=== PATIENT | male | born 1945 | race Caucasian/White ===

== ENCOUNTER → 2016-06-19 | Day surgery (SDC) | payer OTHER ==
--- NOTE | 2016-06-05 21:44 | HP ---
CC: Dr. Rose; Dr. Baig ADMISSION HISTORY AND PHYSICAL: DATE OF ADMISSION: 06/19/16 ATTENDING SURGEON: Edgard Lopez MD CHIEF COMPLAINT: Right inguinal hernia. HISTORY OF PRESENT ILLNESS: This is a 71-year-old male with Parkinson disease who was found on exam by Dr. Baig to have a right inguinal hernia. The patient states that he has had some sensitivi ty in the area of the right groin intermittently over the past 3 months, but nothing to suggest inca rceration or strangulation. Exam by Dr. Lopez on 05/20/16 confirmed the presence of a moderate- si zed reducible and nontender right inguinal hernia. No hernia was noted on the left. Dr. Lopez dis cussed with him the options for repair including surgical approaches. The patient understands the i ndications, risks, benefits, and alternatives including the option of no surgery for now and would l asaf to proceed as scheduled with open repair of right inguinal hernia with mesh. PAST MEDICAL HISTORY: Parkinson disease (followed by Dr. Deleon), BPH (followed by Dr. Baig), hypothyroidism (on replacement), and memory impairment. PAST SURGICAL HISTORY: Include decompressive surgery L4-5 in 2014 done in [facility] with proble ms with postoperative hypotension. He had a prior lumbar surgery here in [place]. He has also had p rior right ankle surgery and appendectomy remotely. No additional surgical or anesthesia problems r eported. CURRENT MEDICATIONS: 1. Donepezil 5 mg 2 tablets at bedtime. 2. Carbidopa/levodopa 25/100 mg one-half tablet 7 times daily. 3. Amantadine 100 mg b.i.d. 4. Selegiline 5 mg 1 tablet b.i.d. in the morning and at noon. 5. Flomax 0.4 mg once daily. 6. Levothyroxine 125 mg once daily. 7. Namenda 28 mg every day. 8. Tylenol p.r.n. 9. Sertraline (just started 25 mg once daily and to titrate to 50 mg once daily). 10. Clonazepam 0.5 mg once daily p.r.n. for anxiety (has not needed). 11. The patient also uses an unspecified topical medication p.r.n. for rosacea. ALLERGIES: None known. FAMILY HISTORY: Negative for anesthesia problems, bleeding, or clotting disorders. SOCIAL HISTORY: The patient is . 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 He denies use of tobacco. He drinks an average of one-half glass of wine per day. He denies any other recreational drug use. REVIEW OF SYSTEMS: General: No recent constitutional symptoms or acute illnesses. His weight has r emained relatively stable. Cardiovascular: No history of hypertension, chest pain, palpitations, o r heart murmur. Respiratory: No history of asthma, chronic cough, or shortness of breath. GI: No problems reported. : BPH. No recent changes. Endocrine: He is on thyroid replacement. No his tory of diabetes. Neuropsych: No as above. PHYSICAL EXAMINATION GENERAL: A well-nourished, well-developed male, in no acute distress. VITAL SIGNS: Height 69 inches, weight 176 pounds, temperature 97.6, blood pressure 124/78, pulse 56 , and respirations 18. HEENT: Pupils equal, round, and reactive. EOMs intact. No conjunctival pallor. Oropharynx, teeth in good repair. No intraoral lesions. NECK: No lymphadenopathy, thyromegaly, or masses. LUNGS: Clear to auscultation. No wheezes. HEART: Regular rate and rhythm. No murmur appreciated. ABDOMEN: Soft, nontender to palpation. No palpable masses or organomegaly. Right groin hernia per Dr. Lopez's exam. No hernia on the left and testes are otherwise normal without palpable masses. RECTAL: Not done. BACK: No spinous process or CVA tenderness. EXTREMITIES: No edema. NEUROLOGIC: Grossly intact though he does have some tremor of the right upper extremity. Some stif fness with ambulation and some Parkinson's-like facial features. SKIN: Warm and dry. No suspicious rashes or lesions noted. IMPRESSION: Right inguinal hernia. PLAN: Open repair, right inguinal hernia with mesh. DWAYNE PERSAUD [id number]/[facility] #: [id number]
[~2016-06-19] MED LIST: Acetaminophen TAB* 325 MG PO PRN; Buffered Lidocaine 1% SYR 3ML* 3 ML/SYR SYRINGE INTRADERM ONE; Buffered Lidocaine 1% SYR 3ML* 3 ML/SYR SYRINGE ONE; Bupivacaine 0.5% W/EPI SDV* 30 ML VIAL ONE; Lidocaine 1% INJ* 10 MG/ML 30 ML SDV ONE; Lidocaine 2% MPF* 2 ML VIAL ONE; Propofol* 10 MG/ML 20 ML BTL IV PUSH ONE; ceFAZolin 2 GM PREMIX (*) 2 GM/50 ML BAG IVPB ONE; fentaNYL* 50 MCG/ML 2 ML VIAL (100 MCG VIAL) ONE; traMADol TAB* 50 MG PO PRN
[2016-06-19 09:04] VITALS: BP 126/75
--- NOTE | 2016-06-19 11:09 | OP ---
CC: Dr. Edgard Lopez; Dr. Rose; Dr. Baig OPERATIVE REPORT: DATE OF OPERATION: 06/19/16 DATE OF : 47 SURGEON: Edgard Lopez MD DREDGE OPERATOR SUPERVISOR: DWAYNE Guardado ANESTHESIOLOGIST: Gaurav Hawk MD ANESTHESIA: LMAC. PRE-OP DIAGNOSIS: Right inguinal hernia. POST-OP DIAGNOSIS: Right inguinal hernia. OPERATIVE PROCEDURE: Open right inguinal hernia repair with mesh. DESCRIPTION OF PROCEDURE: The patient was supine on the operative table. After adequate intravenou s sedation, compression stockings, Laurence Hugger warmer, and intravenous antibiotics, the right groin was clipped and prepped with antiseptic and draped in a sterile fashion. Local infiltrative anesthe moni was administered. Approximately 2-1/2 to 3-inch incision was created. Dissection carried down t o the tissue layers to the external oblique, which was opened in the direction of its fibers. The c ord structures were dissected free and an indirect sac was identified, dissected free and reduced. There was no direct space hernia. A cone mesh plug was placed into the internal ring, sutured with 2-0 Polysorb. A second piece of mesh was placed over the inguinal floor, sutured at the tubercle. Tails were split, brought around the cord structures, and tacked down laterally. External oblique wa s closed over top with 2-0 Polysorb, Nicolás's with 3-0 Polysorb, skin with 4-0 Surgipro followed by sterile dressings. He tolerated the procedure well. He was brought to Recovery in good condition. No complications. No drains. No pathologic specimens. Sponge and instrument counts correct. Rubi mated blood loss was less than 10 mL. [id number]/[facility] #: [id number]
== END | disposition home or self-care (01) ==
LOC: OR 06:02
PROVIDERS: ATTEND Surgery
DX: K40.90 Unilateral inguinal hernia, without obstruction or gangrene, not specified as recurrent (principal); G20 Parkinson's disease; E03.9 Hypothyroidism, unspecified
CPT/HCPCS: C1781; J0690; J2704; J3010

== ENCOUNTER 2018-05-21 08:52 | Inpatient (IN) | payer MEDICARE, OTHER ==
--- NOTE | 2018-05-21 09:29 | ED ---
Abdominal Pain/Male - HPI Summary HPI Summary: This pt is a 73 y/o male [facility] c/o abdominal pain x2 days. reports that pt's pain has worsened over the last 24 hours. states pt also has decreased appetite, weakness, and confusion (more than usual per ). Per , pt fell yesterday and hit his head on the right side. Denies LOC. also notes pt had a normal meal 2 days ago. Denies fever, chills, chest pain, SOB, nausea, vomiting, headache. states pt was treated for a UTI and finished the antibiotic course 3 days ago. Pt followed up with his urologist and was told he no longer had a UTI. reports pt had a CT scan a couple of months ago that showed a hernia. PMHx includes parkinson's disease, chronic back pain. - History of Current Complaint Chief Complaint: EDAbdPain Stated Complaint: ABD PAIN Time Seen by Provider: 05/21/18 09:18 Hx Obtained From: Patient, Family/[employer] - Onset/Duration: Lasting Days - 2, Still Present, Worse Since - the past 24 hours Timing: Lasting Days - 2 Severity Currently: Severe Pain Intensity: 10 Pain Scale Used: 0-10 Numeric Location: Diffuse Radiates: No Aggravating Factor(s): Nothing Alleviating Factor(s): Nothing Associated Signs And Symptoms: Positive: Decreased Appetite, Other - POS: weakness, confusion. Negative: Fever, Chest Pain, Nausea, Vomiting - Allergies/Home Medications Allergies/Adverse Reactions: Allergies Allergy/AdvReac Type Severity Reaction Status Date / Time No Known Allergies Allergy Verified 02/09/18 13:53 PMH/Surg Hx/FS Hx/Imm Hx Endocrine/Hematology History: Reports: Hx Thyroid Disease Denies: Hx Diabetes Cardiovascular History: Denies: Hx Hypertension, Hx Pacemaker/ICD Respiratory History: Denies: Hx Asthma History: Reports: Other Problems/Disorders - prostrate problems Denies: Hx Renal Disease Musculoskeletal History: Reports: Hx Back Problems, Other Musculoskeletal History - STENOSIS L3/4- HAD SURGERY X 2 - 6 1/2 AND 2 1/2 YEARS AGO Sensory History: Reports: Hx Contacts or Glasses - glasses for reading Denies: Hx Hearing Aid Opthamlomology History: Reports: Hx Contacts or Glasses - glasses for reading Neurological History: Reports: Other Neuro Impairments/Disorders - Parkinson's, PAIN CLINIC PATIENT Psychiatric History: Reports: Hx Anxiety, Hx Panic Disorder - WHEN PT GETS ANXIOUS HE HAS DIFFICULTY UNDERSTANDING - Surgical History Surgery Procedure, Year, and Place: RT ANKLE [id number],APPY 1964,SPINE LAMINECTOMY-2007 (Dr. Hernandez), BACK SURGERY-[facility]. HERNIA REPAIR 06/2016 Hx Anesthesia Reactions: No Infectious Disease History: No Infectious Disease History: Denies: Traveled Outside the [place] in Last 30 Days - Family History Known Family History: Positive: Cardiac Disease - mother Family History: father with lung CA (smoker) - Social History Alcohol Use: Weekly Alcohol Amount: 3 glasses of wine/week Substance Use Type: Reports: None Smoking Status (MU): Never Smoked Tobacco Review of Systems Constitutional: Other - POS: decreased appetite Negative: Fever, Chills Negative: Chest Pain Negative: Shortness Of Breath Positive: Abdominal Pain. Negative: Vomiting, Nausea Musculoskeletal: Other - POSITIVE: chronic back pain Neurological: Other - POSITIVE: confusion Positive: Weakness. Negative: Headache All Other Systems Reviewed And Are Negative: Yes Physical Exam - Summary Physical Exam Summary: VITAL SIGNS: Reviewed. GENERAL: Patient is a well-developed and nourished male who is lying comfortable in the stretcher. Patient is not in any acute respiratory distress. HEAD AND FACE: Normocephalic and atraumatic. EYES: PERRLA, EOMI x 2, No injected conjunctiva. EARS: Hearing grossly intact. Ear canals and tympanic membranes are WNL. MOUTH: Oropharynx within normal limits. NECK: Supple, trachea is midline, no adenopathy, no JVD. CHEST: Symmetric, no tenderness at palpation LUNGS: Clear to auscultation bilaterally. No wheezing or crackles. CVS: RRR, S1 and S2 present, no murmurs or gallops appreciated. ABDOMEN: Soft, diffuse abd tenderness with some guarding. No signs of distention. Positive bowel sounds. No rebound and no masses palpated. No abdominal bruit or pulsations. EXTREMITIES: FROM in all major joints, no edema, no cyanosis or clubbing. NEURO: Alert and oriented x 3. No acute neurological deficits. Speech is normal. SKIN: Dry and warm Triage Information Reviewed: Yes Vital Signs On Initial Exam: Initial Vitals Temp Pulse Resp BP Pulse Ox 97.7 F 61 16 97/66 100 12/21/18 08:58 05/21/18 08:58 05/21/18 08:58 05/21/18 08:58 05/21/18 08:58 Vital Signs Reviewed: Yes Diagnostics - Vital Signs Vital Signs Temp Pulse Resp BP Pulse Ox 05/21/18 08:58 97.7 F 61 16 97/66 100 - Laboratory Result Diagrams: 05/21/18 09:45 05/21/18 09:45 Lab Statement: Any lab studies that have been ordered have been reviewed, and results considered in the medical decision making process. - Radiology Abdomen XR Radiology Interpretation Completed By: Radiologist Summary of Radiographic Findings: IMPRESSION: Nonspecific bowel gas pattern. Large amount of stool throughout the colon. Dr. Gerard has reviewed this report. - CT Abdomen/Pelvis CT CT Interpretation Completed By: Radiologist Summary of CT Findings: IMPRESSION: Moderate to large amount of free air in the abdomen most concentrated in the upper abdomen although scattered throughout. There is focal increased area of free air along the fourth portion of the duodenum. The possibility that this may represent the origin of the perforation should BE considered. Left-sided inguinal hernia containing omentum. Findings discussed with Dr. Geradr at 10:24 AM. - EKG 09:41 Cardiac Rate: NL - at 73 bpm EKG Rhythm: Sinus Rhythm EKG Comparison: No Significant Change - from prior EKG on 04/05/08 Summary of EKG Findings: No ST elevations. Q wave in lead III. Re-Evaluation - Re-Evaluation First Eval Re-Evaluation Time: 10:42 Comment: I discussed the CT results with the pt and . Abdominal Pain Fem Course/Dx - Course Assessment/Plan: This pt is a 73 y/o male presenting to [facility] c/o abdominal pain x2 days. reports that pt's pain has worsened over the last 24 hours. states pt also has decreased appetite, weakness, and confusion (more than usual per ). Per , pt fell yesterday and hit his head on the right side. Denies LOC. also notes pt had a normal meal 2 days ago. Denies fever , chills, chest pain, SOB, nausea, vomiting, headache. states pt was treated for a UTI and finished the antibiotic course 3 days ago. Pt followed up with his urologist and was told he no longer had a UTI. reports pt had a CT scan a couple of months ago that showed a hernia. PMHx includes parkinson's disease, chronic back pain. Blood work without any significant abnormality except for increased WBC of 14.4, INR is 1.21, sodium 134, BUN is 35 creatinine is 1.62 consistent with an acute renal insufficiency. Glucose is 118, total bilirubin is 1.3, and CRP is 244. X-ray of the abdomen shows no acute pathology. Abdominal pelvic CT impression: moderate to large amount of free air in the abdomen most concentrating in the upper abdomen although the scattered throughout. There is a focal increased areas of free air and on the fourth portion of the duodenum. The possibility that this may represent the origin of the perforation should be considered. Left-sided inguinal hernia containing omentum. I discussed the case with Dr. Padilla, surgeon, who recommends an NG tube and Orellana catheter and he will consult for this patient. After Dr. Padilla assessed the patient in the emergency room, he accepted the patient for admission and pt will go to the OR from the emergency department. Patient continues to be hemodynamically stable, alert and oriented 3. - Diagnoses Provider Diagnoses: Peritonitis, Small bowel perforation - Provider Notifications Discussed Care Of Patient With: Rory Padilla Time Discussed With Above Provider: 10:30 Instructed by Provider To: Other - I discussed pt care with Dr. Padilla, surgeon , who recommends NG tube and orellana catheter and he will consult on the pt. Discharge - Sign-Out/Discharge Documenting (check all that apply): Patient Departure - Admit to [facility] - Discharge Plan Condition: Stable Disposition: ADMITTED TO [facility] - Billing Disposition and Condition Condition: STABLE Disposition: Admitted to [facility] - Attestation Statements Document Initiated by Feroz: Yes Documenting Scribe: Amaris Washington Provider For Whom Feroz is Documenting (Include Credential): Aaron Gerard MD Scribe Attestation: Amaris Hanna, scribed for Aaron Gerard MD on 05/21/18 at 1902. Scribe Documentation Reviewed: Yes Provider Attestation: The documentation as recorded by the Amaris peck accurately reflects the service I personally performed and the decisions made by me, Aaron Gerard MD Status of Scribe Document: Viewed
[2018-05-21] MEDS ORDERED: NS 0.9% 1000 ML* 1,000 ML IV ONE ×2 (09:34→10:34)
[2018-05-21 10:13] LABS: Activated Partial Thrombo Time 29.4 seconds (26.0-36.3); INR 1.21 (0.77-1.02)
[2018-05-21 10:15] LABS: Hematocrit 42 % (42-52); Hemoglobin 14.2 g/dl (14.0-18.0); Mean Corpuscular HGB Conc 34 g/dl (31-36); Mean Corpuscular Hemoglobin 30 pg (27-31); Mean Corpuscular Volume 90 fL (80-94); Red Cell Distribution Width 14 % (10.5-15); White Blood Count 14.4 10^3/ul (3.5-10.8)
[2018-05-21 10:22] LABS: Troponin I 0.02 ng/mL (<0.04)
[2018-05-21 10:24] LABS: ALT 12 U/L (7-52); Albumin 4.3 g/dL (3.2-5.2); Albumin/Globulin Ratio 1.4 (1-3); Alkaline Phosphatase 100 U/L (34-104); BUN/Creatinine Ratio 21.6 (8-20); Blood Urea Nitrogen 35 mg/dL (6-24); C Reactive Protein 244.86 mg/L (<8.01); CO2 Carbon Dioxide 24 mmol/L (22-32); Chloride 102 mmol/L (101-111); EGFR African American 50.9 (>60); EGFR Non-African American 42.1 (>60); Glucose 118 mg/dL (70-100); Sodium 134 mmol/L (135-145); Total Protein 7.3 g/dL (6.4-8.9)
[2018-05-21 10:25] LABS: BNP 34 pg/mL (<=100)
[2018-05-21 10:51] LABS: ABS Basophils 0 10^3/ul (0-0.2); ABS Eosinophils 0 10^3/ul (0-0.6); ABS Lymphocytes 0.6 10^3/ul (1.0-4.8); ABS Monocytes 0.5 10^3/ul (0-0.8); ABS Neutrophils 13.2 10^3/ul (1.5-7.7); ABS Nucleated RBC 0 10^3/ul; Eosinophil % 0 %; Lymphocyte % 4.3 %; Mean Platelet Volume 8.7 fL (7.4-10.4); Nucleated Red Blood Cells % 0.2; Platelet Count 195 10^3/ul (150-450)
[2018-05-21 10:58] LABS: Anion Gap 8 mmol/L (2-11)
[2018-05-21 11:35] LABS: Urine Appearance Cloudy; Urine Bacteria Absent (Absent); Urine Bilirubin Negative (Negative); Urine Blood Negative (Negative); Urine Color Amber; Urine Glucose Negative (Negative); Urine Granular Casts Present (Absent); Urine Ketones Trace (Negative); Urine Nitrite Negative (Negative); Urine Protein 1+(30 mg/dL) (Negative); Urine Red Blood Cell 2+(6-10/hpf) (Absent); Urine Specific Gravity 1.024 (1.010-1.030); Urine Squamous Epithelial Cell Present (Absent); Urine Urobilinogen Negative (Negative); Urine White Blood Cell Trace(0-5/hpf) (Absent)
[2018-05-21] MEDS ORDERED: Midazolam* 1 MG/ML 5 ML VIAL (5 MG) ONE (12:14)
[2018-05-21] MEDS ORDERED: fentaNYL* 50 MCG/ML 2 ML VIAL (100 MCG VIAL) ONE ×4 (12:14→16:33)
[2018-05-21] MEDS ORDERED: Dexamethasone IV* 4 MG/ML 1 ML (4 MG) ONE (12:14)
[2018-05-21] MEDS ORDERED: Propofol* 10 MG/ML 20 ML BTL ONE (12:14)
[2018-05-21] MEDS ORDERED: Ondansetron INJ* 2 MG/ML VIAL ONE ×2 (12:14→16:33)
[2018-05-21] MEDS ORDERED: Cisatracurium* 2 MG/ML MDV 5 ML ONE ×2 (12:14→13:51)
[2018-05-21] MEDS ORDERED: KETAMINE HCL* 50 MG/ML 10 ML VIAL ONE (12:14)
[2018-05-21] MEDS ORDERED: Lidocaine 2% PF * 5 ML VIAL ONE (12:14)
[2018-05-21] MEDS ORDERED: Bupivacaine 0.25% EPI 200,000* 30 ML SDV ONE (12:15)
[2018-05-21] MEDS ORDERED: Phenylephrine INJ* 10 MG/ML 1 ML VIAL (10 MG) ONE (12:15)
--- NOTE | 2018-05-21 12:32 | CONSULT ---
Consult Consult: SEE DICTATED H&P This 73 yo M on NSAIDs for back pain with Parkinson's presented to ED with 2 day h/o abd pain, worse over 1 day. On exam he has peritonitis and on imaging he has free air. Likely diagnosis is perforated PUD. I discussed findings with the patient and his . I have recommended laparoscopy, surgical exploration, removal or repair of perforated viscus. He was explained the operation, indication, risks, benefits, alternatives and option of no treatment. He understands that findings at surgery will determine the procedure. Risks explained including, not limited to: bleeding, infection, pain , scarring, blood clots, pneumonia, stroke, cardiac event, worsening of mental status, need for open procedure or additional procedures, and risk of GETA. All questions answered. He stated understanding and agrees to proceed.
[2018-05-21] MEDS ORDERED: ceFAZolin 2 GM PREMIX in ORs 2 GM/50 ML BAG IVPB ONE (12:43)
--- NOTE | 2018-05-21 12:55 | HP ---
CC: Dr. Rose * DATE OF ADMISSION: 05/21/2018. ATTENDING SURGEON: Dr. Rory Padilla * (DWAYNE Guardado dictating). CHIEF COMPLAINT: Perforated viscus. HISTORY OF PRESENT ILLNESS: This is a 73-year-old male with advanced Parkinson' s disease who began to feel ill Thursday evening. He describes pain in the lower abdomen at that time associated with some anorexia, although he did eat his supper on Thursday. He describes a feeling of an "explosion," though he did not have severe pain initially. Pain has progressed over the last 24 hours to the point where it is involving the entire abdomen, though it does tend to move. It is also associated with anorexia, slight nausea, but no vomiting. The patient does have some chronic issues with constipation. He did take MiraLax yesterday with some bowel movement last evening and last night. He does have known pancolonic diverticulosis, but has never had an episode of diverticulitis. His last colonoscopy was July 2017. His previous abdominal surgeries include an appendectomy and a right inguinal herniorrhaphy. PAST MEDICAL HISTORY: Parkinson's disease, BPH, hypothyroidism, memory impairment, chronic low back pain. PAST SURGICAL HISTORY: Open right inguinal hernia June 2016, decompressive lumbar surgery in 2013, right ankle surgery and appendectomy remotely. He did have significant hypotension following his lumbar surgery. CURRENT MEDICATIONS: 1. Selegiline 5 mg b.i.d. 2. Amantadine 100 mg b.i.d. 3. Tamsulosin 0.4 mg once daily. 4. Memantine 28 mg once daily. 5. Levothyroxine 125 mcg once daily. 6. Carbidopa/Levodopa 25-100 one-half tablet 6 times daily. 7. Diclofenac 75 mg b.i.d. 8. Mirabegron (Myrbetriq) 25 mg once daily. 9. Donepezil 5 mg b.i.d. DRUG ALLERGIES: None known. FAMILY HISTORY: Negative for anesthesia problems, bleeding or clotting disorders. SOCIAL HISTORY: The patient is . 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 He denies the use of tobacco. He drinks on average one-half glass of wine per day. REVIEW OF SYSTEMS: General: He finished oral antibiotics for a UTI on May 18. He was also seen by Dr. Baig at that time. He has been seen regularly by the Pain [facility] for lumbar back pain. HEENT: No additions. Cardiovascular: No history of chest pain, palpitations, hypertension, or heart murmur. Respiratory: No history of asthma, chronic cough, or shortness of breath. GI: As above. He also has a known left inguinal hernia by recent studies and confirmed on today's CT. It has been minimally symptomatic. : BPH. Endocrine: He is on thyroid replacement. No history of diabetes. Neuro/ Psych: Parkinson's disease, followed by Dr. Yeager. PHYSICAL EXAMINATION GENERAL: Well-nourished, well-developed male with typical Parkinson's features who appears in mild distress. SKIN: Warm and dry, no suspicious rashes or lesions. VITAL SIGNS: Height 5'9", weight 180 pounds. Temperature 97.7, blood pressure ranging from 97 to 120/66 to 76, pulse ranging from 61 to 74, respirations 16, room air saturation 97 to 100 percent. HEENT: Pupils equal and round, reactive. EOM's intact. Conjunctivae pink. Oropharynx: Mucus membranes moist. NECK: No lymphadenopathy, thyromegaly, or masses. LUNGS: Clear to auscultation. No rales or wheezes. HEART: Regular rate and rhythm. No murmur appreciated. ABDOMEN: Mildly distended, tympanitic, bowel sounds are present. Abdomen is firm with diffuse tenderness consistent with peritonitis. There is guarding present. There is a small palpable, reducible left inguinal hernia. EXTREMITIES: No edema. GENITALIA: Otherwise not examined. RECTAL: Not done. NEUROLOGIC: Consistent with known Parkinson's disease. IMAGING STUDIES: Noncontrast CT abdomen and pelvis: Reveals free air concentrated in the upper abdomen around the liver and concentration around a portion of the duodenum. There is also scattered free air in the lower abdomen and pelvis. There is diverticulosis, but no definite diverticulitis noted. There is omentum-containing left inguinal hernia. IMPRESSION: Perforated viscus most likely duodenum secondary to NSAID use. PLAN: The patient to be seen by Dr. Padilla for confirmation of findings and plan. Will likely need operative intervention, i.e. laparoscopy with oversewing of perforated duodenal ulcer. MARIA E PENA, [place] [id number]/[facility] #: [id number] NEY
[2018-05-21] MEDS ORDERED: Zosyn 3.375 GM IV - ED ONCE IVPB ONE ×2 (14:00)
[2018-05-21] MEDS ORDERED: Ondansetron INJ* 2 MG/ML VIAL IV PRN (14:40)
[2018-05-21] MEDS ORDERED: Naloxone* 0.4 MG/ML 1 ML VIAL IV PRN (14:40)
[2018-05-21] MEDS ORDERED: Neostigmine Methylsulfate* 1 MG/ML 10 ML VIAL (1 mg/ml) ONE (14:50)
[2018-05-21] MEDS ORDERED: Glycopyrrolate IV* 0.2 MG/ML 1 ML VIAL ONE (14:50)
--- NOTE | 2018-05-21 16:22 | BRIEFOPN ---
Brief Operative Note - Surgery Procedures: PREOP DX: PERFORATED VISCUS POSTOP DX: PERFORATED DIVERTICULITIS PROC: DIAGNOSTIC LAPAROSCOPY; LAPAROTOMY; SIGMOID COLECTOMY; END COLOSTOMY; HARPAL POUCH SURG: MECENAS ASSIST: FOSTER ANES: GET; TOAL EBL: <30ML IVF: 1.7 L CRYST SPEC: SIGMOID COLON DRAIN: NONE COMPL: NONE COND: STABLE TO RR FINDINGS: PERFORATION IN SIGMOID COLON WITH PURULENT FLUID IN PELVIS; EXUDATE IN UPPER ABDOMEN.
[2018-05-21] MEDS ORDERED: Naloxone* 0.4 MG/ML 1 ML VIAL IV PUSH PRN (16:26)
[2018-05-21] MEDS: fentaNYL* 50 MCG/ML 2 ML VIAL (100 MCG VIAL) IV PRN ×2 (16:36→16:50)
[2018-05-21] MEDS ORDERED: Morphine PCA ADULT* 5 MG/ML 30 ML ONE (16:49)
[2018-05-21] MEDS ORDERED: Morphine PCA ADULT* 5 MG/ML 30 ML PCA SCH (17:00)
[2018-05-21] MEDS: NS 0.9% 1000 ML* 1,000 ML IV SCH (17:50)
[2018-05-21] MEDS: Piperacillin/Tazobactam VIAL*) 3.375 GM in NS 0.9% 100 ML* 100 ML IVPB SCH (23:05)
[2018-05-22] MEDS: NS 0.9% 1000 ML* 1,000 ML IV SCH ×3 (03:13→22:44)
--- NOTE | 2018-05-22 05:04 | CONS ---
[facility] MEDICINE CONSULTATION REPORT: DATE OF ADMISSION: 05/21/18 DATE OF CONSULT: 05/21/18 PROVIDER: Romy Hill NP ATTENDING PHYSICIAN: Dr. Padilla. CONSULTING PHYSICIAN: Dr. Ange Conner (dictated by Romy Hill NP) REASON FOR CONSULT: Co-management of chronic medical conditions. HISTORY OF PRESENT ILLNESS: Mr. Zepeda is a 73-year-old with a past medical history significant for Parkinson's, hypothyroid, BPH, who presented to the emergency room for evaluation of abdominal pain. The patient reports that he started having abdominal discomfort approximately 2 days ago that progressively worsened in the last 24 hours. He does report decreased appetite , weakness, and increased confusion. He states that yesterday afternoon, his abdominal pain became significantly worse and was significantly worse overnight , so he presented to the emergency room for further evaluation. He does report increased anxiety, increased confusion, and increased weakness as well as nausea since the abdominal pain has become progressively worse. He denies any vomiting, fever, or chills. He denies any chest pain, cough, congestion, or hemoptysis. He does report nausea. Denies any diarrhea. Does report significant [id number] abdominal pain. Denies any gross hematuria, dysuria, focal weakness, or sensory loss. Denies any visual complaints, dysphagia, arthralgias, myalgias, rashes, lesions, psychosis, or anxiety. The patient was evaluated at the bedside in preop. PAST MEDICAL HISTORY: Significant for: 1. Parkinson's. 2. Chronic back pain. 3. Hypothyroidism. 4. BPH. PAST SURGICAL HISTORY: 1. Hernia repair. 2. Back surgery. 3. Left ankle ORIF. 4. Appendectomy in 1963. 5. Laminectomy in 2007. HOME MEDICATIONS: Include: 1. Symmetrel 100 mg p.o. b.i.d. 2. Synthroid 125 mcg p.o. daily. 3. Namenda 28 mg p.o. daily. 4. Selegiline 5 mg p.o. daily. 5. Tamsulosin 0.4 mg p.o. daily. 6. Carbidopa/levodopa 25/100 half tablet 6 times daily. 7. Donepezil (Aricept) 5 mg p.o. b.i.d. 8. Voltaren 75 mg p.o. b.i.d. 9. Mirabegron 25 mg p.o. daily. ALLERGIES: No known drug allergies. FAMILY HISTORY: No reported history of coronary artery disease or diabetes. Father with a history of lung cancer. Grandfather with a history of cancer. SOCIAL HISTORY: Denies any tobacco or illicit drug use. Does report occasional alcohol use. He is . Surrogate decision maker in the event he is unable to make his own decisions is his . He is a full code. REVIEW OF SYSTEMS: There has been no fever, chills, or unintentional weight loss. Denies any chest pain or edema. Denies any cough, congestion, or hemoptysis. Denies any shortness of breath. GI: Does report nausea and mid-to- lower diffuse abdominal pain. Denies any vomiting or diarrhea. : Denies any gross hematuria or dysuria. Denies any urinary frequency. Neuro: Denies any focal weakness or sensory loss. Eyes: No visual complaints. ENT: No dysphagia. Musculoskeletal: No arthralgias or myalgias. Skin: No rashes or lesions. Psych: No depression or anxiety. PHYSICAL EXAM: Vital Signs: Temperature was 98.1, heart rate 73, respirations 18, O2 saturation 96% on room air, blood pressure 143/92. General: Mr. Zepeda is a 73-year-old male. He is sitting on the stretcher in preop. He appears to be in mild distress. Neurologic: He is awake, alert, oriented x3. He is able to move all 4 extremities with 5/5 strength. There is no focal weakness or sensory loss. HEENT: Head is atraumatic, normocephalic. Eyes: EOMs are intact. Sclerae anicteric and not pale. Oral mucosa appears to be moist. Cardiac: S1, S2. Regular rate and rhythm. No murmurs, rubs, or gallops. Lungs are clear to auscultation bilaterally. No wheezes, rales, or rhonchi. Abdomen with diffuse tenderness to palpation. Bowel sounds are hypoactive x4. Extremities: No cyanosis or edema. Skin is intact. LABORATORY DATA AND DIAGNOSTIC STUDIES: WBCs are 14.4, RBCs 4.70, hemoglobin was 14.2, hematocrit 42, platelet count was 195. INR was 1.21. Sodium 134, chloride 102, carbon dioxide was 24, anion gap was 8, BUN was 35, creatinine 1.62. Lactic acid was 1.3. Total bilirubin 1.30, AST was not reported, ALT was 12, alkaline phosphatase was 100. Ammonia 46. Troponin 0.02. C-reactive protein 244.86, BNP was 34, lipase was 14. Urine: Isabel; cloudy; pH was 5; specific gravity 1.024; urine protein was 1+; urine ketones were trace; blood, nitrites, bilirubin, urobilinogen, urine leukocyte esterase were all negative; urine wbc's were trace; urine rbc's 2+; urine squamous epithelial cells were present; bacteria were absent; hyaline casts were present; granular casts were present; urine glucose was negative. CT of the abdomen, radiologist's impression: [id number] amount of free air in the abdomen, mostly concentrated in the upper abdomen, although scattered throughout the focal increased area of free air along the fourth portion of the duodenum, possibility is that may represent the origin of perforation should be considered, left-sided inguinal hernia containing omentum. IMPRESSION AND PLAN: Mr. Zepeda is a 73-year-old male who presented to the emergency room with progressively worsening abdominal pain and was found to have free air in his abdomen. He was seen by Surgery and will be going to the OR in emergent case. Our recommendations are as follows: 1. Abdominal pain: free air noted on the CT. Management per surgery. 2. Parkinson's. I would recommend continuing his carbidopa/levodopa. I did discuss this with Neurology. At this time, there is no replacement for his carbidopa/levodopa. At this time, the patient is n.p.o. per Surgery and does have an NG tube placement. When the patient can tolerate oral medications again , we will resume his carbidopa/levodopa. We will continue to hold his Namenda and Aricept at this time until orals can be resumed. 3. Benign prostatic hypertrophy. We will continue to hold his tamsulosin until he is able to tolerate p.o. again. 4. Hypothyroid. I will convert his Synthroid to 60 mcg IV daily until he is able to tolerate p.o. and then it can be converted back to 125 mcg p.o. daily. 5. DVT prophylaxis. Heparin will be given subcu. 6. Code status. He is a full code. 7. FEN: He is currently n.p.o. as per Surgery. 8. Diet will be per Surgery. TIME SPENT: Time spent on this consultation was 45 minutes, more than half that time was spent at the bedside reviewing events leading thus far to his hospitalization, performing physical exam, and reviewing my plan of care. I have discussed this with my attending, Dr. Ange Conner, she is in agreement with my plan. ROMY HILL, RELATIONS SPECIALIST [id number]/CPS #: [id number] NEY
--- NOTE | 2018-05-22 05:37 | OP ---
CC: Leroy Rose MD * DATE OF OPERATION: 05/21/18 - ROOM #337 DATE OF : 47 SURGEON: Rory Padilla MD NUTRITIONAL ASSISTANT: Dr. Jimenez. ANESTHESIOLOGIST: Dr. Iniguez. ANESTHESIA: General endotracheal. PRE-OP DIAGNOSIS: Perforated viscus. POST-OP DIAGNOSIS: Perforated diverticulitis. OPERATIVE PROCEDURE: Diagnostic laparoscopy, laparotomy, sigmoid colectomy, end colostomy, and Rito pouch. ESTIMATED BLOOD LOSS: Less than 30 mL. IV FLUIDS: 1.7 L of crystalloid. SPECIMEN: Sigmoid colon. DRAINS: None. COMPLICATIONS: None. COUNTS: The instrument, needle, and sponge, counts were correct. DESCRIPTION OF PROCEDURE: The patient was brought to the operating room and placed on the table supine. Sequential compression devices were placed in both lower extremities. General anesthesia was administered. He was positioned and padded appropriately. He was prepped and draped in the usual sterile fashion. He received appropriate intravenous antibiotics. Time-out was performed. Local anesthetic was infiltrated in the umbilical site and a transumbilical vertical incision was created. Using an open technique, peritoneal cavity was accessed. A 12-mm trocar was placed and carbon dioxide was insufflated to a pressure of 15 mmHg. Laparoscope was introduced and there was noted to be some fibrinous exudate into upper abdomen. Inspection began with visualization of the upper abdomen. There was notable bubbling of fluid beneath the left lobe of the liver. The next trocar was 5 mm and that was placed in the left upper quadrant and using blunt dissector, the liver lobe was elevated and there appeared to be no fluid in this area. The anterior surface of the antrum of the stomach appeared normal. The entire anterior stomach was inspected and there appeared to be no evidence of inflammation or perforation. The gallbladder appeared distended. There was no obvious purulence, bile, or fluid in this area. The area above the right lobe of the liver was inspected and appeared to be normal. At this point, attention was turned to the lower abdomen and upon positioning the patient in Trendelenburg and inspection of the pelvis revealed purulent fluid in the pelvis and there was evidence of perforated sigmoid diverticulitis with extensive exudate over the entire sigmoid colon. At this point, it was decided to covert to laparotomy. Lower midline laparotomy was created extending the umbilical incision inferiorly to above the symphysis pubis. There was a generous omentum that was adherent to the sigmoid colon and this was freed. There was evidence of perforated diverticulum at that point in the proximal to mid sigmoid. The sigmoid was quite mobile on the mesentery and it was decided to proceed with sigmoid resection with end colostomy and Rito pouch. The peritoneal attachment to the sigmoid colon was excised with cautery with sharp and blunt dissection. A window was then created in the normal appearing segment of the descending colon. It was then divided with the JOANNA stapler and the distal margin of resection was selected at the top of the rectum. This was also quite mobile. A window created through the mesentery there and the bowel again divided with the stapler. The intervening mesentery was then divided with the LigaSure, staying close to the bowel, completely freeing the sigmoid colon. This specimen was marked with suture distally and submitted to Pathology. Copious lavage of the abdomen was performed until clear. Exploration then proceeded with examination of the remaining portions of the colon, which were normal to palpation save for couple of areas where stool balls were palpated. The appendix appeared to be surgically absent. The small bowel was run from the ligament of Treitz distally and there was hyperemia of the bowel that appeared secondary to the inflammatory process within the abdomen but there was no evidence of inflammation of the bowel otherwise and no evidence of abnormalities other than exudative material. Palpation of the liver both right and left lobes revealed no abnormalities and the gallbladder was distended but normal to palpation with no stones. The anterior stomach was palpated and felt to be normal and the gastric tube position was confirmed within the body of the stomach. The omentum was inspected. There were some areas that were bleeding that were controlled with LigaSure. At this point, it was decided to perform a colostomy. In order to mobilize the descending colon, peritoneal attachments along the line of Toldt were incised using combination of cautery and LigaSure, sharp and blunt dissection. While mobilizing the descending colon, the left ureter was identified and preserved. After adequate length of colon had been mobilized to create the ostomy, the ostomy site was selected in the left lower quadrant. A disc of skin was removed and the aperture of the ostomy was created through the left rectus muscle. The proximal colon was delivered through this. The abdomen was then closed after placing the omentum down into the pelvis, the fascia was closed with #1 PDS running. The subcutaneous tissues were irrigated and the closure at the umbilicus was performed with interrupted 4-0 Monocryl in subcuticular fashion and the remaining incision was closed with intermittent placement of surgical lili and then packing was placed into the wound. The wound was then covered with a towel and the colostomy was matured with a 4-0 Vicryl suture. Stool was forthcoming. The ostomy appeared pink and digital examination revealed no obstruction. The appliance was applied to the ostomy site and dressings were applied to the wounds. The patient was extubated uneventfully and transferred to the recovery room in stable condition. [id number]/CPS #: [id number] MTDD
[2018-05-22] MEDS: Levothyroxine INJ* 100 MCG/5 ML VIAL IV SCH (06:17)
[2018-05-22] MEDS: Piperacillin/Tazobactam VIAL*) 3.375 GM in NS 0.9% 100 ML* 100 ML IVPB SCH ×3 (06:21→21:54)
[2018-05-22 06:38] LABS: ABS Basophils 0 10^3/ul (0-0.2); ABS Eosinophils 0 10^3/ul (0-0.6); ABS Lymphocytes 0.6 10^3/ul (1.0-4.8); ABS Monocytes 0.4 10^3/ul (0-0.8); ABS Neutrophils 9.6 10^3/ul (1.5-7.7); ABS Nucleated RBC 0 10^3/ul; Eosinophil % 0 %; Hematocrit 35 % (42-52); Lymphocyte % 5.5 %; Mean Corpuscular HGB Conc 34 g/dl (31-36); Mean Corpuscular Hemoglobin 31 pg (27-31); Mean Corpuscular Volume 89 fL (80-94); Mean Platelet Volume 9.2 fL (7.4-10.4); Nucleated Red Blood Cells % 0; Platelet Count 176 10^3/ul (150-450); Red Blood Count 3.91 10^6/ul (4.00-5.40); Red Cell Distribution Width 14 % (10.5-15); White Blood Count 10.6 10^3/ul (3.5-10.8)
[2018-05-22 06:53] LABS: Calcium 8.3 mg/dL (8.6-10.3); EGFR African American 100.4 (>60); EGFR Non-African American 82.9 (>60); Potassium 4.3 mmol/L (3.5-5.0)
[2018-05-22] MEDS: Heparin VIAL(*) 5000 UNITS/ML VIAL (FIVE THOUSAND) SUBCUT SCH ×3 (08:51→21:57)
--- NOTE | 2018-05-22 08:58 | PN ---
Progress Note - Progress Note Date of Service: 05/22/18 SOAP: Subjective: Pain is controlled. He has been confused and at bedside to calm him. Objective: Vital Signs Temp 97.8 F 05/22/18 07:31 Pulse 59 05/22/18 07:31 Resp 18 05/22/18 08:00 BP 114/59 05/22/18 07:31 Pulse Ox 97 05/22/18 08:00 Gen: NAD Abd: dressings intact; ostomy pink and edematous; nondistended, soft, mild diffuse tenderness. -BS. Active Medications Generic Name Dose Route Start Last Admin Trade Name Freq PRN Reason Stop Dose Admin Heparin Sodium (Porcine) 5,000 units 05/22/18 08:00 05/22/18 08:51 Heparin Vial(*) SUBCUT 5,000 units Q8HR ROMEO Administration Sodium Chloride 1,000 mls @ 100 mls/hr 05/21/18 16:15 05/22/18 03:13 Ns 0.9% 1000 Ml* IV 100 mls/hr PER RATE ROMEO Administration Piperacillin Sod/Tazobactam 100 mls @ 25 mls/hr 05/21/18 22:00 05/22/18 06:21 Sod 3.375 gm/ Sodium Chloride IVPB 25 mls/hr Q8H ROMEO Administration Morphine Sulfate 30 mls @ 0 mls/hr 05/21/18 17:00 05/21/18 17:50 Morphine Information Broker Adult* 5 Mg/Ml HEEL SEAT SANDER 0.1 mls/hr .change Q24H ROMEO Administration Protocol Per Protocol Levothyroxine Sodium 60 mcg 05/22/18 06:00 05/22/18 06:17 Synthroid Inj* IV 60 mcg 0600 ROMEO Administration Naloxone HCl 0.08 mg 05/21/18 16:26 Narcan* IV PUSH .Q2MIN PRN OVERSEDATION Intake & Output 05/21/18 05/22/18 05/22/18 18:59 06:59 18:59 Intake Total 3000 1152 Output Total 400 2055 Balance 2600 -903 Weight 180 lb Intake: IV Fluids 3000 1152 ABX - ZOSYN 110 LR 1850 NS (0.9%) 1042 NS 100ML, Zosyn 3.375G 100 NS 50ML, Cefazolin 2G 50 Oral 0 Output: NG Tube Drainage Amount 155 Orellana 400 1900 Colostomy 0 Laboratory Results - last 24 hr 05/21/18 05/21/18 05/21/18 09:45 09:45 09:45 WBC 14.4 H RBC 4.70 Hgb 14.2 Hct 42 MCV 90 MCH 30 MCHC 34 RDW 14 Plt Count 195 MPV 8.7 Neut % (Auto) 91.9 Lymph % (Auto) 4.3 Martin % (Auto) 3.7 Eos % (Auto) 0 Baso % (Auto) 0.1 Absolute Neuts (auto) 13.2 H Absolute Lymphs (auto) 0.6 L Absolute Monos (auto) 0.5 Absolute Eos (auto) 0 Absolute Basos (auto) 0 Absolute Nucleated RBC 0 Nucleated RBC % 0.2 INR (Anticoag Therapy) 1.21 H APTT 29.4 Sodium 134 L Potassium TNP Chloride 102 Carbon Dioxide 24 Anion Gap 8 BUN 35 H Creatinine 1.62 H Est GFR ( Amer) 50.9 Est GFR (Non-Af Amer) 42.1 BUN/Creatinine Ratio 21.6 H Glucose 118 H Lactic Acid Calcium 9.0 Magnesium 2.0 Total Bilirubin 1.30 H AST TNP ALT 12 Alkaline Phosphatase 100 Ammonia Troponin I 0.02 C-Reactive Protein 244.86 H B-Natriuretic Peptide Total Protein 7.3 Albumin 4.3 Globulin 3.0 Albumin/Globulin Ratio 1.4 Lipase 14 Urine Color Urine Appearance Urine pH Ur Specific [place] Urine Protein Urine Ketones Urine Blood Urine Nitrate Urine Bilirubin Urine Urobilinogen Ur Leukocyte Esterase Urine WBC (Auto) Urine RBC (Auto) Ur Squamous Epith Cells Urine Bacteria Hyaline Casts Granular Casts Urine Glucose 05/21/18 05/21/18 05/21/18 09:45 09:45 11:10 WBC RBC Hgb Hct MCV MCH MCHC RDW Plt Count MPV Neut % (Auto) Lymph % (Auto) Martin % (Auto) Eos % (Auto) Baso % (Auto) Absolute Neuts (auto) Absolute Lymphs (auto) Absolute Monos (auto) Absolute Eos (auto) Absolute Basos (auto) Absolute Nucleated RBC Nucleated RBC % INR (Anticoag Therapy) APTT Sodium Potassium Chloride Carbon Dioxide Anion Gap BUN Creatinine Est GFR ( Amer) Est GFR (Non-Af Amer) BUN/Creatinine Ratio Glucose Lactic Acid 1.3 Calcium Magnesium Total Bilirubin AST ALT Alkaline Phosphatase Ammonia 46 Troponin I C-Reactive Protein B-Natriuretic Peptide 34 Total Protein Albumin Globulin Albumin/Globulin Ratio Lipase Urine Color Isabel Urine Appearance Cloudy Urine pH 5.0 Ur Specific [place] 1.024 Urine Protein 1+(30 mg/dl) A Urine Ketones Trace A Urine Blood Negative Urine Nitrate Negative Urine Bilirubin Negative Urine Urobilinogen Negative Ur Leukocyte Esterase Negative Urine WBC (Auto) Trace(0-5/hpf) Urine RBC (Auto) 2+(6-10/hpf) A Ur Squamous Epith Cells Present A Urine Bacteria Absent Hyaline Casts Present A Granular Casts Present A Urine Glucose Negative 05/22/18 05/22/18 05:44 05:44 WBC 10.6 RBC 3.91 L Hgb 12.0 L Hct 35 L MCV 89 MCH 31 MCHC 34 RDW 14 Plt Count 176 MPV 9.2 Neut % (Auto) 90.8 Lymph % (Auto) 5.5 Martin % (Auto) 3.7 Eos % (Auto) 0 Baso % (Auto) 0 Absolute Neuts (auto) 9.6 H Absolute Lymphs (auto) 0.6 L Absolute Monos (auto) 0.4 Absolute Eos (auto) 0 Absolute Basos (auto) 0 Absolute Nucleated RBC 0 Nucleated RBC % 0 INR (Anticoag Therapy) APTT Sodium 134 L Potassium 4.3 Chloride 105 Carbon Dioxide 22 Anion Gap 7 BUN 18 Creatinine 0.90 Est GFR ( Amer) 100.4 Est GFR (Non-Af Amer) 82.9 BUN/Creatinine Ratio 20.0 Glucose 136 H Lactic Acid Calcium 8.3 L Magnesium Total Bilirubin AST ALT Alkaline Phosphatase Ammonia Troponin I C-Reactive Protein B-Natriuretic Peptide Total Protein Albumin Globulin Albumin/Globulin Ratio Lipase Urine Color Urine Appearance Urine pH Ur Specific [place] Urine Protein Urine Ketones Urine Blood Urine Nitrate Urine Bilirubin Urine Urobilinogen Ur Leukocyte Esterase Urine WBC (Auto) Urine RBC (Auto) Ur Squamous Epith Cells Urine Bacteria Hyaline Casts Granular Casts Urine Glucose Assessment: POD#1 s/p Rito procedure. Postop ileus. Parkinson's dz. Plan: Cont NGT until GI fct improves. Cont orellana for monitoring u/o. OOB, amb with assist. Cont abx. Hospitalist f/u.
[2018-05-22] MEDS ORDERED: Rivastigmine PATCH 4.6 MG(NF) PATCH TRANSDERM SCH (09:00)
--- NOTE | 2018-05-22 11:05 | PN ---
Subjective Date of Service: 05/22/18 Interval History: Mr. Zepeda is feeling poor this morning. He is not able to provide much subjective data d/t confusion, but his notes that he is frustrated due to the number of tubes and lines. He is anxious to have his orellana removed. He denies pain. Not using the AUTOMATIC LEHR OPERATOR. feels as though his tremors are increased from baseline d/t missing doses of sinemet and she is concerned about him missing further doses. She does note that he is slightly more confused than normal. He denies CP, SOB, nausea. Family History: Unchanged from Admission Social History: Unchanged from Admission Past Medical History: Unchanged from Admission Objective Active Medications: Carbidopa/Levodopa (Carbidopa/Levodopa Odt (Nf)) 0.5 tab PO 1500,1700 ROMEO Carbidopa/Levodopa (Carbidopa/Levodopa Odt (Nf)) 1 tab PO 0800 ROMEO Carbidopa/Levodopa (Carbidopa/Levodopa Odt (Nf)) 0.5 tab PO 1000,1200,1330 ROMEO Heparin Sodium (Porcine) (Heparin Vial(*)) 5,000 units SUBCUT Q8HR ROMEO Sodium Chloride (Ns 0.9% 1000 Ml*) 1,000 mls @ 100 mls/hr IV PER RATE ROMEO Piperacillin Sod/Tazobactam (Sod 3.375 gm/ Sodium Chloride) 100 mls @ 25 mls/ hr IVPB Q8H ROMEO Morphine Sulfate (Morphine Coding Clerks Supervisor Adult* 5 Mg/Ml) 30 mls @ 0 mls/hr AUTOMATIC LEHR OPERATOR .change Q24H ROMEO; Protocol Levothyroxine Sodium (Synthroid Inj*) 60 mcg IV 0600 ROMEO Naloxone HCl (Narcan*) 0.08 mg IV PUSH .Q2MIN PRN OVERSEDATION Vital Signs - 8 hr 05/22/18 05/22/18 05/22/18 03:20 03:49 04:07 Temperature 97.5 F Pulse Rate 70 Respiratory 20 18 Rate Blood Pressure 119/64 (mmHg) O2 Sat by Pulse 95 94 95 Oximetry 05/22/18 05/22/18 05/22/18 05:43 06:34 07:31 Temperature 97.8 F Pulse Rate 61 59 Respiratory 20 16 Rate Blood Pressure 114/59 (mmHg) O2 Sat by Pulse 95 96 97 Oximetry Oxygen Devices in Use Now: None Appearance: Elderly male laying in bed in NAD Eyes: No Scleral Icterus Ears/Nose/Mouth/Throat: Mucous Membranes Moist Neck: NL Appearance and Movements; NL JVP, Trachea Midline Respiratory: Symmetrical Chest Expansion and Respiratory Effort, Clear to Auscultation Cardiovascular: NL Sounds; No Murmurs; No JVD, RRR Abdominal: - - Soft, tender throughout Extremities: No Edema Skin: No Rash or Ulcers Neurological: - - Oriented to self and place Lines/Tubes/Other Access: Clean, Dry and Intact Peripheral IV Result Diagrams: 05/22/18 05:44 05/22/18 05:44 Assess/Plan/Problems-Billing Assessment: Mr. Zepeda is a 73 yo M with PMH of Parkinsons, BPH, and hypothyroidism; who presented to the ED with c/o abd pain and was found to have free air on CT; subsequently taken to the OR and was found to have perforated diverticulitis, now s/p sigmoid colectomy and end colostomy. Hospital medicine consulting for co -medical management. - Patient Problems (1) Perforated diverticulum Code(s): K57.80 - DVTRCLI OF INTEST, PART UNSP, W PERF AND ABSCESS W/O BLEED Comment: - Free air noted on abd CT - POD #1 sigmoid colectomy, end colostomy, and Rito pouch - Management per surgery (2) Parkinson disease Code(s): G20 - PARKINSON'S DISEASE Comment: - Tremors increased off sinemet - Hold selegiline and amantadine while NPO - Spoke with pharmacy and they were able to secure sinemet ODT; plan to give per home schedule (3) Dementia associated with Parkinson's disease Code(s): G20 - PARKINSON'S DISEASE; F02.80 - DEMENTIA IN OTH DISEASES CLASSD ELSWHR W/O BEHAVRL DISTURB Comment: - Hold Namenda and Aricept while NPO (4) BPH (benign prostatic hyperplasia) Code(s): N40.0 - BENIGN PROSTATIC HYPERPLASIA WITHOUT LOWER URINRY TRACT SYMP Comment: - Orellana currently in place - Hold tamsulosin while NPO (5) Hypothyroidism Code(s): E03.9 - HYPOTHYROIDISM, UNSPECIFIED Comment: - Continue levothyroxine IV; will resume PO once cleared by surgery (6) Full code status Code(s): Z78.9 - OTHER SPECIFIED HEALTH STATUS (7) DVT prophylaxis Code(s): OJQ9791 - Comment: - Heparin SQ Status and Disposition: Inpatient. Dispo per surgery. Thank you for this consultation. We will continue to follow distantly. Please call with any questions or concerns. Attending: Ange Conner
[2018-05-22] MEDS: LEVODOPA PO SCH ×4 (11:57→17:00)
[2018-05-22] MEDS: CARBIDOPA PO SCH ×4 (11:57→17:00)
[2018-05-23] MEDS: Piperacillin/Tazobactam VIAL*) 3.375 GM in NS 0.9% 100 ML* 100 ML IVPB SCH ×3 (05:57→21:55)
[2018-05-23] MEDS: Levothyroxine INJ* 100 MCG/5 ML VIAL IV SCH (05:59)
[2018-05-23] MEDS: Heparin VIAL(*) 5000 UNITS/ML VIAL (FIVE THOUSAND) SUBCUT SCH ×3 (06:02→21:55)
[2018-05-23] MEDS: CARBIDOPA PO SCH ×7 (08:25→17:09)
[2018-05-23] MEDS: LEVODOPA PO SCH ×7 (08:25→17:09)
[2018-05-23] MEDS: NS 0.9% 1000 ML* 1,000 ML IV SCH ×2 (08:51→18:58)
--- NOTE | 2018-05-23 09:58 | PN ---
Progress Note - Progress Note Date of Service: 05/23/18 SOAP: Subjective: says he is more alert this morning Was OOB yesterday Pain controlled with MANAGER OF EXHIBITIONS AND COLLECTIONS Want NGT out Objective: Temp Pulse Resp BP Pulse Ox 98.5 F 69 16 135/72 94 05/23/18 08:36 05/23/18 07:37 05/23/18 07:37 05/23/18 07:37 05/23/18 07:37 Intake & Output 05/21/18 05/22/18 05/23/18 05/24/18 06:59 06:59 06:59 06:59 Intake Total 4152 2363 Output Total 2455 2800 Balance 1697 -437 Weight 180 lb Intake: IV Fluids 4152 2013 ABX - ZOSYN 110 105 LR 1850 NS (0.9%) 1042 1908 NS 100ML, Zosyn 3.375G 100 NS 50ML, Cefazolin 2G 50 IVPB 100 ABX - ZOSYN 100 Oral 0 0 NG Tube Irrigate Amount 250 Output: NG Tube Drainage Amount 155 950 Orellana 2300 1850 Colostomy 0 0 Other: # Bowel Movements 0 PEX: Comfortable Lungs are clear, decreased breath sounds at bases Abd is soft and non=distended. Incision is clean and packed. Minimal bowel sounds. Ostomy is pink and edematous, no output. Ext without edema No labs Assessment: POD#2 s/p emergent ex lap sigmoid resection with colostomy for perforated diverticula Parkinsons's disease Decreased NGT output, Plan: D/C orellana and NGT Increase activity MANAGER OF EXHIBITIONS AND COLLECTIONS Ice chips and sips of water IV abx
[2018-05-24] MEDS: NS 0.9% 1000 ML* 1,000 ML IV SCH (04:12)
[2018-05-24] MEDS: Piperacillin/Tazobactam VIAL*) 3.375 GM in NS 0.9% 100 ML* 100 ML IVPB SCH ×3 (05:56→21:39)
[2018-05-24] MEDS: Levothyroxine INJ* 100 MCG/5 ML VIAL IV SCH (06:03)
[2018-05-24] MEDS: Heparin VIAL(*) 5000 UNITS/ML VIAL (FIVE THOUSAND) SUBCUT SCH ×3 (06:52→21:39)
[2018-05-24] MEDS: LEVODOPA PO SCH ×6 (08:05→17:44)
[2018-05-24] MEDS: CARBIDOPA PO SCH ×6 (08:05→17:44)
--- NOTE | 2018-05-24 08:34 | PN ---
Progress Note - Progress Note Date of Service: 05/24/18 SOAP: Subjective: Some confusion. No N/V. Ostomy fcting per RN. Objective: Vital Signs Temp 98.5 F 05/24/18 04:59 Pulse 85 05/24/18 04:59 Resp 20 05/24/18 06:42 BP 147/71 05/24/18 04:59 Pulse Ox 97 05/24/18 06:42 Gen: NAD Abd: incision c/d/i; no erythema; packing changed; distended, soft; ostomy pink with +gas. Intake & Output 05/23/18 05/24/18 05/24/18 18:59 06:59 18:59 Intake Total 1001 1830 Output Total 645 775 Balance 356 1055 Intake: IV Fluids 906 1605 ABX - ZOSYN 215 NS (0.9%) 906 1390 Oral 95 225 Output: NG Tube Drainage Amount 20 Urine 120 775 [place] 500 Liquid Stool 5 Other: # Bowel Movements 0 Active Medications Generic Name Dose Route Start Last Admin Trade Name Freq PRN Reason Stop Dose Admin Carbidopa/Levodopa 0.5 tab 05/22/18 15:00 05/23/18 17:09 Carbidopa/Levodopa Odt (Nf) PO 0.5 tab 1500,1700 ROMEO Administration Carbidopa/Levodopa 1 tab 05/23/18 08:00 05/24/18 08:05 Carbidopa/Levodopa Odt (Nf) PO 1 tab 0800 ROMEO Administration Carbidopa/Levodopa 0.5 tab 05/22/18 12:00 05/23/18 14:01 Carbidopa/Levodopa Odt (Nf) PO Not Given 1000,1200,1330 ROMEO Heparin Sodium (Porcine) 5,000 units 05/22/18 08:00 05/24/18 06:52 Heparin Vial(*) SUBCUT Not Given Q8HR ROMEO Sodium Chloride 1,000 mls @ 100 mls/hr 05/21/18 16:15 05/24/18 04:12 Ns 0.9% 1000 Ml* IV 100 mls/hr PER RATE ROMEO Administration Piperacillin Sod/Tazobactam 100 mls @ 25 mls/hr 05/21/18 22:00 05/24/18 05:56 Sod 3.375 gm/ Sodium Chloride IVPB 25 mls/hr Q8H ROMEO Administration Morphine Sulfate 30 mls @ 0 mls/hr 05/21/18 17:00 05/21/18 17:50 Morphine Geriatric Care Manager Adult* 5 Mg/Ml PLACEMENT SPECIALIST 0.1 mls/hr .change Q24H ROMEO Administration Protocol Per Protocol Levothyroxine Sodium 60 mcg 05/22/18 06:00 05/24/18 06:03 Synthroid Inj* IV 60 mcg 0600 ROMEO Administration Naloxone HCl 0.08 mg 05/21/18 16:26 Narcan* IV PUSH .Q2MIN PRN OVERSEDATION Assessment: POD#3 s/p Rito Plan: Advance diet. Transition to po meds. Ostomy teaching. Incr activity.
[2018-05-24] MEDS ORDERED: Ibuprofen TAB* 600 MG PO PRN (09:07)
[2018-05-24] MEDS: Ibuprofen ADULT LIQ* 600 MG/30 ML UDC PO PRN (10:15)
[2018-05-24] MEDS ORDERED: Ondansetron INJ* 2 MG/ML VIAL IV PRN (11:00)
[2018-05-24] MEDS: oxyCODONE/Acetamin 5/325 MG* TAB PO PRN (11:17)
--- NOTE | 2018-05-24 11:29 | PN ---
Subjective Date of Service: 05/24/18 Interval History: Mr. Zepeda is feeling "so-so" this morning. He is not able to provide much more information. His is at the bedside and notes that he is more confused than usual and has periods of agitation which she believe is r/t fear. She feels as though he is in pain this morning and is tired as he has been up since 0500. She reports that he has been tolerating Pepsi and popsicles. Feels as though the Sinemet ODT is working well. Family History: Unchanged from Admission Social History: Unchanged from Admission Past Medical History: Unchanged from Admission Objective Active Medications: Acetaminophen (Tylenol Tab*) 650 mg PO Q4H PRN FEVER/PAIN Carbidopa/Levodopa (Carbidopa/Levodopa Odt (Nf)) 0.5 tab PO 1500,1700 [place] Carbidopa/Levodopa (Carbidopa/Levodopa Odt (Nf)) 1 tab PO 0800 ROMEO Carbidopa/Levodopa (Carbidopa/Levodopa Odt (Nf)) 0.5 tab PO 1000,1200,1330 ROMEO Heparin Sodium (Porcine) (Heparin Vial(*)) 5,000 units SUBCUT Q8HR ROMEO Piperacillin Sod/Tazobactam (Sod 3.375 gm/ Sodium Chloride) 100 mls @ 25 mls/ hr IVPB Q8H ROMEO Ibuprofen (Motrin Liq Adult*) 600 mg PO Q6H PRN PAIN Levothyroxine Sodium (Synthroid Inj*) 60 mcg IV 0600 ROMEO Ondansetron HCl (Zofran Inj*) 4 mg IV Q6H PRN NAUSEA Oxycodone/Acetaminophen (Percocet 5/325 Tab*) 1 tab PO Q4H PRN PAIN Vital Signs - 8 hr 05/24/18 05/24/18 05/24/18 04:00 04:59 06:00 Temperature 98.5 F Pulse Rate 85 Respiratory 20 18 20 Rate Blood Pressure 147/71 (mmHg) O2 Sat by Pulse 95 95 97 Oximetry 05/24/18 05/24/18 05/24/18 06:42 07:49 08:00 Temperature 98.5 F Pulse Rate 62 Respiratory 20 16 16 Rate Blood Pressure 135/68 (mmHg) O2 Sat by Pulse 97 97 96 Oximetry Oxygen Devices in Use Now: None Appearance: Elderly male sitting in chair in NAD Eyes: No Scleral Icterus Ears/Nose/Mouth/Throat: Mucous Membranes Moist Neck: NL Appearance and Movements; NL JVP, Trachea Midline Respiratory: Symmetrical Chest Expansion and Respiratory Effort, Clear to Auscultation Cardiovascular: NL Sounds; No Murmurs; No JVD, RRR Abdominal: - - Slightly distended, tender throughout Extremities: No Edema Skin: No Rash or Ulcers Neurological: - - Oriented to self and place Lines/Tubes/Other Access: Clean, Dry and Intact Peripheral IV Nutrition: Taking PO's Result Diagrams: 05/22/18 05:44 05/22/18 05:44 Assess/Plan/Problems-Billing Assessment: Mr. Zepeda is a 73 yo M with PMH of Parkinsons, BPH, and hypothyroidism; who presented to the ED with c/o abd pain and was found to have free air on CT; subsequently taken to the OR and was found to have perforated diverticulitis, now s/p sigmoid colectomy and end colostomy. Hospital medicine consulting for co -medical management. - Patient Problems (1) Perforated diverticulum Code(s): K57.80 - DVTRCLI OF INTEST, PART UNSP, W PERF AND ABSCESS W/O BLEED Comment: - Free air noted on abd CT - POD #3 sigmoid colectomy, end colostomy, and Rito pouch - Peritoneal fluid culture growing E. coli, Pseudomonas aeruginosa, Bacteroides vulgatus - Management per Surgery (2) Parkinson disease Code(s): G20 - PARKINSON'S DISEASE Comment: - Tremors resolved with Sinemet ODT - Continue Sinemet ODT - Will restart selegiline and amatadine as he is now tolerating clears (3) Dementia associated with Parkinson's disease Code(s): G20 - PARKINSON'S DISEASE; F02.80 - DEMENTIA IN OTH DISEASES CLASSD ELSWHR W/O BEHAVRL DISTURB Comment: - Hold Namenda and Aricept (4) BPH (benign prostatic hyperplasia) Code(s): N40.0 - BENIGN PROSTATIC HYPERPLASIA WITHOUT LOWER URINRY TRACT SYMP Comment: - Hold tamsulosin (5) Hypothyroidism Code(s): E03.9 - HYPOTHYROIDISM, UNSPECIFIED Comment: - Continue levothyroxine; change to PO (6) DVT prophylaxis Code(s): OBF4994 - Comment: - Heparin SQ per Surgery (7) Full code status Code(s): Z78.9 - OTHER SPECIFIED HEALTH STATUS Status and Disposition: Inpatient. Dispo per surgery. Thank you for this consultation. We will continue to follow distantly. Please call with any questions or concerns. Attending: Ange Conner
[2018-05-24] MEDS: Amantadine CAP* 100 MG PO SCH (12:48)
[2018-05-24] MEDS: Selegiline TAB* 5 MG PO SCH (12:50)
[2018-05-24 20:45] LABS: BUN/Creatinine Ratio 15.3 (8-20); Calcium 8.6 mg/dL (8.6-10.3); EGFR African American 129.8 (>60); EGFR Non-African American 107.3 (>60); Potassium 3.4 mmol/L (3.5-5.0)
[2018-05-24] MEDS: Tamsulosin CAP* 0.4 MG PO SCH (21:38)
[2018-05-25] MEDS: oxyCODONE/Acetamin 5/325 MG* TAB PO PRN (02:30)
[2018-05-25] MEDS: Levothyroxine TAB* 125 MCG TAB PO SCH (05:48)
[2018-05-25] MEDS: Heparin VIAL(*) 5000 UNITS/ML VIAL (FIVE THOUSAND) SUBCUT SCH ×4 (05:49→23:22)
[2018-05-25] MEDS: Piperacillin/Tazobactam VIAL*) 3.375 GM in NS 0.9% 100 ML* 100 ML IVPB SCH ×3 (05:51→23:15)
[2018-05-25] MEDS: LEVODOPA PO SCH ×6 (09:14→16:46)
[2018-05-25] MEDS: CARBIDOPA PO SCH ×6 (09:14→16:46)
[2018-05-25] MEDS: Amantadine CAP* 100 MG PO SCH ×2 (09:14→12:12)
[2018-05-25] MEDS: Selegiline TAB* 5 MG PO SCH ×2 (09:14→12:12)
--- NOTE | 2018-05-25 09:27 | PN ---
Progress Note - Progress Note Date of Service: 05/25/18 Note: POD#4 S/P Rito's Afeb, VS noted No apparent pain UO OK Minimal ostomy output Per , more confused than usual Abd Sore, still distended, mild tympany, stoma w/ mild edema, few BS Incis re-dressed--clean Impr: S/P Hatmann's Cont Abx Await GI fxn Med issues per hospitalist
--- NOTE | 2018-05-25 11:49 | PN ---
Subjective Date of Service: 05/25/18 Interval History: Discussed case with Dr. Lopez this morning, per patient's , he seems to be more confused. Upon evaluation, he does appear to be confused but can answer questions appropriately. Denies chest pain, no SOB, has some RLQ pain, denies n/ v. Family History: Unchanged from Admission Social History: Unchanged from Admission Past Medical History: Unchanged from Admission Objective Active Medications: Acetaminophen (Tylenol Tab*) 650 mg PO Q4H PRN PRN Reason: FEVER/PAIN Amantadine HCl (Symmetrel Cap*) 100 mg PO 0800,1200 [facility] Last Admin: 05/25/18 09:14 Dose: Not Given Carbidopa/Levodopa (Carbidopa/Levodopa Odt (Nf)) 0.5 tab PO 1500,1700 ROMEO Last Admin: 05/24/18 17:44 Dose: 0.5 tab Carbidopa/Levodopa (Carbidopa/Levodopa Odt (Nf)) 1 tab PO 0800 ROMEO Last Admin: 05/25/18 09:14 Dose: Not Given Carbidopa/Levodopa (Carbidopa/Levodopa Odt (Nf)) 0.5 tab PO 1000,1200,1330 ROMEO Last Admin: 05/25/18 10:44 Dose: 0.5 tab Heparin Sodium (Porcine) (Heparin Vial(*)) 5,000 units SUBCUT Q8HR [facility] Last Admin: 05/25/18 05:49 Dose: Not Given Piperacillin Sod/Tazobactam (Sod 3.375 gm/ Sodium Chloride) 100 mls @ 25 mls/ hr IVPB Q8H [facility] Last Admin: 05/25/18 05:51 Dose: 25 mls/hr Ibuprofen (Motrin Liq Adult*) 600 mg PO Q6H PRN PRN Reason: PAIN Last Admin: 05/24/18 10:15 Dose: 600 mg Levothyroxine Sodium (Synthroid Tab*) 125 mcg PO 0600 ROMEO Last Admin: 05/25/18 05:48 Dose: 125 mcg Ondansetron HCl (Zofran Inj*) 4 mg IV Q6H PRN PRN Reason: NAUSEA Oxycodone/Acetaminophen (Percocet 5/325 Tab*) 1 tab PO Q4H PRN PRN Reason: PAIN Last Admin: 05/25/18 02:30 Dose: 1 tab Selegiline HCl (Eldepryl Tab*) 5 mg PO 0800,1200 [facility] Last Admin: 05/25/18 09:14 Dose: Not Given Tamsulosin HCl (Flomax Cap*) 0.4 mg PO BEDTIME [facility] Last Admin: 05/24/18 21:38 Dose: 0.4 mg Vital Signs - 8 hr 05/25/18 05/25/18 05/25/18 04:02 04:24 07:28 Temperature 98.4 F 98.9 F Pulse Rate 77 61 Respiratory 18 18 16 Rate Blood Pressure 150/78 138/71 (mmHg) O2 Sat by Pulse 98 98 Oximetry 05/25/18 08:00 Temperature Pulse Rate Respiratory 18 Rate Blood Pressure (mmHg) O2 Sat by Pulse Oximetry Oxygen Devices in Use Now: None Appearance: alert, NAD Eyes: No Scleral Icterus, PERRLA Ears/Nose/Mouth/Throat: NL Teeth, Lips, Gums, Mucous Membranes Moist Neck: NL Appearance and Movements; NL JVP, Trachea Midline Respiratory: Symmetrical Chest Expansion and Respiratory Effort, Clear to Auscultation Cardiovascular: NL Sounds; No Murmurs; No JVD, RRR, No Edema Abdominal: NL Sounds; No Tenderness; No Distention, No Hepatosplenomegaly, - - dressings CDI, stoma draining stool, site clean Extremities: No Edema, No Clubbing, Cyanosis Skin: No Rash or Ulcers Neurological: - - alert, confused Nutrition: Taking PO's Result Diagrams: 05/22/18 05:44 05/24/18 20:20 Microbiology and Other Data: Microbiology 05/21/18 14:00 Skin and Soft Tissue MRSA/MSSA (PCR - Final Misc Source (See Comment) Mrsa Negative S.aureus Negative Gram Stain - Final Wound Culture - Preliminary Escherichia Coli Pseudomonas Aeruginosa 05/21/18 14:00 Anaerobic Culture - Preliminary Body Fluid - Peritoneal Bacteroides Vulgatus 05/21/18 11:10 Urine Culture - Final Urine No Growth (<1,000 CFU/mL) Assess/Plan/Problems-Billing Assessment: This is a 73 yo M with PMH of Parkinsons, BPH, and hypothyroidism; who presented to the ED with c/o abd pain and was found to have free air on CT; subsequently taken to the OR and was found to have perforated diverticulitis, now s/p sigmoid colectomy and end colostomy. Hospital medicine consulting for co -medical management. - Patient Problems (1) Perforated diverticulum Code(s): K57.80 - DVTRCLI OF INTEST, PART UNSP, W PERF AND ABSCESS W/O BLEED SNOMED Code(s): 68955286 Comment: - Free air noted on abd CT - POD4 sigmoid colectomy, end colostomy, and Rito pouch - Peritoneal fluid culture growing E. coli, Pseudomonas aeruginosa, Bacteroides vulgatus, continue empiric Zosyn - POC as per Surgery (2) BPH (benign prostatic hyperplasia) Code(s): N40.0 - BENIGN PROSTATIC HYPERPLASIA WITHOUT LOWER URINRY TRACT SYMP SNOMED Code(s): 963264305 Comment: - Restart flomax (3) Dementia associated with Parkinson's disease Code(s): G20 - PARKINSON'S DISEASE; F02.80 - DEMENTIA IN OTH DISEASES CLASSD ELSWHR W/O BEHAVRL DISTURB SNOMED Code(s): 049782688 Comment: - Remains confused, this is likely a toxic metabolic encephalopthy 2/2 existing Parkinson's dementia, post-operative delerium and medications - Tremors resolved with Sinemet ODT - Continue selegiline and amatadine - Restart donepezil tonight (4) Hypothyroidism Code(s): E03.9 - HYPOTHYROIDISM, UNSPECIFIED SNOMED Code(s): 43338476 Comment: - Continue levothyroxine daily (5) DVT prophylaxis Current Visit: Yes Status: Acute Code(s): OTT3413 - SNOMED Code(s): 876405022 Comment: - Heparin SQ per Surgery (6) Full code status Current Visit: Yes Status: Acute Code(s): Z78.9 - OTHER SPECIFIED HEALTH STATUS SNOMED Code(s): 429985030 Status and Disposition: Inpatient. Dispo per surgery. Thank you for this consultation. We will continue to follow distantly. Please call with any questions or concerns.
[2018-05-25] MEDS: Tamsulosin CAP* 0.4 MG PO SCH ×3 (20:28→23:27)
[2018-05-25] MEDS: Donepezil TAB* 5 MG PO SCH ×2 (20:28→22:55)
[2018-05-25] MEDS: Acetaminophen TAB* 325 MG PO PRN (22:51)
[2018-05-26] MEDS: Piperacillin/Tazobactam VIAL*) 3.375 GM in NS 0.9% 100 ML* 100 ML IVPB SCH ×3 (05:34→21:28)
[2018-05-26] MEDS: Heparin VIAL(*) 5000 UNITS/ML VIAL (FIVE THOUSAND) SUBCUT SCH ×3 (05:39→21:28)
[2018-05-26] MEDS: Levothyroxine TAB* 125 MCG TAB PO SCH (05:42)
[2018-05-26] MEDS: Acetaminophen TAB* 325 MG PO PRN (05:47)
[2018-05-26] MEDS: Selegiline TAB* 5 MG PO SCH ×5 (08:21→10:30)
[2018-05-26] MEDS: LEVODOPA PO SCH ×5 (08:21→15:22)
[2018-05-26] MEDS: Amantadine CAP* 100 MG PO SCH ×5 (08:21→10:30)
[2018-05-26] MEDS: CARBIDOPA PO SCH ×5 (08:21→15:22)
[2018-05-26] MEDS: Ibuprofen ADULT LIQ* 600 MG/30 ML UDC PO PRN (10:18)
--- NOTE | 2018-05-26 10:19 | PN ---
Progress Note - Progress Note Date of Service: 05/26/18 SOAP: Subjective:pod#5 s/p Rito's for perf'd divertic [] reports increased confusion,refusing pills,refusing to eat;patient opens eyes,speech is not clear;shakes head no when asked if in pain Objective:afeb;VSS;lungs:clear bilat anteriorly;heart:RRR,no murmur or rub;abd: hypoactive bs,mild distention,midline incision c/d/i with lili,no infection,1 /4" lisa replaced in between lili;ostomy with liquid brown stool and gas in bag;soft,appropriate mild tenderness;ext:nontender calves [] Assessment:pt with Parkinson's with worsening confusion and tremors;refusing meds and food [] Plan:check P3 I spoke with pt neurologist Dr Yeager and he advised a neuro consult today with Dr Matson,I spoke with Dr Matson and she will see the patient today Dr Amaro updated(he is station air traffic control specialist 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
[2018-05-26 10:45] LABS: BUN/Creatinine Ratio 18.6 (8-20); Calcium 8.5 mg/dL (8.6-10.3); EGFR African American 134.1 (>60); EGFR Non-African American 110.9 (>60); Potassium 3.5 mmol/L (3.5-5.0)
--- NOTE | 2018-05-26 13:57 | CONSULT ---
Consult Consult: NEUROLOGY CONSULTATION Patient seen and examined 05/26/2018 at 1pm CC: Altered Mental Status HPI: This is a 73 yr old man with history of Parkinsons Disease diagnosed 12 yrs ago being managed by Dr. Yeager who presented to the hospital on 05/21/2018 with complaints of abdominal pain. He is S/P Diagnostic laparoscopy, laparotomy , sigmoid colectomy, end colostomy, and Rito pouch perfomed on 05/21/2018. He has missed doses of his Parkinsons medications since the . His notes that he appears confused, perseverating with stifness and tremor. At baseline he is very functional and still goes to work. At home he does not use any assistive devices for mobility but uses a came when outside of the home. He has not had any recent parkinsons medication changes. Review of Systems: unreliable due to patient condition PAST MEDICAL HISTORY: 1. Parkinson's. 2. Chronic back pain. 3. Hypothyroidism. 4. BPH. PAST SURGICAL HISTORY: 1. Hernia repair. 2. Back surgery. 3. Left ankle ORIF. 4. Appendectomy in 1963. 5. Laminectomy in 2007. Allergies No Known Allergies Allergy (Verified 02/09/18 13:53) Meds Acetaminophen (Tylenol Tab*) 650 mg PO Q4H PRN PRN Reason: FEVER/PAIN Last Admin: 05/26/18 05:47 Dose: 325 mg Amantadine HCl (Symmetrel Cap*) 100 mg PO BID@0800,1200 [facility] Last Admin: 05/26/18 10:30 Dose: Not Given Carbidopa/Levodopa (Carbidopa/Levodopa Odt (Nf)) 0.5 tab PO 1500,1700 [facility] Last Admin: 05/25/18 16:46 Dose: Not Given Carbidopa/Levodopa (Carbidopa/Levodopa Odt (Nf)) 1 tab PO 0800 [facility] Last Admin: 05/26/18 08:21 Dose: Not Given Carbidopa/Levodopa (Carbidopa/Levodopa Odt (Nf)) 0.5 tab PO 1000,1200,1330 [facility] Last Admin: 05/26/18 12:02 Dose: 0.5 tab Donepezil HCl (Aricept Tab*) 10 mg PO BEDTIME [facility] Last Admin: 05/25/18 22:55 Dose: 10 mg Heparin Sodium (Porcine) (Heparin Vial(*)) 5,000 units SUBCUT Q8HR [facility] Last Admin: 05/26/18 05:39 Dose: 5,000 units Piperacillin Sod/Tazobactam (Sod 3.375 gm/ Sodium Chloride) 100 mls @ 25 mls/ hr IVPB Q8H [facility] Last Admin: 05/26/18 05:34 Dose: 25 mls/hr Ibuprofen (Motrin Liq Adult*) 600 mg PO Q6H PRN PRN Reason: PAIN Last Admin: 05/24/18 10:15 Dose: 600 mg Levothyroxine Sodium (Synthroid Tab*) 125 mcg PO 0600 [facility] Last Admin: 05/26/18 05:42 Dose: 125 mcg Ondansetron HCl (Zofran Inj*) 4 mg IV Q6H PRN PRN Reason: NAUSEA Last Admin: 05/25/18 23:02 Dose: 4 mg Oxycodone/Acetaminophen (Percocet 5/325 Tab*) 1 tab PO Q4H PRN PRN Reason: PAIN Last Admin: 05/25/18 02:30 Dose: 1 tab Selegiline HCl (Eldepryl Tab*) 5 mg PO BID@0800,1200 [facility] Last Admin: 05/26/18 10:30 Dose: Not Given Tamsulosin HCl (Flomax Cap*) 0.4 mg PO BEDTIME [facility] Last Admin: 05/25/18 23:27 Dose: Not Given Vital Signs Temp 98.6 F 05/26/18 06:24 Pulse 66 05/26/18 06:24 Resp 18 05/26/18 08:00 BP 143/73 05/26/18 06:24 Pulse Ox 97 05/26/18 06:24 Intake & Output 05/25/18 05/26/18 05/26/18 18:59 06:59 18:59 Intake Total 140 829 100 Output Total 375 730 400 Balance -235 99 -300 Intake: IV Fluids 80 405 NS (0.9%) 80 405 IVPB 324 ABX - ZOSYN 324 Oral 60 100 100 Output: Urine 350 450 200 Colostomy 25 280 200 Other: Estimated Void Medium Exam: General: NAD, NCAT CVS/Resp: regular rate, breathing comfortably Mental Status: alert, oriented to self only, able to name and repeat CN: PERRLA, EOMI, face symmetrical, tongue midline Motor: increased tone in the arms and legs with rest tremor right arm > left Sensory: grossly intact LT in arms, legs, and trunk Coord/ Gait: intact FTN Laboratory: Laboratory Results WBC 10.6 10^3/ul (3.5-10.8) 05/22/18 05:44 RBC 3.91 10^6/ul (4.00-5.40) L 05/22/18 05:44 Hgb 12.0 g/dl (14.0-18.0) L 05/22/18 05:44 Hct 35 % (42-52) L 05/22/18 05:44 MCV 89 fL (80-94) 05/22/18 05:44 MCH 31 pg (27-31) 05/22/18 05:44 MCHC 34 g/dl (31-36) 05/22/18 05:44 RDW 14 % (10.5-15) 05/22/18 05:44 Plt Count 176 10^3/ul (150-450) 05/22/18 05:44 MPV 9.2 fL (7.4-10.4) 05/22/18 05:44 Neut % (Auto) 90.8 % 05/22/18 05:44 Lymph % (Auto) 5.5 % 05/22/18 05:44 [place] % (Auto) 3.7 % 05/22/18 05:44 Eos % (Auto) 0 % 05/22/18 05:44 Baso % (Auto) 0 % 05/22/18 05:44 Absolute Neuts (auto) 9.6 10^3/ul (1.5-7.7) H 05/22/18 05:44 Absolute Lymphs (auto) 0.6 10^3/ul (1.0-4.8) L 05/22/18 05:44 Absolute Monos (auto) 0.4 10^3/ul (0-0.8) 05/22/18 05:44 Absolute Eos (auto) 0 10^3/ul (0-0.6) 05/22/18 05:44 Absolute Basos (auto) 0 10^3/ul (0-0.2) 05/22/18 05:44 Absolute Nucleated RBC 0 10^3/ul 05/22/18 05:44 Nucleated RBC % 0 05/22/18 05:44 INR (Anticoag Therapy) 1.21 (0.77-1.02) H 05/21/18 09:45 APTT 29.4 seconds (26.0-36.3) 05/21/18 09:45 Sodium 141 mmol/L (135-145) 05/26/18 10:04 Potassium 3.5 mmol/L (3.5-5.0) 05/26/18 10:04 Chloride 106 mmol/L (101-111) 05/26/18 10:04 Carbon Dioxide 23 mmol/L (22-32) 05/26/18 10:04 Anion Gap 12 mmol/L (2-11) H 05/26/18 10:04 BUN 13 mg/dL (6-24) 05/26/18 10:04 Creatinine 0.70 mg/dL (0.67-1.17) 05/26/18 10:04 Est GFR ( Amer) 134.1 (>60) 05/26/18 10:04 Est GFR (Non-Af Amer) 110.9 (>60) 05/26/18 10:04 BUN/Creatinine Ratio 18.6 (8-20) 05/26/18 10:04 Glucose 135 mg/dL (70-100) H 05/26/18 10:04 Lactic Acid 1.3 mmol/L (0.5-2.0) 05/21/18 09:45 Calcium 8.5 mg/dL (8.6-10.3) L 05/26/18 10:04 Magnesium 2.0 mg/dL (1.9-2.7) 05/21/18 09:45 Total Bilirubin 1.30 mg/dL (0.2-1.0) H 05/21/18 09:45 AST TNP 05/21/18 09:45 ALT 12 U/L (7-52) 05/21/18 09:45 Alkaline Phosphatase 100 U/L (34-104) 05/21/18 09:45 Ammonia 46 mcmol/L (16-53) 05/21/18 09:45 Troponin I 0.02 ng/mL (<0.04) 05/21/18 09:45 C-Reactive Protein 244.86 mg/L (<8.01) H 05/21/18 09:45 B-Natriuretic Peptide 34 pg/mL (<=100) 05/21/18 09:45 Total Protein 7.3 g/dL (6.4-8.9) 05/21/18 09:45 Albumin 4.3 g/dL (3.2-5.2) 05/21/18 09:45 Globulin 3.0 g/dL (2-4) 05/21/18 09:45 Albumin/Globulin Ratio 1.4 (1-3) 05/21/18 09:45 Lipase 14 U/L (11.0-82.0) 05/21/18 09:45 Urine Color Isabel 05/21/18 11:10 Urine Appearance Cloudy 05/21/18 11:10 Urine pH 5.0 (5-9) 05/21/18 11:10 Ur Specific [place] 1.024 (1.010-1.030) 05/21/18 11:10 Urine Protein 1+(30 mg/dl) (Negative) A 05/21/18 11:10 Urine Ketones Trace (Negative) A 05/21/18 11:10 Urine Blood Negative (Negative) 05/21/18 11:10 Urine Nitrate Negative (Negative) 05/21/18 11:10 Urine Bilirubin Negative (Negative) 05/21/18 11:10 Urine Urobilinogen Negative (Negative) 05/21/18 11:10 Ur Leukocyte Esterase Negative (Negative) 05/21/18 11:10 Urine WBC (Auto) Trace(0-5/hpf) (Absent) 05/21/18 11:10 Urine RBC (Auto) 2+(6-10/hpf) (Absent) A 05/21/18 11:10 Ur Squamous Epith Cells Present (Absent) A 05/21/18 11:10 Urine Bacteria Absent (Absent) 05/21/18 11:10 Hyaline Casts Present (Absent) A 05/21/18 11:10 Granular Casts Present (Absent) A 05/21/18 11:10 Urine Glucose Negative (Negative) 05/21/18 11:10 Assessment: 73 yr old man with Parkinsons Disease with missed doses of medications and recent surgery. Patient with off- phenomenon due to missed medications as well as poor absorption . Likely with some hospital acquired delirium as well due to UTI and recent surgery. Recommendations: Discussed with the need to resume Parkinsons Medication. She is agreable to an NG tube. Perhaps a smaller caliber tube may be more comfortable. Simplify sinemet regimen while in the hospital to Sinemet 25/100, 1 tab TID. Resume home dosing on discharge. Continue Amantadine 100 BID Continue Selegiline 5mg BID Continue Donepezil 10 at bedtime F/U with Dr. Yeager upon discharge Thank you for including me in the care of this patient. Case discussed with treatment team. As per protocol, I discussed available results of testing and plan of care with the patient or advocate, who agrees to the plan. Face time for evaluation, education, counseling was >50% of time spent on unit: for 35 minutes.
[2018-05-26] MEDS ORDERED: LORazepam INJ* 2 MG/ML 1 ML VIAL IV PUSH ONE (16:07)
[2018-05-26] MEDS ORDERED: LORazepam INJ* 2 MG/ML 1 ML VIAL ONE (16:08)
--- NOTE | 2018-05-26 16:12 | PN ---
Subjective Date of Service: 05/26/18 Interval History: Patient seen and examined. Combative overnight, refusing meds and refusing food. Neurology consult placed. Unable to obtain ROS 2/2 agitation and confusion. Family History: Unchanged from Admission Social History: Unchanged from Admission Past Medical History: Unchanged from Admission Objective Active Medications: Acetaminophen (Tylenol Tab*) 650 mg PO Q4H PRN PRN Reason: FEVER/PAIN Last Admin: 05/26/18 05:47 Dose: 325 mg Amantadine HCl (Symmetrel Cap*) 100 mg PO BID@0800,1200 [facility] Last Admin: 05/26/18 10:30 Dose: Not Given Carbidopa/Levodopa (Carbidopa/Levodopa Odt (Nf)) 0.5 tab PO 1500,1700 [facility] Last Admin: 05/26/18 15:22 Dose: 0.5 tab Carbidopa/Levodopa (Carbidopa/Levodopa Odt (Nf)) 1 tab PO 0800 [facility] Last Admin: 05/26/18 08:21 Dose: Not Given Carbidopa/Levodopa (Carbidopa/Levodopa Odt (Nf)) 0.5 tab PO 1000,1200,1330 [facility] Last Admin: 05/26/18 14:29 Dose: 0.5 tab Donepezil HCl (Aricept Tab*) 10 mg PO BEDTIME [facility] Last Admin: 05/25/18 22:55 Dose: 10 mg Heparin Sodium (Porcine) (Heparin Vial(*)) 5,000 units SUBCUT Q8HR [facility] Last Admin: 05/26/18 14:29 Dose: 5,000 units Piperacillin Sod/Tazobactam (Sod 3.375 gm/ Sodium Chloride) 100 mls @ 25 mls/ hr IVPB Q8H [facility] Last Admin: 05/26/18 14:29 Dose: 25 mls/hr Ibuprofen (Motrin Liq Adult*) 600 mg PO Q6H PRN PRN Reason: PAIN Last Admin: 05/24/18 10:15 Dose: 600 mg Levothyroxine Sodium (Synthroid Tab*) 125 mcg PO 0600 [facility] Last Admin: 05/26/18 05:42 Dose: 125 mcg Lorazepam (Ativan Inj*) 1 mg IV PUSH ONCE ONE Stop: 05/26/18 16:08 Ondansetron HCl (Zofran Inj*) 4 mg IV Q6H PRN PRN Reason: NAUSEA Last Admin: 05/25/18 23:02 Dose: 4 mg Oxycodone/Acetaminophen (Percocet 5/325 Tab*) 1 tab PO Q4H PRN PRN Reason: PAIN Last Admin: 05/25/18 02:30 Dose: 1 tab Selegiline HCl (Eldepryl Tab*) 5 mg PO BID@0800,1200 [facility] Last Admin: 05/26/18 10:30 Dose: Not Given Tamsulosin HCl (Flomax Cap*) 0.4 mg PO BEDTIME [facility] Last Admin: 05/25/18 23:27 Dose: Not Given Vital Signs - 8 hr 05/26/18 11:24 Temperature 97.4 F Pulse Rate 63 Respiratory 17 Rate Blood Pressure 130/67 (mmHg) O2 Sat by Pulse 96 Oximetry Oxygen Devices in Use Now: None Appearance: alert, periods of distress and impulsiveness Eyes: No Scleral Icterus, PERRLA Ears/Nose/Mouth/Throat: NL Teeth, Lips, Gums, Mucous Membranes Moist Neck: NL Appearance and Movements; NL JVP, Trachea Midline Respiratory: Symmetrical Chest Expansion and Respiratory Effort, Clear to Auscultation Cardiovascular: NL Sounds; No Murmurs; No JVD, RRR Abdominal: NL Sounds; No Tenderness; No Distention, - - colostomy drianing, dressing CDI Extremities: No Edema, No Clubbing, Cyanosis Skin: No Rash or Ulcers Neurological: - - confused with agitation Nutrition: - - refusing PO Result Diagrams: 05/22/18 05:44 05/26/18 10:04 Microbiology and Other Data: Microbiology 05/21/18 14:00 Skin and Soft Tissue MRSA/MSSA (PCR - Final Misc Source (See Comment) Mrsa Negative S.aureus Negative Gram Stain - Final Wound Culture - Preliminary Escherichia Coli Pseudomonas Aeruginosa 05/21/18 14:00 Anaerobic Culture - Preliminary Body Fluid - Peritoneal Bacteroides Vulgatus 05/21/18 11:10 Urine Culture - Final Urine No Growth (<1,000 CFU/mL) Assess/Plan/Problems-Billing Assessment: This is a 73 yo M with PMH of Parkinsons, BPH, and hypothyroidism; who presented to the ED with c/o abd pain and was found to have free air on CT; subsequently taken to the OR and was found to have perforated diverticulitis, now s/p sigmoid colectomy and end colostomy. Hospital medicine consulting for co -medical management. - Patient Problems (1) Perforated diverticulum Code(s): K57.80 - DVTRCLI OF INTEST, PART UNSP, W PERF AND ABSCESS W/O BLEED SNOMED Code(s): 68427961 Comment: - Free air noted on abd CT - POD5 sigmoid colectomy, end colostomy, and Rito pouch - Peritoneal fluid culture growing E. coli, Pseudomonas aeruginosa, Bacteroides vulgatus, continue empiric Zosyn - POC as per Surgery (2) BPH (benign prostatic hyperplasia) Code(s): N40.0 - BENIGN PROSTATIC HYPERPLASIA WITHOUT LOWER URINRY TRACT SYMP SNOMED Code(s): 103189830 Comment: - Continue flomax, will need trial to void when stable (3) Dementia associated with Parkinson's disease Code(s): G20 - PARKINSON'S DISEASE; F02.80 - DEMENTIA IN OTH DISEASES CLASSD ELSWHR W/O BEHAVRL DISTURB SNOMED Code(s): 189542805 Comment: - Remains confused, this is likely a toxic metabolic encephalopthy 2/2 existing Parkinson's dementia, post-operative delerium and medications - Neurology consult appreciated, recommending NG tube to restart oral meds and get behavior stabilized - IF NG tube successful, continue sinemet, selegeline, donepezil and namenda (4) Hypothyroidism Code(s): E03.9 - HYPOTHYROIDISM, UNSPECIFIED SNOMED Code(s): 09539187 Comment: - Continue levothyroxine daily (5) DVT prophylaxis Current Visit: Yes Status: Acute Code(s): KXZ9248 - SNOMED Code(s): 581432595 Comment: - Heparin SQ per Surgery (6) Full code status Current Visit: Yes Status: Acute Code(s): Z78.9 - OTHER SPECIFIED HEALTH STATUS SNOMED Code(s): 339434175 Status and Disposition: Inpatient. Dispo per surgery. Thank you for this consultation. We will continue to follow distantly. Please call with any questions or concerns.
[2018-05-26] MEDS ORDERED: LORazepam TAB(*) 1 MG PO PRN (17:16)
[2018-05-26] MEDS: Carbidopa/Levodop 25/100 MG TAB(*) PO SCH (21:28)
[2018-05-26] MEDS: Donepezil TAB* 5 MG PO SCH (21:28)
[2018-05-26] MEDS: Memantine TAB* 10 MG PO SCH (21:28)
[2018-05-26] MEDS: Tamsulosin CAP* 0.4 MG PO SCH (21:29)
[2018-05-27] MEDS: Ibuprofen ADULT LIQ* 600 MG/30 ML UDC PO PRN ×2 (05:47→20:31)
[2018-05-27] MEDS: Heparin VIAL(*) 5000 UNITS/ML VIAL (FIVE THOUSAND) SUBCUT SCH ×3 (05:47→22:03)
[2018-05-27] MEDS: Levothyroxine TAB* 125 MCG TAB PO SCH (05:47)
[2018-05-27] MEDS: Piperacillin/Tazobactam VIAL*) 3.375 GM in NS 0.9% 100 ML* 100 ML IVPB SCH ×3 (05:47→21:51)
[2018-05-27] MEDS: Amantadine CAP* 100 MG PO SCH ×2 (07:31→12:17)
[2018-05-27] MEDS: Selegiline TAB* 5 MG PO SCH ×2 (07:31→12:18)
[2018-05-27] MEDS: Carbidopa/Levodop 25/100 MG TAB(*) PO SCH ×3 (07:31→20:31)
[2018-05-27] MEDS: Memantine TAB* 10 MG PO SCH ×2 (07:31→20:31)
[2018-05-27] MEDS: D5LR 1000 ML BAG* 1,000 ML IV SCH ×2 (08:30→16:27)
--- NOTE | 2018-05-27 09:09 | PN ---
Progress Note - Progress Note Date of Service: 05/27/18 SOAP: Subjective:pod#6s/p Rito's for perf'd divertic;Parkinson's awake,responds to commands but nonverbal,less agitated [] Objective: Vital Signs Temp 97.5 F 05/27/18 07:51 Pulse 68 05/27/18 07:45 Resp 20 05/27/18 07:52 BP 122/67 05/27/18 07:45 Pulse Ox 96 05/27/18 07:45 Intake & Output 05/26/18 05/27/18 05/27/18 18:59 06:59 18:59 Intake Total 280 215 160 Output Total 1400 875 50 Balance -1120 -660 110 Intake: IV Fluids 20 NS (0.9%) 20 IVPB 110 215 ABX - ZOSYN 110 215 Oral 100 0 Tube Feeding Flush Amount 160 NG Tube Irrigate Amount 50 Output: NG Tube Drainage Amount 900 500 Urine 300 225 50 Colostomy 200 150 Other: Estimated Void Medium # Voids 1 lungs:clear bilat anterior;heart:RRR,no murmur;Abd:hypoactive bs,soft,less distended;midline incision c/d/i intact with lili,1/4"lisa replaced in between lili,no erythema;ostomy with liq brown stool;ext:no edema,SCDs on [] Assessment:less agitated,more awake;less distended after NG placement [] Plan:PICC line placement and TPN panel today resume IV fluids continue NG start TPN today or tomorrow cbc,lytes 05/28/[address] Amaro;pt agrees with plan []
[2018-05-27 09:32] LABS: Albumin 3.3 g/dL (3.2-5.2); Albumin/Globulin Ratio 1.2 (1-3); BUN/Creatinine Ratio 19.7 (8-20); Calcium 8.4 mg/dL (8.6-10.3); EGFR Non-African American 100.8 (>60); Globulin 2.7 g/dL (2-4); Magnesium 1.8 mg/dL (1.9-2.7); Phosphorus 2.4 mg/dL (2.5-5.0); Potassium 3.2 mmol/L (3.5-5.0); Total Bilirubin 0.8 mg/dL (0.2-1.0)
--- NOTE | 2018-05-27 11:22 | PN ---
Subjective Date of Service: 05/27/18 Length of Stay: 6 Days Neurology is following for the evaluation and management of parkinsons disease Interval History: at the bedside who notes an improvement in cognition and agitation. He is still not at his baseline but more comfortable according to her. Review of Systems: unreliable due to patient condition Family History: Unchanged from Admission Social History: Unchanged from Admission Past Medical History: Unchanged from Admission Objective Active Medications: Acetaminophen (Tylenol Tab*) 650 mg PO Q4H PRN PRN Reason: FEVER/PAIN Last Admin: 05/26/18 05:47 Dose: 325 mg Amantadine HCl (Symmetrel Cap*) 100 mg PO BID@0800,1200 [facility] Last Admin: 05/27/18 07:31 Dose: 100 mg Carbidopa/Levodopa (Sinemet 25/100 Tab(*)) 1 tab PO TID [facility] Stop: 05/28/18 12:00 Last Admin: 05/27/18 07:31 Dose: 1 tab Donepezil HCl (Aricept Tab*) 10 mg PO BEDTIME [facility] Last Admin: 05/26/18 21:28 Dose: 10 mg Heparin Sodium (Porcine) (Heparin Vial(*)) 5,000 units SUBCUT Q8HR [facility] Last Admin: 05/27/18 05:47 Dose: 5,000 units Piperacillin Sod/Tazobactam (Sod 3.375 gm/ Sodium Chloride) 100 mls @ 25 mls/ hr IVPB Q8H [facility] Last Admin: 05/27/18 05:47 Dose: 25 mls/hr Dextrose/Lactated Ringer's (D5lr 1000 Ml Bag*) 1,000 mls @ 125 mls/hr IV PER RATE [facility] Last Admin: 05/27/18 08:30 Dose: 125 mls/hr Dextrose 500 ml/ Amino Acids 850 ml/ Sterile Water 150 ml/Fat Emulsion Intravenous 250 ml/ Sodium Chloride 100 meq/Potassium Chloride 50 meq/Potassium Phosphate 20 mmole/Calcium Gluconate 10 meq/Magnesium Sulfate 10 meq/ Multivitamins 10 ml/ Trace Metals 1 ml/ Nutrition ( Parenteral) 1,841.6347 mls @ 76.735 mls/hr [facility] 1700 [facility]; Protocol Ibuprofen (Motrin Liq Adult*) 600 mg PO Q6H PRN PRN Reason: PAIN Last Admin: 05/27/18 05:47 Dose: 600 mg Levothyroxine Sodium (Synthroid Tab*) 125 mcg PO 0600 [facility] Last Admin: 05/27/18 05:47 Dose: 125 mcg Lorazepam (Ativan Tab(*)) 1 mg PO Q6H PRN PRN Reason: AGITATION Stop: 05/28/18 17:00 Memantine (Namenda Tab*) 10 mg PO BID [facility] Last Admin: 05/27/18 07:31 Dose: 10 mg Ondansetron HCl (Zofran Inj*) 4 mg IV Q6H PRN PRN Reason: NAUSEA Last Admin: 05/25/18 23:02 Dose: 4 mg Selegiline HCl (Eldepryl Tab*) 5 mg PO BID@0800,1200 [facility] Last Admin: 05/27/18 07:31 Dose: 5 mg Tamsulosin HCl (Flomax Cap*) 0.4 mg PO BEDTIME [facility] Last Admin: 05/26/18 21:29 Dose: Not Given Vital Signs 05/26/18 05/26/18 05/26/18 11:24 16:12 16:50 Temperature 97.4 F Pulse Rate 63 80 Respiratory 17 18 16 Rate Blood Pressure 130/67 107/64 (mmHg) O2 Sat by Pulse 96 95 Oximetry 05/26/18 05/26/18 05/26/18 17:06 20:00 20:50 Temperature 99.0 F Pulse Rate Respiratory 16 16 Rate Blood Pressure (mmHg) O2 Sat by Pulse Oximetry 05/26/18 05/27/18 05/27/18 20:52 00:23 04:34 Temperature 98.6 F 99.0 F Pulse Rate 69 63 78 Respiratory 16 18 18 Rate Blood Pressure 126/65 117/61 142/66 (mmHg) O2 Sat by Pulse 98 96 95 Oximetry 05/27/18 05/27/18 05/27/18 07:45 07:51 07:52 Temperature 97.5 F Pulse Rate 68 Respiratory 20 20 Rate Blood Pressure 122/67 (mmHg) O2 Sat by Pulse 96 Oximetry Intake and Output Last 24 Hours 05/25/18 05/26/18 05/27/18 05/28/18 06:59 06:59 06:59 06:59 Intake Total 1803 969 495 160 Output Total 275 9791 4108 50 Balance 1524 -905 -6926 110 Intake: IV Fluids 103 485 20 NS (0.9%) 103 485 20 IVPB 1050 324 325 ABX - ZOSYN 305 324 325 NS (0.9%) 745 Oral 650 160 100 Tube Feeding Flush Amount 160 NG Tube Irrigate Amount 50 Output: NG Tube Drainage Amount 1400 Urine 275 800 525 50 Colostomy 0 305 350 Other: Estimated Void Small Medium Medium # Voids 1 1 Oxygen Devices in Use Now: None Neurology Exam: Exam: General: NAD, NCAT CVS/Resp: regular rate, breathing comfortably Mental Status: alert, oriented to self only, able to name and repeat CN: PERRLA, EOMI, face symmetrical, tongue midline Motor: increased tone in the arms and legs with rest tremor right arm > left Sensory: grossly intact LT in arms, legs, and trunk Coord/ Gait: intact FTN Result Diagrams: 05/22/18 05:44 05/27/18 09:00 Microbiology and Other Data: Microbiology 05/21/18 14:00 Skin and Soft Tissue MRSA/MSSA (PCR - Final Misc Source (See Comment) Mrsa Negative S.aureus Negative Gram Stain - Final Wound Culture - Preliminary Escherichia Coli Pseudomonas Aeruginosa 05/21/18 14:00 Anaerobic Culture - Preliminary Body Fluid - Peritoneal Bacteroides Vulgatus 05/21/18 11:10 Urine Culture - Final Urine No Growth (<1,000 CFU/mL) Assessment/Plan Assessment: 73 yr old man with Parkinsons Disease with missed doses of medications and recent surgery. Patient with off- phenomenon due to missed medications as well as poor absorption . Likely with some hospital acquired delirium as well due to UTI and recent surgery. Recommendations Continue Sinemet 25/100, 1 tab TID. Resume home dosing on discharge. Continue Amantadine 100 BID Continue Selegiline 5mg BID Continue Donepezil 10 at bedtime F/U with Dr. Yeager upon discharge
--- NOTE | 2018-05-27 15:36 | PN ---
Subjective Date of Service: 05/27/18 Interval History: Patient seen and examined. Less combative, remains confused. Per RN, patient at times still pulling at NG tube but behavior has been improving. Patient able to state he wants to go home. Family History: Unchanged from Admission Social History: Unchanged from Admission Past Medical History: Unchanged from Admission Objective Active Medications: Acetaminophen (Tylenol Tab*) 650 mg PO Q4H PRN PRN Reason: FEVER/PAIN Last Admin: 05/26/18 05:47 Dose: 325 mg Amantadine HCl (Symmetrel Cap*) 100 mg PO BID@0800,1200 [facility] Last Admin: 05/27/18 12:17 Dose: 100 mg Carbidopa/Levodopa (Sinemet 25/100 Tab(*)) 1 tab PO TID [facility] Stop: 05/28/18 12:00 Last Admin: 05/27/18 13:43 Dose: 1 tab Donepezil HCl (Aricept Tab*) 10 mg PO BEDTIME [facility] Last Admin: 05/26/18 21:28 Dose: 10 mg Heparin Sodium (Porcine) (Heparin Vial(*)) 5,000 units SUBCUT Q8HR [facility] Last Admin: 05/27/18 13:43 Dose: 5,000 units Piperacillin Sod/Tazobactam (Sod 3.375 gm/ Sodium Chloride) 100 mls @ 25 mls/ hr IVPB Q8H [facility] Last Admin: 05/27/18 13:43 Dose: 25 mls/hr Dextrose/Lactated Ringer's (D5lr 1000 Ml Bag*) 1,000 mls @ 125 mls/hr IV PER RATE [facility] Last Admin: 05/27/18 08:30 Dose: 125 mls/hr Dextrose 500 ml/ Amino Acids 850 ml/ Sterile Water 150 ml/Fat Emulsion Intravenous 250 ml/ Sodium Chloride 100 meq/Potassium Chloride 50 meq/Potassium Phosphate 20 mmole/Calcium Gluconate 10 meq/Magnesium Sulfate 10 meq/ Multivitamins 10 ml/ Trace Metals 1 ml/ Nutrition ( Parenteral) 1,841.6347 mls @ 76.735 mls/hr [facility] 1700 [facility]; Protocol Ibuprofen (Motrin Liq Adult*) 600 mg PO Q6H PRN PRN Reason: PAIN Last Admin: 05/27/18 05:47 Dose: 600 mg Levothyroxine Sodium (Synthroid Tab*) 125 mcg PO 0600 [facility] Last Admin: 12/27/18 05:47 Dose: 125 mcg Lorazepam (Ativan Tab(*)) 1 mg PO Q6H PRN PRN Reason: AGITATION Stop: 05/28/18 17:00 Memantine (Namenda Tab*) 10 mg PO BID [facility] Last Admin: 05/27/18 07:31 Dose: 10 mg Ondansetron HCl (Zofran Inj*) 4 mg IV Q6H PRN PRN Reason: NAUSEA Last Admin: 05/25/18 23:02 Dose: 4 mg Selegiline HCl (Eldepryl Tab*) 5 mg PO BID@0800,1200 [facility] Last Admin: 05/27/18 12:18 Dose: 5 mg Tamsulosin HCl (Flomax Cap*) 0.4 mg PO BEDTIME [facility] Last Admin: 05/26/18 21:29 Dose: Not Given Vital Signs - 8 hr 05/27/18 05/27/18 05/27/18 07:45 07:51 07:52 Temperature 97.5 F Pulse Rate 68 Respiratory 20 20 Rate Blood Pressure 122/67 (mmHg) O2 Sat by Pulse 96 Oximetry 05/27/18 11:22 Temperature 98.4 F Pulse Rate 67 Respiratory 20 Rate Blood Pressure 131/70 (mmHg) O2 Sat by Pulse 96 Oximetry Oxygen Devices in Use Now: None Appearance: Alert, confused, comfortable Eyes: No Scleral Icterus, PERRLA Ears/Nose/Mouth/Throat: Mucous Membranes Moist Neck: NL Appearance and Movements; NL JVP, Trachea Midline Respiratory: Symmetrical Chest Expansion and Respiratory Effort, Clear to Auscultation Cardiovascular: NL Sounds; No Murmurs; No JVD, RRR, No Edema Abdominal: - - extremely hypoactive BS, soft, distended, ostomy in place Extremities: No Edema, No Clubbing, Cyanosis Skin: No Rash or Ulcers Neurological: - - confused Lines/Tubes/Other Access: Clean, Dry and Intact Other Access - ostomy, and NG tube to right nare Nutrition: - - NPO Result Diagrams: 05/22/18 05:44 05/27/18 09:00 Microbiology and Other Data: Microbiology 05/21/18 14:00 Skin and Soft Tissue MRSA/MSSA (PCR - Final Misc Source (See Comment) Mrsa Negative S.aureus Negative Gram Stain - Final Wound Culture - Preliminary Escherichia Coli Pseudomonas Aeruginosa 05/21/18 14:00 Anaerobic Culture - Preliminary Body Fluid - Peritoneal Bacteroides Vulgatus 05/21/18 11:10 Urine Culture - Final Urine No Growth (<1,000 CFU/mL) Assess/Plan/Problems-Billing Assessment: This is a 73 year old male with bowel perforation, s/p colostomy; post- operative course complicated by delerium and post-op ileus. - Patient Problems (1) Perforated diverticulum Code(s): K57.80 - DVTRCLI OF INTEST, PART UNSP, W PERF AND ABSCESS W/O BLEED SNOMED Code(s): 39086486 Comment: - Free air noted on abd CT - POD6 sigmoid colectomy, end colostomy, and Rito pouch - Peritoneal fluid culture growing E. coli, Pseudomonas aeruginosa, Bacteroides vulgatus, continue empiric Zosyn - POC as per Surgery (2) Postoperative ileus Code(s): K91.89 - OTH POSTPROCEDURAL COMPLICATIONS AND DISORDERS OF DGSTV SYS; K56.7 - ILEUS, UNSPECIFIED SNOMED Code(s): 667231449 Comment: - NPO - NG tube to low intermittent suction - TPN to start tomorrow - Ativan low dose PRN agitation, as patient has tried to pull out NG tube (3) BPH (benign prostatic hyperplasia) Code(s): N40.0 - BENIGN PROSTATIC HYPERPLASIA WITHOUT LOWER URINRY TRACT SYMP SNOMED Code(s): 506944078 Comment: - Continue flomax, will need trial to void when stable (4) Dementia associated with Parkinson's disease Code(s): G20 - PARKINSON'S DISEASE; F02.80 - DEMENTIA IN OTH DISEASES CLASSD ELSWHR W/O BEHAVRL DISTURB SNOMED Code(s): 594240130 Comment: - Remains confused, this is likely a toxic metabolic encephalopthy 2/2 existing Parkinson's dementia, post-operative delerium and medications - Neurology following, recommending NG tube to restart oral meds and get behavior stabilized, however patient has ileus so I am unsure how muchg medication he is absorbing - Will trial Neupro patch tomorrow and minimize meds through NG tube, as output is still significant - Continue selegeline, donepezil and namenda (5) Hypothyroidism Code(s): E03.9 - HYPOTHYROIDISM, UNSPECIFIED SNOMED Code(s): 02464046 Comment: - Continue levothyroxine daily (6) DVT prophylaxis Current Visit: Yes Status: Acute Code(s): FLG4171 - SNOMED Code(s): 797297724 Comment: - Heparin SQ per Surgery (7) Full code status Current Visit: Yes Status: Acute Code(s): Z78.9 - OTHER SPECIFIED HEALTH STATUS SNOMED Code(s): 935889848 Status and Disposition: Inpatient. Dispo per surgery. Continue close monitoring.
[2018-05-27] MEDS ORDERED: TPN CENTRAL STANDARD BASE A CENTR SCH ×12 (17:00)
[2018-05-27] MEDS: Tamsulosin CAP* 0.4 MG PO SCH (20:31)
[2018-05-27] MEDS: Donepezil TAB* 5 MG PO SCH (20:31)
[2018-05-28] MEDS: Acetaminophen TAB* 325 MG PO PRN ×3 (00:11→11:11)
[2018-05-28] MEDS: Levothyroxine TAB* 125 MCG TAB PO SCH (05:28)
[2018-05-28] MEDS: Heparin VIAL(*) 5000 UNITS/ML VIAL (FIVE THOUSAND) SUBCUT SCH ×3 (05:28→21:53)
[2018-05-28] MEDS: Piperacillin/Tazobactam VIAL*) 3.375 GM in NS 0.9% 100 ML* 100 ML IVPB SCH ×3 (05:54→22:23)
[2018-05-28 06:09] LABS: ABS Basophils 0.1 10^3/ul (0-0.2); ABS Eosinophils 0.1 10^3/ul (0-0.6); ABS Lymphocytes 1.3 10^3/ul (1.0-4.8); ABS Monocytes 0.7 10^3/ul (0-0.8); ABS Neutrophils 6.4 10^3/ul (1.5-7.7); ABS Nucleated RBC 0 10^3/ul; Hematocrit 33 % (42-52); Hemoglobin 11.4 g/dl (14.0-18.0); Lymphocyte % 14.8 %; Mean Corpuscular HGB Conc 34 g/dl (31-36); Mean Corpuscular Hemoglobin 30 pg (27-31); Mean Corpuscular Volume 89 fL (80-94); Mean Platelet Volume 7.6 fL (7.4-10.4); Nucleated Red Blood Cells % 0; Platelet Count 245 10^3/ul (150-450); Red Blood Count 3.76 10^6/ul (4.00-5.40); Red Cell Distribution Width 14 % (10.5-15); White Blood Count 8.5 10^3/ul (3.5-10.8)
[2018-05-28 06:38] LABS: Albumin 3.3 g/dL (3.2-5.2); Albumin/Globulin Ratio 1.3 (1-3); BUN/Creatinine Ratio 16.4 (8-20); Calcium 8.3 mg/dL (8.6-10.3); EGFR African American 141.1 (>60); EGFR Non-African American 116.6 (>60); Globulin 2.5 g/dL (2-4); Magnesium 1.9 mg/dL (1.9-2.7); Phosphorus 2.1 mg/dL (2.5-5.0); Potassium 3.1 mmol/L (3.5-5.0); Total Bilirubin 0.5 mg/dL (0.2-1.0); Total Protein 5.8 g/dL (6.4-8.9)
[2018-05-28] MEDS: Selegiline TAB* 5 MG PO SCH ×2 (07:46→11:12)
[2018-05-28] MEDS: Carbidopa/Levodop 25/100 MG TAB(*) PO SCH (07:48)
[2018-05-28] MEDS: Memantine TAB* 10 MG PO SCH ×2 (07:48→21:38)
[2018-05-28] MEDS: Amantadine CAP* 100 MG PO SCH ×2 (07:50→11:12)
[2018-05-28 09:00] LABS: Urine Appearance Clear; Urine Bilirubin Negative (Negative); Urine Blood Negative (Negative); Urine Color Yellow; Urine Glucose Negative (Negative); Urine Ketones Negative (Negative); Urine Nitrite Negative (Negative); Urine Protein Negative (Negative); Urine Specific Gravity 1.026 (1.010-1.030); Urine Urobilinogen Negative (Negative)
[2018-05-28] MEDS ORDERED: ROTIGOTINE 2 MG TOPICAL SCH (09:00)
--- NOTE | 2018-05-28 11:49 | PN ---
Subjective Date of Service: 05/28/18 Length of Stay: 7 Days Neurology is following for the evaluation and management of parkinsons disease Interval History: The patient is sitting up in a chair. at the bedside who notes that his mentation has improved compared to yesterday. He is able to correctly recognize and name the the newscasters on TV. Review of Systems: unreliable due to patient condition Family History: Unchanged from Admission Social History: Unchanged from Admission Past Medical History: Unchanged from Admission Objective Active Medications: Acetaminophen (Tylenol Tab*) 650 mg PO Q4H PRN PRN Reason: FEVER/PAIN Last Admin: 05/28/18 11:11 Dose: 650 mg Amantadine HCl (Symmetrel Cap*) 100 mg PO BID@0800,1200 [facility] Last Admin: 05/28/18 11:12 Dose: 100 mg Carbidopa/Levodopa (Sinemet 25/100 Tab(*)) 1 tab PO TID [facility] Stop: 05/28/18 12:00 Last Admin: 05/28/18 07:48 Dose: 1 tab Donepezil HCl (Aricept Tab*) 10 mg PO BEDTIME [facility] Last Admin: 05/27/18 20:31 Dose: 10 mg Heparin Sodium (Porcine) (Heparin Vial(*)) 5,000 units SUBCUT Q8HR [facility] Last Admin: 05/28/18 05:28 Dose: 5,000 units Heparin Sodium (Porcine) (Heparin Flush Picc/Ml/Cvc(*)) 1 - 3 ml FLUSH 0600, 1800 [facility]; Protocol Last Admin: 05/28/18 05:54 Dose: Not Given Piperacillin Sod/Tazobactam (Sod 3.375 gm/ Sodium Chloride) 100 mls @ 25 mls/ hr IVPB Q8H [facility] Last Admin: 05/28/18 05:54 Dose: 25 mls/hr Dextrose 500 ml/ Amino Acids 850 ml/ Sterile Water 150 ml/Fat Emulsion Intravenous 250 ml/ Sodium Chloride 100 meq/Potassium Chloride 50 meq/Potassium Phosphate 20 mmole/Calcium Gluconate 10 meq/Magnesium Sulfate 10 meq/ Multivitamins 10 ml/ Trace Metals 1 ml/ Nutrition ( Parenteral) 1,841.6347 mls @ 76.735 mls/hr [facility] 1700 [facility]; Protocol Last Admin: 05/27/18 17:05 Dose: 76.735 mls/hr Ibuprofen (Motrin Liq Adult*) 600 mg PO Q6H PRN PRN Reason: PAIN Last Admin: 05/27/18 20:31 Dose: 600 mg Levothyroxine Sodium (Synthroid Tab*) 125 mcg PO 0600 [facility] Last Admin: 05/28/18 05:28 Dose: 125 mcg Lorazepam (Ativan Tab(*)) 1 mg PO Q6H PRN PRN Reason: AGITATION Stop: 05/28/18 17:00 Memantine (Namenda Tab*) 10 mg PO BID [facility] Last Admin: 05/28/18 07:48 Dose: 10 mg Ondansetron HCl (Zofran Inj*) 4 mg IV Q6H PRN PRN Reason: NAUSEA Last Admin: 05/25/18 23:02 Dose: 4 mg Selegiline HCl (Eldepryl Tab*) 5 mg PO BID@0800,1200 [facility] Last Admin: 05/28/18 11:12 Dose: 5 mg Tamsulosin HCl (Flomax Cap*) 0.4 mg PO BEDTIME [facility] Last Admin: 05/27/18 20:31 Dose: 0.4 mg Vital Signs 05/27/18 05/27/18 05/27/18 16:34 16:35 19:51 Temperature 98.7 F Pulse Rate 61 Respiratory 18 18 Rate Blood Pressure 128/75 (mmHg) O2 Sat by Pulse 97 Oximetry 05/27/18 05/27/18 05/27/18 20:04 20:22 23:35 Temperature 99.1 F 97.8 F Pulse Rate 64 66 Respiratory 18 18 Rate Blood Pressure 136/66 146/72 (mmHg) O2 Sat by Pulse 97 96 Oximetry 05/28/18 05/28/18 05/28/18 03:28 07:19 08:15 Temperature 98.3 F Pulse Rate 61 60 Respiratory 16 18 18 Rate Blood Pressure 138/70 141/78 (mmHg) O2 Sat by Pulse 98 97 Oximetry Intake and Output Last 24 Hours 05/26/18 05/27/18 05/28/18 05/29/18 06:59 06:59 06:59 06:59 Intake Total 727 243 2115 120 Output Total 1105 2275 1320 200 Balance -136 -1780 617 -80 Weight 218 lb 4.8 oz Intake: IV Fluids 530 76 7980 D5LR 1360 NS (0.9%) 485 20 20 IVPB 324 325 237 ABX - ZOSYN 324 325 237 Oral 160 100 0 0 Tube Feeding Flush Amount 160 NG Tube Irrigate Amount 50 160 120 Output: NG Tube Drainage Amount 1400 520 Urine 800 525 775 200 Colostomy 305 350 25 Other: Estimated Void Medium Medium Medium # Voids 1 1 Oxygen Devices in Use Now: None Neurology Exam: Exam: General: NAD, NCAT CVS/Resp: regular rate, breathing comfortably Mental Status: alert, oriented to self only, able to name and repeat CN: PERRLA, EOMI, face symmetrical, tongue midline Motor: increased tone in the arms and legs with rest tremor right arm > left Sensory: grossly intact LT in arms, legs, and trunk Coord/ Gait: intact FTN Result Diagrams: 05/28/18 05:50 05/28/18 05:50 Microbiology and Other Data: Microbiology 05/21/18 14:00 Skin and Soft Tissue MRSA/MSSA (PCR - Final Misc Source (See Comment) Mrsa Negative S.aureus Negative Gram Stain - Final Wound Culture - Preliminary Escherichia Coli Pseudomonas Aeruginosa 05/21/18 14:00 Anaerobic Culture - Preliminary Body Fluid - Peritoneal Bacteroides Vulgatus 05/21/18 11:10 Urine Culture - Final Urine No Growth (<1,000 CFU/mL) Assessment/Plan Assessment: 73 yr old man with Parkinsons Disease. Patient with off- phenomenon due to missed medications as well as poor absorption . Likely with some hospital acquired delirium as well due to UTI and recent surgery. Recommendations Continue Sinemet 25/100, 1 tab TID. Resume home dosing on discharge. Agree with the neupro patch to bridge with until better absorption. Continue Amantadine 100 BID Continue Selegiline 5mg BID Continue Donepezil 10 at bedtime F/U with Dr. Yeager upon discharge Will sign off at this time please re consult as needed
--- NOTE | 2018-05-28 11:55 | PN ---
Progress Note - Progress Note Date of Service: 05/28/18 SOAP: Subjective: OOB in chair this morning, walked a little bit with walker Appears more alert Objective: Temp Pulse Resp BP Pulse Ox 98.3 F 60 18 141/78 97 05/28/18 07:19 05/28/18 07:19 05/28/18 08:15 05/28/18 07:19 05/28/18 07:19 Intake & Output 05/26/18 05/27/18 05/28/18 05/29/18 06:59 06:59 06:59 06:59 Intake Total 395 123 9842 120 Output Total 1105 2275 1320 200 Balance -136 -1780 617 -80 Weight 218 lb 4.8 oz Intake: IV Fluids 450 91 0641 D5LR 1360 NS (0.9%) 485 20 20 IVPB 324 325 237 ABX - ZOSYN 324 325 237 Oral 160 100 0 0 Tube Feeding Flush Amount 160 NG Tube Irrigate Amount 50 160 120 Output: NG Tube Drainage Amount 1400 520 Urine 800 525 775 200 Colostomy 305 350 25 Other: Estimated Void Medium Medium Medium # Voids 1 1 PEX: Comfortable-awake and alert, non-verbal Abd is soft and distended. No bowel sounds present. Incision is clean and open, packing changed. Ostomy is pink and edematous, no stool in bag Laboratory Results - last 24 hr 05/27/18 05/27/18 05/28/18 18:00 21:57 01:51 WBC RBC Hgb Hct MCV MCH MCHC RDW Plt Count MPV Neut % (Auto) Lymph % (Auto) [place] % (Auto) Eos % (Auto) Baso % (Auto) Absolute Neuts (auto) Absolute Lymphs (auto) Absolute Monos (auto) Absolute Eos (auto) Absolute Basos (auto) Absolute Nucleated RBC Nucleated RBC % Sodium Potassium Chloride Carbon Dioxide Anion Gap BUN Creatinine Est GFR ( Amer) Est GFR (Non-Af Amer) BUN/Creatinine Ratio Glucose POC Glucose (mg/dL) 189 H 173 H 167 H Calcium Phosphorus Magnesium Total Bilirubin AST ALT Alkaline Phosphatase Total Protein Albumin Globulin Albumin/Globulin Ratio Prealbumin Triglycerides Cholesterol Urine Color Urine Appearance Urine pH Ur Specific [place] Urine Protein Urine Ketones Urine Blood Urine Nitrate Urine Bilirubin Urine Urobilinogen Ur Leukocyte Esterase Urine Glucose 05/28/18 05/28/18 05/28/18 05:50 05:50 06:01 WBC 8.5 RBC 3.76 L Hgb 11.4 L Hct 33 L MCV 89 MCH 30 MCHC 34 RDW 14 Plt Count 245 MPV 7.6 Neut % (Auto) 75.5 Lymph % (Auto) 14.8 Cowley % (Auto) 8.0 Eos % (Auto) 1.0 Baso % (Auto) 0.7 Absolute Neuts (auto) 6.4 Absolute Lymphs (auto) 1.3 Absolute Monos (auto) 0.7 Absolute Eos (auto) 0.1 Absolute Basos (auto) 0.1 Absolute Nucleated RBC 0 Nucleated RBC % 0 Sodium 144 Potassium 3.1 L Chloride 107 Carbon Dioxide 30 Anion Gap 7 BUN 11 Creatinine 0.67 Est GFR ( Amer) 141.1 Est GFR (Non-Af Amer) 116.6 BUN/Creatinine Ratio 16.4 Glucose 154 H POC Glucose (mg/dL) 172 H Calcium 8.3 L Phosphorus 2.1 L Magnesium 1.9 Total Bilirubin 0.50 AST 23 ALT 14 Alkaline Phosphatase 71 Total Protein 5.8 L Albumin 3.3 Globulin 2.5 Albumin/Globulin Ratio 1.3 Prealbumin 14 L Triglycerides 138 Cholesterol 145 Urine Color Urine Appearance Urine pH Ur Specific [place] Urine Protein Urine Ketones Urine Blood Urine Nitrate Urine Bilirubin Urine Urobilinogen Ur Leukocyte Esterase Urine Glucose 05/28/18 05/28/18 08:30 10:08 WBC RBC Hgb Hct MCV MCH MCHC RDW Plt Count MPV Neut % (Auto) Lymph % (Auto) [place] % (Auto) Eos % (Auto) Baso % (Auto) Absolute Neuts (auto) Absolute Lymphs (auto) Absolute Monos (auto) Absolute Eos (auto) Absolute Basos (auto) Absolute Nucleated RBC Nucleated RBC % Sodium Potassium Chloride Carbon Dioxide Anion Gap BUN Creatinine Est GFR ( Amer) Est GFR (Non-Af Amer) BUN/Creatinine Ratio Glucose POC Glucose (mg/dL) 148 H Calcium Phosphorus Magnesium Total Bilirubin AST ALT Alkaline Phosphatase Total Protein Albumin Globulin Albumin/Globulin Ratio Prealbumin Triglycerides Cholesterol Urine Color Yellow Urine Appearance Clear Urine pH 8.0 Ur Specific [place] 1.026 Urine Protein Negative Urine Ketones Negative Urine Blood Negative Urine Nitrate Negative Urine Bilirubin Negative Urine Urobilinogen Negative Ur Leukocyte Esterase Negative Urine Glucose Negative Assessment: S/P exlap with sigmoid colectomy for perforated diverticula-colostomy Ileus Parkinson's disease Plan: Continue NGT for medicine administration, decompression TPN Wound, ostomy Care IV abx
--- NOTE | 2018-05-28 12:15 | PN ---
Subjective Date of Service: 05/28/18 Interval History: Patient seen and examined, at bedside. appears more comfortable today, less output on NG tube, remains confused but follows some directions. Family History: Unchanged from Admission Social History: Unchanged from Admission Past Medical History: Unchanged from Admission Objective Active Medications: Acetaminophen (Tylenol Tab*) 650 mg PO Q4H PRN PRN Reason: FEVER/PAIN Last Admin: 05/28/18 11:11 Dose: 650 mg Amantadine HCl (Symmetrel Cap*) 100 mg PO BID@0800,1200 [facility] Last Admin: 05/28/18 11:12 Dose: 100 mg Donepezil HCl (Aricept Tab*) 10 mg PO BEDTIME [facility] Last Admin: 05/27/18 20:31 Dose: 10 mg Heparin Sodium (Porcine) (Heparin Vial(*)) 5,000 units SUBCUT Q8HR [facility] Last Admin: 05/28/18 05:28 Dose: 5,000 units Heparin Sodium (Porcine) (Heparin Flush Picc/Ml/Cvc(*)) 1 - 3 ml FLUSH 0600, 1800 [facility]; Protocol Last Admin: 05/28/18 05:54 Dose: Not Given Piperacillin Sod/Tazobactam (Sod 3.375 gm/ Sodium Chloride) 100 mls @ 25 mls/ hr IVPB Q8H [facility] Last Admin: 05/28/18 05:54 Dose: 25 mls/hr Dextrose 500 ml/ Amino Acids 850 ml/ Sterile Water 150 ml/Fat Emulsion Intravenous 250 ml/ Sodium Chloride 100 meq/Potassium Chloride 50 meq/Potassium Phosphate 20 mmole/Calcium Gluconate 10 meq/Magnesium Sulfate 10 meq/ Multivitamins 10 ml/ Trace Metals 1 ml/ Nutrition ( Parenteral) 1,841.6347 mls @ 76.735 mls/hr [facility] 1700 [facility]; Protocol Last Admin: 05/27/18 17:05 Dose: 76.735 mls/hr Ibuprofen (Motrin Liq Adult*) 600 mg PO Q6H PRN PRN Reason: PAIN Last Admin: 05/27/18 20:31 Dose: 600 mg Levothyroxine Sodium (Synthroid Tab*) 125 mcg PO 0600 [facility] Last Admin: 05/28/18 05:28 Dose: 125 mcg Lorazepam (Ativan Tab(*)) 1 mg PO Q6H PRN PRN Reason: AGITATION Stop: 05/28/18 17:00 Memantine (Namenda Tab*) 10 mg PO BID [facility] Last Admin: 05/28/18 07:48 Dose: 10 mg Ondansetron HCl (Zofran Inj*) 4 mg IV Q6H PRN PRN Reason: NAUSEA Last Admin: 05/25/18 23:02 Dose: 4 mg Selegiline HCl (Eldepryl Tab*) 5 mg PO BID@0800,1200 [facility] Last Admin: 05/28/18 11:12 Dose: 5 mg Tamsulosin HCl (Flomax Cap*) 0.4 mg PO BEDTIME [facility] Last Admin: 05/27/18 20:31 Dose: 0.4 mg Vital Signs - 8 hr 05/28/18 05/28/18 05/28/18 07:19 08:15 11:23 Temperature 98.3 F 97.8 F Pulse Rate 60 67 Respiratory 18 18 18 Rate Blood Pressure 141/78 124/75 (mmHg) O2 Sat by Pulse 97 99 Oximetry Oxygen Devices in Use Now: None Appearance: alert, confused, NAD Eyes: No Scleral Icterus, PERRLA Ears/Nose/Mouth/Throat: NL Teeth, Lips, Gums, Mucous Membranes Moist Neck: NL Appearance and Movements; NL JVP, Trachea Midline Respiratory: Symmetrical Chest Expansion and Respiratory Effort, Clear to Auscultation Cardiovascular: NL Sounds; No Murmurs; No JVD, RRR, No Edema Abdominal: - - hypoactive BS, dressing CDI, ostomy back in place Extremities: No Edema, No Clubbing, Cyanosis Skin: No Rash or Ulcers Neurological: - - alert, confused Lines/Tubes/Other Access: Clean, Dry and Intact Other Access - NG tube right nare Nutrition: - - NPO Result Diagrams: 05/28/18 05:50 05/28/18 05:50 Microbiology and Other Data: Microbiology 05/21/18 14:00 Skin and Soft Tissue MRSA/MSSA (PCR - Final Misc Source (See Comment) Mrsa Negative S.aureus Negative Gram Stain - Final Wound Culture - Preliminary Escherichia Coli Pseudomonas Aeruginosa 05/21/18 14:00 Anaerobic Culture - Preliminary Body Fluid - Peritoneal Bacteroides Vulgatus 05/21/18 11:10 Urine Culture - Final Urine No Growth (<1,000 CFU/mL) Assess/Plan/Problems-Billing Assessment: This is a 73 yr old man with bowel perforation, s/p colectomy and ostomy, history of Parkinsons Disease with dementia that has been complicated by acute infection, surgery and off medications 2/2 NPO status. - Patient Problems (1) Perforated diverticulum Code(s): K57.80 - DVTRCLI OF INTEST, PART UNSP, W PERF AND ABSCESS W/O BLEED SNOMED Code(s): 78930449 Comment: - POD7 sigmoid colectomy, end colostomy, and Rito pouch - Peritoneal fluid culture growing E. coli, Pseudomonas aeruginosa, Bacteroides vulgatus, continue empiric Zosyn - POC as per Surgery (2) Postoperative ileus Code(s): K91.89 - OTH POSTPROCEDURAL COMPLICATIONS AND DISORDERS OF DGSTV SYS; K56.7 - ILEUS, UNSPECIFIED SNOMED Code(s): 340882897 Comment: - NPO - NG tube to low intermittent suction - TPN adjusted today based on electrolytes, base 2, dose of K-phos IVPB today - Ativan low dose PRN agitation, as patient has tried to pull out NG tube (3) BPH (benign prostatic hyperplasia) Code(s): N40.0 - BENIGN PROSTATIC HYPERPLASIA WITHOUT LOWER URINRY TRACT SYMP SNOMED Code(s): 319469282 Comment: - Continue flomax, will need trial to void when stable, continue orellana for now (4) Dementia associated with Parkinson's disease Code(s): G20 - PARKINSON'S DISEASE; F02.80 - DEMENTIA IN OTH DISEASES CLASSD ELSWHR W/O BEHAVRL DISTURB SNOMED Code(s): 041553290 Comment: - Remains confused, this is likely a toxic metabolic encephalopthy 2/2 existing Parkinson's dementia, post-operative delerium and medications and lack of sinemet prior to surgery - Neurology consult appreciated, will trial Neupro patch and minimize meds through NG tube to ensure more consistent absorption - Continue selegeline, donepezil and namenda - Ativan PRN (5) Hypothyroidism Code(s): E03.9 - HYPOTHYROIDISM, UNSPECIFIED SNOMED Code(s): 71321132 Comment: - Continue levothyroxine daily (6) DVT prophylaxis Current Visit: Yes Status: Acute Code(s): IPG6147 - SNOMED Code(s): 919381236 Comment: - Heparin SQ per Surgery (7) Full code status Current Visit: Yes Status: Acute Code(s): Z78.9 - OTHER SPECIFIED HEALTH STATUS SNOMED Code(s): 424715884 Status and Disposition: Inpatient. Dispo per surgery. Continue close monitoring.
[2018-05-28] MEDS ORDERED: LORazepam INJ* 2 MG/ML 1 ML VIAL ONE (12:22)
[2018-05-28] MEDS: LORazepam INJ* 2 MG/ML 1 ML VIAL IV PUSH PRN (12:25)
[2018-05-28] MEDS: ROTIGOTINE 2 MG TOPICAL SCH (12:28)
[2018-05-28] MEDS ORDERED: Potassium Phosphate IV* 15 MMOLE in NS 0.9% 250 ML* 250 ML IVPB ONE (13:00)
[2018-05-28] MEDS: TPN* 24 HR with Sodium Chloride Conc 23.4%* 100 MEQ, Potassium Chloride TPN 50 MEQ, Pot... CENT\\PICC SCH ×13 (16:39)
[2018-05-28] MEDS ORDERED: Donepezil TAB* 5 MG G TUBE SCH (21:28)
[2018-05-28] MEDS: Tamsulosin CAP* 0.4 MG PO SCH (21:32)
[2018-05-28] MEDS: Ibuprofen ADULT LIQ* 600 MG/30 ML UDC PO PRN (21:35)
[2018-05-28] MEDS: Donepezil TAB* 5 MG PO SCH (21:38)
[2018-05-28] MEDS ORDERED: Acetaminophen ADULT LIQ* 650 MG/20.3 ML UDC PO PRN (22:00)
[2018-05-29] MEDS: Piperacillin/Tazobactam VIAL*) 3.375 GM in NS 0.9% 100 ML* 100 ML IVPB SCH ×4 (03:05→19:46)
[2018-05-29] MEDS: Levothyroxine TAB* 125 MCG TAB NG TUBE SCH (05:36)
[2018-05-29] MEDS: Heparin VIAL(*) 5000 UNITS/ML VIAL (FIVE THOUSAND) SUBCUT SCH ×3 (05:45→21:17)
--- NOTE | 2018-05-29 08:12 | PN ---
Progress Note - Progress Note Date of Service: 05/29/18 SOAP: Subjective: Comfortable feels he is more alert, calm Objective: Temp Pulse Resp BP Pulse Ox 98.3 F 63 18 127/63 97 05/29/18 07:19 05/29/18 07:19 05/29/18 07:19 05/29/18 07:19 05/29/18 07:19 Intake & Output 05/27/18 05/28/18 05/29/18 05/30/18 06:59 06:59 06:59 06:59 Intake Total 495 1937 1132 Output Total 2275 1320 1930 Balance -1780 617 -798 Weight 218 lb 4.8 oz 217 lb 11.2 oz Intake: IV Fluids 20 1380 209 D5LR 1360 NS (0.9%) 20 20 209 IVPB 325 237 593 ABX - ZOSYN 325 237 320 potassium phosphate 273 Oral 100 0 0 Tube Feeding Flush Amount 160 NG Tube Irrigate Amount 50 160 330 Output: NG Tube Drainage Amount 1400 520 950 Urine 525 775 955 Colostomy 350 25 25 Other: Estimated Void Medium Medium # Voids 1 1 PEX: Awake and alert- Abd is soft and distended. Bowel sounds are minimal, not high pitched or tinkling. Wound is clean and open. Ostomy is pink and healthy-no output in bag of stool or gas. Assessment: S/P ex lap sigmoid resection with colostomy for perforated diverticula Parkinson's disease Plan: IV abx-cultures noted--Zosyn TPN Wound care Leave NGT in for medicine administration Physical therapy
[2018-05-29] MEDS: Selegiline TAB* 5 MG G TUBE SCH ×2 (08:14→12:34)
[2018-05-29] MEDS: Memantine TAB* 10 MG G TUBE SCH ×2 (08:14→21:10)
[2018-05-29] MEDS: Amantadine CAP* 100 MG SCH ×2 (08:15→12:34)
[2018-05-29] MEDS: ROTIGOTINE 2 MG TOPICAL SCH (08:23)
--- NOTE | 2018-05-29 09:48 | PN ---
Subjective Date of Service: 05/29/18 Interval History: Pt is more alert today than previously, per , who is at bedside. Family History: Unchanged from Admission Social History: Unchanged from Admission Past Medical History: Unchanged from Admission Objective Active Medications: Acetaminophen (Tylenol Adult Liq*) 650 mg PO Q4H PRN Amantadine HCl (Symmetrel Cap*) 100 mg .SEE ORDER BID@0800,1200 [facility] Donepezil HCl (Aricept Tab*) 10 mg G TUBE BEDTIME [facility] Heparin Sodium (Porcine) (Heparin Vial(*)) 5,000 units SUBCUT Q8HR [facility] Heparin Sodium (Porcine) (Heparin Flush Picc/Ml/Cvc(*)) 1 - 3 ml FLUSH 0600, 1800 [facility]; Protocol Sodium Chloride 100 meq/Potassium Chloride 50 meq/Potassium Phosphate 20 mmole/ Calcium Gluconate 10 meq/Magnesium Sulfate 10 meq/Multivitamins 10 ml/ Trace Metals 1 ml/ Insulin Human Regular 10 units/ Dextrose 1, 000 ml/ Amino Acids 850 ml/Sterile Water 150 ml/ Fat Emulsion Intravenous 250 ml/Nutrition ( Parenteral) 2,341.7347 mls @ 97.572 mls/hr [facility]\PICC 1700 [facility]; Protocol Piperacillin Sod/Tazobactam (Sod 3.375 gm/ Sodium Chloride) 100 mls @ 200 mls/ hr IVPB Q6H [facility] Ibuprofen (Motrin Liq Adult*) 600 mg PO Q6H PRN Levothyroxine Sodium (Synthroid Tab*) 125 mcg NG TUBE 0600 [facility] Lorazepam (Ativan Inj*) 0.5 mg IV PUSH Q6H PRN Memantine (Namenda Tab*) 10 mg G TUBE BID [facility] Ondansetron HCl (Zofran Inj*) 4 mg IV Q6H PRN Selegiline HCl (Eldepryl Tab*) 5 mg G TUBE BID@0800,1200 [facility] Tamsulosin HCl (Flomax Cap*) 0.4 mg PO BEDTIME [facility] Vital Signs: Temp Pulse Resp BP Pulse Ox 98.3 F 63 16 127/63 97 05/29/18 07:19 05/29/18 07:19 05/29/18 08:15 05/29/18 07:19 05/29/18 07:19 Oxygen Devices in Use Now: None Appearance: Pt is awake and resting in bed, with at bedside. In no acute distress. Eyes: No Scleral Icterus Ears/Nose/Mouth/Throat: NL Teeth, Lips, Gums, - - Mucous membranes appear dry- pt using mouth swabs Neck: NL Appearance and Movements; NL JVP, Trachea Midline Respiratory: Symmetrical Chest Expansion and Respiratory Effort, Clear to Auscultation Cardiovascular: NL Sounds; No Murmurs; No JVD, RRR, No Edema Abdominal: - - Bowel sounds hypoactive, but present. Ostomy in place with scant output. Extremities: No Edema, No Clubbing, Cyanosis Skin: No Rash or Ulcers Neurological: - - alert Lines/Tubes/Other Access: Clean, Dry and Intact Naso-enteral Tube - NGT intact, R nostril Result Diagrams: 05/28/18 05:50 05/29/18 12:12 Microbiology and Other Data: Microbiology 05/21/18 14:00 Skin and Soft Tissue MRSA/MSSA (PCR - Final Misc Source (See Comment) Mrsa Negative S.aureus Negative Gram Stain - Final Wound Culture - Preliminary Escherichia Coli Pseudomonas Aeruginosa 05/21/18 14:00 Anaerobic Culture - Preliminary Body Fluid - Peritoneal Bacteroides Vulgatus 05/21/18 11:10 Urine Culture - Final Urine No Growth (<1,000 CFU/mL) Assess/Plan/Problems-Billing Assessment: This is a 73 yr old man with bowel perforation, s/p colectomy and ostomy, history of Parkinsons Disease with dementia that has been complicated by acute infection, surgery and off medications 2/2 NPO status. - Patient Problems (1) Perforated diverticulum Comment: - POD8 sigmoid colectomy, end colostomy, and Rito pouch - Peritoneal fluid culture growing E. coli, Pseudomonas aeruginosa, Bacteroides vulgatus, continue empiric Zosyn - POC as per Surgery (2) Postoperative ileus Comment: - NPO - NG tube to low intermittent suction - Low K replenished IV - Ativan low dose PRN agitation, as patient has tried to pull out NG tube - Repeat TPN labs as ordered on 06/01 (3) Dementia associated with Parkinson's disease Comment: - Remains confused, this is likely a toxic metabolic encephalopthy 2/2 existing Parkinson's dementia, post-operative delerium and medications and lack of sinemet prior to surgery - Neurology consult appreciated, will trial Neupro patch and minimize meds through NG tube to ensure more consistent absorption - Continue selegeline, donepezil and namenda - Ativan PRN (4) Parkinson disease Comment: - Continue Neupro; Sinemet d/c, as absorption of PO medication may be impaired - Will restart selegiline and amatadine as he is now tolerating clears (5) BPH (benign prostatic hyperplasia) Comment: - Continue flomax, will need trial to void when stable, continue orellana for now (6) Hypothyroidism Comment: - Continue levothyroxine daily (7) DVT prophylaxis Comment: - Heparin SQ per Surgery (8) Full code status Status and Disposition: Inpatient. Dispo per surgery. Continue close monitoring.
[2018-05-29 12:34] LABS: Albumin 3.4 g/dL (3.2-5.2); Albumin/Globulin Ratio 1.3 (1-3); BUN/Creatinine Ratio 18.8 (8-20); Calcium 8.1 mg/dL (8.6-10.3); EGFR African American 148.7 (>60); EGFR Non-African American 122.9 (>60); Globulin 2.7 g/dL (2-4); Magnesium 1.8 mg/dL (1.9-2.7); Phosphorus 2.8 mg/dL (2.5-5.0); Potassium 3.2 mmol/L (3.5-5.0); Total Bilirubin 0.6 mg/dL (0.2-1.0); Total Protein 6.1 g/dL (6.4-8.9)
[2018-05-29] MEDS: KCL 20 MEQ/100 ML IVPREMIX* 20 MEQ/100 ML BAG IV SCH ×2 (15:24→17:30)
[2018-05-29] MEDS: TPN* 24 HR with Sodium Chloride Conc 23.4%* 100 MEQ, Potassium Chloride TPN 50 MEQ, Pot... CENT\\PICC SCH ×13 (16:57)
[2018-05-29] MEDS: Tamsulosin CAP* 0.4 MG PO SCH (21:00)
[2018-05-30] MEDS: Piperacillin/Tazobactam VIAL*) 3.375 GM in NS 0.9% 100 ML* 100 ML IVPB SCH ×4 (02:12→20:37)
[2018-05-30] MEDS: Levothyroxine TAB* 125 MCG TAB NG TUBE SCH (05:23)
[2018-05-30] MEDS: Heparin VIAL(*) 5000 UNITS/ML VIAL (FIVE THOUSAND) SUBCUT SCH ×3 (05:30→22:19)
[2018-05-30 05:44] LABS: BUN/Creatinine Ratio 22.7 (8-20); EGFR African American 143.6 (>60); EGFR Non-African American 118.6 (>60); Potassium 3.3 mmol/L (3.5-5.0)
[2018-05-30] MEDS: Memantine TAB* 10 MG G TUBE SCH (07:51)
[2018-05-30] MEDS: Selegiline TAB* 5 MG G TUBE SCH ×2 (07:52→12:31)
[2018-05-30] MEDS: Amantadine CAP* 100 MG SCH ×2 (07:52→12:31)
--- NOTE | 2018-05-30 08:26 | PN ---
Subjective Date of Service: 05/30/18 Interval History: Pt is more alert today than yesterday and is answering some questions. His states that he is still fairly far from baseline, stating that he was previously in control of his own medication, exercised regularly, and they grocery shopped together. Despite this, he continues to improve daily. She feels that the Neupro patches are helping. With the help of his and staff , he was able to go for a walk and do some PT exercises yesterday. Family History: Unchanged from Admission Social History: Unchanged from Admission Past Medical History: Unchanged from Admission Objective Active Medications: Acetaminophen (Tylenol Adult Liq*) 650 mg PO Q4H PRN Amantadine HCl (Symmetrel Cap*) 100 mg .SEE ORDER BID@0800,1200 [facility] Donepezil HCl (Aricept Tab*) 10 mg G TUBE BEDTIME [facility] Heparin Sodium (Porcine) (Heparin Vial(*)) 5,000 units SUBCUT Q8HR [facility] Heparin Sodium (Porcine) (Heparin Flush Picc/Ml/Cvc(*)) 1 - 3 ml FLUSH 0600, 1800 [facility]; Protocol Sodium Chloride 100 meq/Potassium Chloride 50 meq/Potassium Phosphate 20 mmole/ Calcium Gluconate 10 meq/Magnesium Sulfate 10 meq/Multivitamins 10 ml/ Trace Metals 1 ml/ Insulin Human Regular 10 units/ Dextrose 1, 000 ml/ Amino Acids 850 ml/Sterile Water 150 ml/ Fat Emulsion Intravenous 250 ml/Nutrition ( Parenteral) 2,341.7347 mls @ 97.572 mls/hr [facility]\PICC 1700 [facility]; Protocol Piperacillin Sod/Tazobactam (Sod 3.375 gm/ Sodium Chloride) 100 mls @ 200 mls/ hr IVPB Q6H [facility] Ibuprofen (Motrin Liq Adult*) 600 mg PO Q6H PRN Levothyroxine Sodium (Synthroid Tab*) 125 mcg NG TUBE 0600 [facility] Lorazepam (Ativan Inj*) 0.5 mg IV PUSH Q6H PRN Memantine (Namenda Tab*) 10 mg G TUBE BID [facility] Ondansetron HCl (Zofran Inj*) 4 mg IV Q6H PRN Selegiline HCl (Eldepryl Tab*) 5 mg G TUBE BID@0800,1200 [facility] Tamsulosin HCl (Flomax Cap*) 0.4 mg PO BEDTIME [facility] Vital Signs: Temp Pulse Resp BP Pulse Ox 98.2 F 63 17 133/71 97 05/30/18 07:38 05/30/18 07:38 05/30/18 08:00 05/30/18 07:38 05/30/18 07:38 Oxygen Devices in Use Now: None Appearance: Pt is alert, oriented to self, and is answering questions. He is occasionally confused and expresses frustration at times. Eyes: No Scleral Icterus Ears/Nose/Mouth/Throat: NL Teeth, Lips, Gums, - Neck: NL Appearance and Movements; NL JVP, Trachea Midline Respiratory: Symmetrical Chest Expansion and Respiratory Effort, Clear to Auscultation Cardiovascular: NL Sounds; No Murmurs; No JVD, RRR, No Edema Abdominal: - - Bowel sounds hypoactive, but present in all 4 quadrants; nontender to light-moderate palpation; soft, distended abdomen; ostomy intact with no output Extremities: No Edema, No Clubbing, Cyanosis Neurological: - - Oriented to self Lines/Tubes/Other Access: Clean, Dry and Intact Naso-enteral Tube - NG tube intact and secured Result Diagrams: 05/28/18 05:50 05/30/18 05:15 Microbiology and Other Data: Microbiology 05/21/18 14:00 Skin and Soft Tissue MRSA/MSSA (PCR - Final Misc Source (See Comment) Mrsa Negative S.aureus Negative Gram Stain - Final Wound Culture - Preliminary Escherichia Coli Pseudomonas Aeruginosa 05/21/18 14:00 Anaerobic Culture - Preliminary Body Fluid - Peritoneal Bacteroides Vulgatus 05/21/18 11:10 Urine Culture - Final Urine No Growth (<1,000 CFU/mL) Assess/Plan/Problems-Billing Assessment: This is a 73 yr old man with bowel perforation, s/p colectomy and ostomy, history of Parkinsons Disease with dementia that has been complicated by acute infection, surgery and off medications 2/2 NPO status. - Patient Problems (1) Perforated diverticulum Comment: - POD9 sigmoid colectomy, end colostomy, and Rito pouch - Peritoneal fluid culture growing E. coli, Pseudomonas aeruginosa, Bacteroides vulgatus, continue empiric Zosyn - POC as per Surgery (2) Postoperative ileus Comment: - NPO - NG tube to low intermittent suction - Ativan low dose PRN agitation, as patient has tried to pull out NG tube - Repeat TPN labs as ordered on 06/01 (3) Dementia associated with Parkinson's disease Comment: - Remains confused, this is likely a toxic metabolic encephalopthy 2/2 existing Parkinson's dementia, post-operative delerium and medications and lack of sinemet prior to surgery - Continue Neupro patches - Continue selegeline, donepezil and namenda - Ativan PRN (4) Parkinson disease Comment: - Continue Neupro; Sinemet d/c, as absorption of PO medication may be impaired - Will restart selegiline and amatadine as he is now tolerating clears (5) BPH (benign prostatic hyperplasia) Comment: - Continue flomax, will need trial to void when stable, continue orellana for now (6) Hypothyroidism Comment: - Continue levothyroxine daily (7) DVT prophylaxis Comment: - Heparin SQ per Surgery (8) Full code status Status and Disposition: Inpatient. Dispo per surgery. Continue close monitoring.
[2018-05-30] MEDS: ROTIGOTINE 2 MG TOPICAL SCH (09:36)
--- NOTE | 2018-05-30 11:38 | PN ---
Progress Note - Progress Note Date of Service: 05/30/18 Note: Surgery Progress Note: S: Patient appears cooperative today and can answer some simple questions. Per nurse no significant changes. No colostomy output Objective: Laboratory Last Values WBC 8.5 10^3/ul (3.5-10.8) 05/28/18 05:50 RBC 3.76 10^6/ul (4.00-5.40) L 05/28/18 05:50 Hgb 11.4 g/dl (14.0-18.0) L 05/28/18 05:50 Hct 33 % (42-52) L 05/28/18 05:50 MCV 89 fL (80-94) 05/28/18 05:50 MCH 30 pg (27-31) 05/28/18 05:50 MCHC 34 g/dl (31-36) 05/28/18 05:50 RDW 14 % (10.5-15) 05/28/18 05:50 Plt Count 245 10^3/ul (150-450) 05/28/18 05:50 MPV 7.6 fL (7.4-10.4) 05/28/18 05:50 Neut % (Auto) 75.5 % 05/28/18 05:50 Lymph % (Auto) 14.8 % 05/28/18 05:50 [place] % (Auto) 8.0 % 05/28/18 05:50 Eos % (Auto) 1.0 % 05/28/18 05:50 Baso % (Auto) 0.7 % 05/28/18 05:50 Absolute Neuts (auto) 6.4 10^3/ul (1.5-7.7) 05/28/18 05:50 Absolute Lymphs (auto) 1.3 10^3/ul (1.0-4.8) 05/28/18 05:50 Absolute Monos (auto) 0.7 10^3/ul (0-0.8) 05/28/18 05:50 Absolute Eos (auto) 0.1 10^3/ul (0-0.6) 05/28/18 05:50 Absolute Basos (auto) 0.1 10^3/ul (0-0.2) 05/28/18 05:50 Absolute Nucleated RBC 0 10^3/ul 05/28/18 05:50 Nucleated RBC % 0 05/28/18 05:50 INR (Anticoag Therapy) 1.21 (0.77-1.02) H 05/21/18 09:45 APTT 29.4 seconds (26.0-36.3) 05/21/18 09:45 Sodium 139 mmol/L (135-145) 05/30/18 05:15 Potassium 3.3 mmol/L (3.5-5.0) L 05/30/18 05:15 Chloride 107 mmol/L (101-111) 05/30/18 05:15 Carbon Dioxide 26 mmol/L (22-32) 05/30/18 05:15 Anion Gap 6 mmol/L (2-11) 05/30/18 05:15 BUN 15 mg/dL (6-24) 05/30/18 05:15 Creatinine 0.66 mg/dL (0.67-1.17) L 05/30/18 05:15 Est GFR ( Amer) 143.6 (>60) 05/30/18 05:15 Est GFR (Non-Af Amer) 118.6 (>60) 05/30/18 05:15 BUN/Creatinine Ratio 22.7 (8-20) H 05/30/18 05:15 Glucose 100 mg/dL (70-100) 05/30/18 05:15 POC Glucose (mg/dL) 148 mg/dL (70-100) H 05/30/18 02:14 Lactic Acid 1.3 mmol/L (0.5-2.0) 05/21/18 09:45 Calcium 8.0 mg/dL (8.6-10.3) L 05/30/18 05:15 Phosphorus 2.8 mg/dL (2.5-5.0) 05/29/18 12:12 Magnesium 1.8 mg/dL (1.9-2.7) L 05/29/18 12:12 Total Bilirubin 0.60 mg/dL (0.2-1.0) 05/29/18 12:12 AST 77 U/L (13-39) H 05/29/18 12:12 ALT 52 U/L (7-52) 05/29/18 12:12 Alkaline Phosphatase 98 U/L (34-104) 05/29/18 12:12 Ammonia 46 mcmol/L (16-53) 05/21/18 09:45 Troponin I 0.02 ng/mL (<0.04) 05/21/18 09:45 C-Reactive Protein 244.86 mg/L (<8.01) H 05/21/18 09:45 B-Natriuretic Peptide 34 pg/mL (<=100) 05/21/18 09:45 Total Protein 6.1 g/dL (6.4-8.9) L 05/29/18 12:12 Albumin 3.4 g/dL (3.2-5.2) 05/29/18 12:12 Globulin 2.7 g/dL (2-4) 05/29/18 12:12 Albumin/Globulin Ratio 1.3 (1-3) 05/29/18 12:12 Prealbumin 18 mg/dL (18-38) 05/29/18 12:12 Triglycerides 117 mg/dL 05/29/18 12:12 Cholesterol 121 mg/dL 05/29/18 12:12 Lipase 14 U/L (11.0-82.0) 05/21/18 09:45 Urine Color Yellow 05/28/18 08:30 Urine Appearance Clear 05/28/18 08:30 Urine pH 8.0 (5-9) 05/28/18 08:30 Ur Specific [place] 1.026 (1.010-1.030) 05/28/18 08:30 Urine Protein Negative (Negative) 05/28/18 08:30 Urine Ketones Negative (Negative) 05/28/18 08:30 Urine Blood Negative (Negative) 05/28/18 08:30 Urine Nitrate Negative (Negative) 05/28/18 08:30 Urine Bilirubin Negative (Negative) 05/28/18 08:30 Urine Urobilinogen Negative (Negative) 05/28/18 08:30 Ur Leukocyte Esterase Negative (Negative) 05/28/18 08:30 Urine WBC (Auto) Trace(0-5/hpf) (Absent) 05/21/18 11:10 Urine RBC (Auto) 2+(6-10/hpf) (Absent) A 05/21/18 11:10 Ur Squamous Epith Cells Present (Absent) A 05/21/18 11:10 Urine Bacteria Absent (Absent) 05/21/18 11:10 Hyaline Casts Present (Absent) A 05/21/18 11:10 Granular Casts Present (Absent) A 05/21/18 11:10 Urine Glucose Negative (Negative) 05/28/18 08:30 Vitals signs: Temp Pulse Resp BP Pulse Ox 98.2 F 63 17 133/71 97 05/30/18 07:38 05/30/18 07:38 05/30/18 08:00 05/30/18 07:38 05/30/18 07:38 Intake & Output 05/29/18 05/30/18 05/30/18 22:59 06:59 14:59 Intake Total 2328 125 125 Output Total 550 520 200 Balance 1778 -395 -75 Weight 222 lb 9.6 oz Intake: IV Fluids 125 20 ABX - ZOSYN 105 NS (0.9%) 20 20 IVPB 105 ABX - ZOSYN 105 TPN/PPN 2328 Oral 0 Output: NG Tube Drainage Amount 350 320 Urine 200 200 200 Other: Estimated Void Large Small # Voids 2 1 NGT output X 24 hours: 1 liter Colostomy: 0 Abx: Zosyn Physical exam: abdomen soft, distended, minimally tender, incision with intermittent gaps and packing changes, no erythema, ostomy pink no stool or gas in bag A/P: 73 M post op Hartmanns procedure 05/21 for perforated diverticulitis, with ileus, improving neurologic status - Continue TPN and NPO, NGT output still fairly high and patient remains distended with no ostomy output. NGT for administration of medications and should be clamped after meds for a period of time prior to being on suction again - Physical therapy - Continue abx for intraabdominal infection, patient has had no fevers and last WBC from 05/28 normal
[2018-05-30] MEDS: TPN* 24 HR with Sodium Chloride Conc 23.4%* 100 MEQ, Potassium Chloride TPN 50 MEQ, Pot... CENT\\PICC SCH ×13 (16:55)
[2018-05-30] MEDS ORDERED: Acetaminophen ADULT LIQ* 650 MG/20.3 ML UDC NG TUBE PRN (20:25)
[2018-05-30] MEDS ORDERED: Tamsulosin CAP* 0.4 MG SCH (20:29)
[2018-05-30] MEDS: Memantine TAB* 10 MG NG TUBE SCH (20:36)
[2018-05-30] MEDS: Donepezil TAB* 5 MG NG TUBE SCH (20:37)
[2018-05-30] MEDS: Tamsulosin CAP* 0.4 MG PO SCH ×2 (20:37→21:11)
[2018-05-31] MEDS: Piperacillin/Tazobactam VIAL*) 3.375 GM in NS 0.9% 100 ML* 100 ML IVPB SCH ×3 (02:09→15:04)
[2018-05-31] MEDS: Heparin VIAL(*) 5000 UNITS/ML VIAL (FIVE THOUSAND) SUBCUT SCH ×3 (05:55→22:27)
[2018-05-31] MEDS: Levothyroxine TAB* 125 MCG TAB NG TUBE SCH (06:11)
--- NOTE | 2018-05-31 09:36 | PN ---
Progress Note - Progress Note Date of Service: 05/31/18 SOAP: Subjective:POD#10 s/p Rito's for perf'd divertic;Parkinson's more responsive,denies pain,tries to answer questions [] Objective: Vital Signs Temp 98.7 F 05/31/18 07:32 Pulse 65 05/31/18 07:32 Resp 20 05/31/18 07:32 BP 125/70 05/31/18 07:32 Pulse Ox 97 05/31/18 07:32 Intake & Output 05/30/18 05/31/18 05/31/18 18:59 06:59 18:59 Intake Total 6550 0 Output Total 775 1050 125 Balance 5775 -1050 -125 Weight 221 lb 14.4 oz Intake: IV Fluids 20 NS (0.9%) 20 IVPB 105 ABX - ZOSYN 105 TPN/PPN 6425 Oral 0 0 Output: NG Tube Drainage Amount 200 650 Urine 575 400 125 Colostomy 0 Other: Estimated Void Small lungs:clear anteriorly;heart:RRR;abd:few bs,distended but not firm,midline incision clean and intact with intermittent lili,no erythema;flushed with NS and repacked with 1/4"plain nugauze in distal openings;ostomy with scant brown stool,no obvious flatus;ext:SCDs on,no calf tenderness [] Assessment:more alert and less agitated;ileus persists;getting OOB and has walked with in halls [] Plan:continue TPN,NG decompression,PT,await increased GI function []
[2018-05-31] MEDS: Memantine TAB* 10 MG NG TUBE SCH ×2 (09:50→21:14)
[2018-05-31] MEDS: Ibuprofen ADULT LIQ* 600 MG/30 ML UDC NG TUBE PRN ×2 (09:50→21:15)
[2018-05-31] MEDS: Selegiline TAB* 5 MG NG TUBE SCH ×2 (09:50→12:55)
[2018-05-31] MEDS: Amantadine CAP* 100 MG SCH ×2 (09:51→12:55)
[2018-05-31] MEDS: ROTIGOTINE 2 MG TOPICAL SCH (10:18)
--- NOTE | 2018-05-31 11:07 | PN ---
Subjective Date of Service: 05/31/18 Interval History: Mr. Zepeda is confused but offers no complaint today. Nursing staff report that he is doing well and has not had any complaints. Family History: Unchanged from Admission Social History: Unchanged from Admission Past Medical History: Unchanged from Admission Objective Active Medications: Acetaminophen (Tylenol Adult Liq*) 650 mg NG TUBE Q4H PRN Amantadine HCl (Symmetrel Cap*) 100 mg .SEE ORDER BID@0800,1200 [facility] Donepezil HCl (Aricept Tab*) 10 mg NG TUBE BEDTIME [facility] Heparin Sodium (Porcine) (Heparin Vial(*)) 5,000 units SUBCUT Q8HR [facility] Heparin Sodium (Porcine) (Heparin Flush Picc/Ml/Cvc(*)) 1 - 3 ml FLUSH 0600, 1800 ROMEO; Protocol Sodium Chloride 100 meq/Potassium Chloride 50 meq/Potassium Phosphate 20 mmole/ Calcium Gluconate 10 meq/Magnesium Sulfate 10 meq/Multivitamins 10 ml/ Trace Metals 1 ml/ Insulin Human Regular 10 units/ Dextrose 1, 000 ml/ Amino Acids 850 ml/Sterile Water 150 ml/ Fat Emulsion Intravenous 250 ml/Nutrition ( Parenteral) 2,341.7347 mls @ 97.572 mls/hr CENT\PICC 1700 ROMEO; Protocol Piperacillin Sod/Tazobactam (Sod 3.375 gm/ Sodium Chloride) 100 mls @ 200 mls/ hr IVPB Q6H [facility] Ibuprofen (Motrin Liq Adult*) 600 mg NG TUBE Q6H PRN Levothyroxine Sodium (Synthroid Tab*) 125 mcg NG TUBE 0600 ROME[facility] Lorazepam (Ativan Inj*) 0.5 mg IV PUSH Q6H PRN Memantine (Namenda Tab*) 10 mg NG TUBE BID [facility] Ondansetron HCl (Zofran Inj*) 4 mg IV Q6H PRN Selegiline HCl (Eldepryl Tab*) 5 mg NG TUBE BID@0800,1200 [facility] Tamsulosin HCl (Flomax Cap*) 0.4 mg PO BEDTIME [facility] Vital Signs: Temp Pulse Resp BP Pulse Ox 98.7 F 65 20 125/70 97 05/31/18 07:32 05/31/18 07:32 05/31/18 08:00 05/31/18 07:32 05/31/18 07:32 Oxygen Devices in Use Now: None Appearance: Male sitting up in chair in NAD Eyes: No Scleral Icterus Ears/Nose/Mouth/Throat: Mucous Membranes Moist Neck: Trachea Midline Respiratory: Symmetrical Chest Expansion and Respiratory Effort, Clear to Auscultation Cardiovascular: NL Sounds; No Murmurs; No JVD, No Edema Abdominal: - - soft, mildly distended, BS hypoactive Extremities: No Edema Skin: No Rash or Ulcers Neurological: NL Muscle Strength and Tone, - - Alert and oriented to self, repeatedly asking when his will arrive Result Diagrams: 05/28/18 05:50 05/30/18 05:15 Microbiology and Other Data: . Assess/Plan/Problems-Billing Assessment: Mr. Zepeda is a 73 yr old man with bowel perforation, s/p colectomy and ostomy, history of Parkinson's Disease with dementia that has been complicated by acute infection and post-operative ileus. - Patient Problems (1) Perforated diverticulum Comment: - POD 10 s/p sigmoid colectomy, end colostomy, and Rito pouch - Peritoneal fluid culture growing E. coli, Pseudomonas aeruginosa, Bacteroides vulgatus. D/C zosyn, completed 10 day course. - POC as per Surgery (2) Postoperative ileus Comment: - NPO, meds via NG tube - Ativan low dose PRN agitation, as patient has tried to pull out NG tube - Repeat TPN labs as ordered on 06/01 (3) Parkinson disease Comment: - Continue Neupro; Sinemet d/c, as absorption of PO medication may be impaired - Will restart selegiline and amatadine as he is now tolerating clears (4) Dementia associated with Parkinson's disease Comment: - Remains confused, this is likely a toxic metabolic encephalopthy 2/2 existing Parkinson's dementia, post-operative delerium and medications and lack of sinemet prior to surgery - Continue Neupro patches - Continue selegeline, donepezil and namenda - Ativan PRN (5) BPH (benign prostatic hyperplasia) Comment: - Continue flomax, will need trial to void when stable, continue orellana for now (6) Hypothyroidism Comment: - Continue levothyroxine daily (7) DVT prophylaxis Comment: - Heparin SQ per Surgery (8) Full code status Comment: Status and Disposition: Inpatient. Dispo per surgery. Continue close monitoring.
[2018-05-31] MEDS: TPN* 24 HR with Sodium Chloride Conc 23.4%* 100 MEQ, Potassium Chloride TPN 50 MEQ, Pot... CENT\\PICC SCH ×13 (17:20)
[2018-05-31] MEDS: Donepezil TAB* 5 MG NG TUBE SCH (21:13)
[2018-05-31] MEDS: Tamsulosin CAP* 0.4 MG PO SCH (21:15)
[2018-06-01] MEDS: LORazepam INJ* 2 MG/ML 1 ML VIAL IV PUSH PRN ×2 (01:06→21:48)
[2018-06-01] MEDS: Levothyroxine TAB* 125 MCG TAB NG TUBE SCH (05:11)
[2018-06-01] MEDS: Heparin VIAL(*) 5000 UNITS/ML VIAL (FIVE THOUSAND) SUBCUT SCH ×3 (05:31→21:16)
[2018-06-01 06:01] LABS: Albumin 3.1 g/dL (3.2-5.2); Albumin/Globulin Ratio 1.2 (1-3); BUN/Creatinine Ratio 23.3 (8-20); Calcium 7.9 mg/dL (8.6-10.3); EGFR African American 160.2 (>60); EGFR Non-African American 132.4 (>60); Globulin 2.5 g/dL (2-4); Magnesium 1.9 mg/dL (1.9-2.7); Phosphorus 2.8 mg/dL (2.5-5.0); Potassium 3.3 mmol/L (3.5-5.0); Total Bilirubin 0.5 mg/dL (0.2-1.0); Total Protein 5.6 g/dL (6.4-8.9)
[2018-06-01] MEDS ORDERED: KCL 20 MEQ/100 ML IVPREMIX* 20 MEQ/100 ML BAG IV ONE (08:24)
--- NOTE | 2018-06-01 09:35 | PN ---
Progress Note - Progress Note Date of Service: 06/01/18 SOAP: Subjective: Pt denies pain. Per had walked yesterday. Per RN NGT self-d/c'd, but not much o/p recorded. No flatus reported. Objective: Vital Signs Temp 98.1 F 06/01/18 08:09 Pulse 67 06/01/18 08:09 Resp 16 06/01/18 08:09 BP 113/66 06/01/18 08:09 Pulse Ox 97 06/01/18 08:09 Gen: lying in bed; NAD Abd: +BS; distended, soft; incision clean and dry; no erythema; ostomy pink and on digital exam is patent with brown stool. No abdominal tenderness. Intake & Output 05/31/18 06/01/18 06/01/18 18:59 06:59 18:59 Intake Total 2488 1161 0 Output Total 580 300 Balance 1908 861 0 Weight 226 lb 8 oz Intake: IV Fluids 20 NS (0.9%) 20 IVPB 105 ABX - ZOSYN 105 TPN/PPN 2363 1161 Oral 0 0 Output: NG Tube Drainage Amount 0 100 Urine 580 200 Colostomy 0 0 Other: Estimated Void Small Large # Voids 1 Laboratory Results - last 24 hr 05/31/18 05/31/18 05/31/18 10:42 15:06 18:08 Sodium Potassium Chloride Carbon Dioxide Anion Gap BUN Creatinine Est GFR ( Amer) Est GFR (Non-Af Amer) BUN/Creatinine Ratio Glucose POC Glucose (mg/dL) 140 H 131 H 117 H Calcium Phosphorus Magnesium Total Bilirubin AST ALT Alkaline Phosphatase Total Protein Albumin Globulin Albumin/Globulin Ratio Prealbumin Triglycerides Cholesterol 05/31/18 06/01/18 06/01/18 22:24 01:59 05:30 Sodium 135 Potassium 3.3 L Chloride 105 Carbon Dioxide 24 Anion Gap 6 BUN 14 Creatinine 0.60 L Est GFR ( Amer) 160.2 Est GFR (Non-Af Amer) 132.4 BUN/Creatinine Ratio 23.3 H Glucose 115 H POC Glucose (mg/dL) 122 H 134 H Calcium 7.9 L Phosphorus 2.8 Magnesium 1.9 Total Bilirubin 0.50 AST 71 H ALT 108 H Alkaline Phosphatase 151 H Total Protein 5.6 L Albumin 3.1 L Globulin 2.5 Albumin/Globulin Ratio 1.2 Prealbumin 17 L Triglycerides 117 Cholesterol 103 Assessment: POD#10 s/p Rito's for perf'd divertic;Parkinson's. Stable. Plan: Leave NGT out and start clears. Cont TPN. Appreciate Hospitalist f/u.
[2018-06-01] MEDS: Selegiline TAB* 5 MG NG TUBE SCH ×2 (10:23→12:14)
[2018-06-01] MEDS: Memantine TAB* 10 MG NG TUBE SCH (10:23)
[2018-06-01] MEDS: Amantadine CAP* 100 MG SCH ×2 (10:24→12:15)
[2018-06-01] MEDS: ROTIGOTINE 2 MG TOPICAL SCH (10:31)
--- NOTE | 2018-06-01 14:32 | PN ---
Subjective Date of Service: 06/01/18 Interval History: Mr. Zepeda remains very confused today and is not able to offer much subjective data. He c/o leg pain, but is unable to further describe the pain. He offers no other complaints. Denies SOB or CP. Family History: Unchanged from Admission Social History: Unchanged from Admission Past Medical History: Unchanged from Admission Objective Active Medications: Acetaminophen (Tylenol Adult Liq*) 650 mg NG TUBE Q4H PRN FEVER/PAIN Amantadine HCl (Symmetrel Cap*) 100 mg .SEE ORDER BID@0800,1200 [facility] Donepezil HCl (Aricept Tab*) 10 mg NG TUBE BEDTIME [facility] Heparin Sodium (Porcine) (Heparin Vial(*)) 5,000 units SUBCUT Q8HR [facility] Heparin Sodium (Porcine) (Heparin Flush Picc/Ml/Cvc(*)) 1 - 3 ml FLUSH 0600, 1800 [facility]; Protocol Sodium Chloride 100 meq/Potassium Chloride 50 meq/Potassium Phosphate 20 mmole/ Calcium Gluconate 10 meq/Magnesium Sulfate 10 meq/Multivitamins 10 ml/ Trace Metals 1 ml/ Insulin Human Regular 10 units/ Dextrose 1, 000 ml/ Amino Acids 850 ml/Sterile Water 150 ml/ Fat Emulsion Intravenous 250 ml/Nutrition ( Parenteral) 2,341.7347 mls @ 97.572 mls/hr CENT\PICC 1700 [facility]; Protocol Ibuprofen (Motrin Liq Adult*) 600 mg NG TUBE Q6H PRN PAIN Levothyroxine Sodium (Synthroid Tab*) 125 mcg NG TUBE 0600 [facility] Lorazepam (Ativan Inj*) 0.5 mg IV PUSH Q6H PRN AGITATION Memantine (Namenda Tab*) 10 mg NG TUBE BID [facility] Ondansetron HCl (Zofran Inj*) 4 mg IV Q6H PRN NAUSEA Selegiline HCl (Eldepryl Tab*) 5 mg NG TUBE BID@0800,1200 [facility] Tamsulosin HCl (Flomax Cap*) 0.4 mg PO BEDTIME [facility] Vital Signs - 8 hr 06/01/18 06/01/18 06/01/18 08:09 09:00 11:45 Temperature 98.1 F 98.2 F Pulse Rate 67 76 Respiratory 16 16 18 Rate Blood Pressure 113/66 106/66 (mmHg) O2 Sat by Pulse 97 100 Oximetry Oxygen Devices in Use Now: None Appearance: Elderly male sitting in chair in NAD Eyes: No Scleral Icterus Ears/Nose/Mouth/Throat: Mucous Membranes Moist Neck: NL Appearance and Movements; NL JVP, Trachea Midline Respiratory: Symmetrical Chest Expansion and Respiratory Effort, Clear to Auscultation Cardiovascular: NL Sounds; No Murmurs; No JVD, RRR Abdominal: NL Sounds; No Tenderness; No Distention Extremities: No Edema Skin: No Rash or Ulcers, - - Surgical dressings Neurological: NL Sensation, - - Oriented to self Lines/Tubes/Other Access: Clean, Dry and Intact PICC Line Nutrition: TPN Result Diagrams: 05/28/18 05:50 06/01/18 05:30 Assess/Plan/Problems-Billing Assessment: Mr. Zepeda is a 73 yr old man with bowel perforation, s/p colectomy and ostomy, history of Parkinson's Disease with dementia that has been complicated by acute infection and post-operative ileus. - Patient Problems (1) Perforated diverticulum Code(s): K57.80 - DVTRCLI OF INTEST, PART UNSP, W PERF AND ABSCESS W/O BLEED Comment: - POD 11 s/p sigmoid colectomy, end colostomy, and Rito pouch - Peritoneal fluid culture growing E. coli, Pseudomonas aeruginosa, Bacteroides vulgatus; completed 10 day course of Zosyn - Management per Surgery (2) Postoperative ileus Code(s): K91.89 - OTH POSTPROCEDURAL COMPLICATIONS AND DISORDERS OF DGSTV SYS; K56.7 - ILEUS, UNSPECIFIED Comment: - Tolerating clears - Mild hypokalemia this morning; repleted today and will increase KCl in TPN - Calcium is 8.6 when corrected for albumin - Remains on TPN; will continue to trend electrolytes (3) Parkinson disease Code(s): G20 - PARKINSON'S DISEASE Comment: - Continue Neupro; Sinemet d/c, as absorption of PO medication may be impaired - Continue selegiline and amatadine (4) Dementia associated with Parkinson's disease Code(s): G20 - PARKINSON'S DISEASE; F02.80 - DEMENTIA IN OTH DISEASES CLASSD ELSWHR W/O BEHAVRL DISTURB Comment: - Remains confused, this is likely a toxic metabolic encephalopthy 2/2 existing Parkinson's dementia, post-operative delerium and medications and lack of sinemet prior to surgery - Continue Neupro patch, selegeline, donepezil, namenda, lorazepam (5) BPH (benign prostatic hyperplasia) Code(s): N40.0 - BENIGN PROSTATIC HYPERPLASIA WITHOUT LOWER URINRY TRACT SYMP Comment: - Continue flomax (6) Hypothyroidism Code(s): E03.9 - HYPOTHYROIDISM, UNSPECIFIED Comment: - Continue levothyroxine (7) DVT prophylaxis Code(s): WJV5414 - Comment: - Heparin SQ per Surgery (8) Full code status Code(s): Z78.9 - OTHER SPECIFIED HEALTH STATUS Comment: Status and Disposition: Inpatient, dispo per surgery. Thank you for this consultation. We will continue to follow. Attending: Anita Nowak
[2018-06-01] MEDS: TPN* 24 HR with Sodium Chloride Conc 23.4%* 100 MEQ, Potassium Chloride TPN 50 MEQ, Pot... CENT\\PICC SCH ×13 (17:42)
[2018-06-01] MEDS: Ibuprofen ADULT LIQ* 600 MG/30 ML UDC NG TUBE PRN (17:48)
[2018-06-01] MEDS ORDERED: Acetaminophen ADULT LIQ* 650 MG/20.3 ML UDC PO PRN (20:01)
[2018-06-01] MEDS ORDERED: Ibuprofen ADULT LIQ* 600 MG/30 ML UDC PO PRN (20:02)
[2018-06-01] MEDS: Tamsulosin CAP* 0.4 MG PO SCH (21:08)
[2018-06-01] MEDS: Donepezil TAB* 5 MG PO SCH (21:08)
[2018-06-01] MEDS: Memantine TAB* 10 MG PO SCH (21:08)
[2018-06-02] MEDS: Heparin VIAL(*) 5000 UNITS/ML VIAL (FIVE THOUSAND) SUBCUT SCH ×3 (06:04→21:57)
[2018-06-02 07:00] LABS: Hematocrit 33 % (42-52); Hemoglobin 10.9 g/dl (14.0-18.0); Mean Corpuscular HGB Conc 33 g/dl (31-36); Mean Corpuscular Hemoglobin 30 pg (27-31); Mean Corpuscular Volume 89 fL (80-94); Mean Platelet Volume 9.1 fL (7.4-10.4); Platelet Count 268 10^3/ul (150-450); Red Blood Count 3.65 10^6/ul (4.00-5.40); Red Cell Distribution Width 14 % (10.5-15); White Blood Count 11.4 10^3/ul (3.5-10.8)
[2018-06-02 07:29] LABS: ABS Basophils 0.1 10^3/ul (0-0.2); ABS Eosinophils 0.1 10^3/ul (0-0.6); ABS Lymphocytes 0.9 10^3/ul (1.0-4.8); ABS Monocytes 0.7 10^3/ul (0-0.8); ABS Neutrophils 9.6 10^3/ul (1.5-7.7); ABS Nucleated RBC 0 10^3/ul; Albumin 3.1 g/dL (3.2-5.2); BUN/Creatinine Ratio 20.3 (8-20); Calcium 7.9 mg/dL (8.6-10.3); EGFR African American 163.4 (>60); Lymphocyte % 8.2 %; Magnesium 1.9 mg/dL (1.9-2.7); Nucleated Red Blood Cells % 0; Phosphorus 2.5 mg/dL (2.5-5.0); Potassium 3.8 mmol/L (3.5-5.0); Total Bilirubin 0.4 mg/dL (0.2-1.0); Total Protein 6.1 g/dL (6.4-8.9)
[2018-06-02] MEDS: Amantadine CAP* 100 MG SCH ×2 (07:51→12:08)
[2018-06-02] MEDS: Levothyroxine TAB* 125 MCG TAB PO SCH (07:51)
[2018-06-02] MEDS: Selegiline TAB* 5 MG PO SCH ×2 (07:52→12:08)
--- NOTE | 2018-06-02 08:10 | PN ---
Progress Note - Progress Note Date of Service: 06/02/18 SOAP: Subjective: Per and [employer] putting out large flatus. Per , pt agitated. Objective: Vital Signs Temp 98.9 F 06/02/18 07:29 Pulse 68 06/02/18 07:29 Resp 16 06/02/18 07:29 BP 134/69 06/02/18 07:29 Pulse Ox 99 06/02/18 07:29 Gen: lying in bed; eyes closed, mumbling. Abd: distended; soft; ostomy with stool and gas. Incision dry/intact. Intake & Output 06/01/18 06/02/18 06/02/18 18:59 06:59 18:59 Intake Total 1645 1317 16 Output Total 525 700 100 Balance 1120 617 -84 Weight 226 lb 8 oz Intake: TPN/PPN 1195 1167 Oral 450 150 16 Output: Urine 475 700 100 Colostomy 50 0 Other: Estimated Void Medium Large Estimated Stool Amount Small # Voids 1 1 Laboratory Results - last 24 hr 06/01/18 06/01/18 06/01/18 12:14 17:53 23:54 WBC RBC Hgb Hct MCV MCH MCHC RDW Plt Count MPV Neut % (Auto) Lymph % (Auto) [place] % (Auto) Eos % (Auto) Baso % (Auto) Absolute Neuts (auto) Absolute Lymphs (auto) Absolute Monos (auto) Absolute Eos (auto) Absolute Basos (auto) Absolute Nucleated RBC Nucleated RBC % Sodium Potassium Chloride Carbon Dioxide Anion Gap BUN Creatinine Est GFR ( Amer) Est GFR (Non-Af Amer) BUN/Creatinine Ratio Glucose POC Glucose (mg/dL) 128 H 118 H 105 H Calcium Phosphorus Magnesium Total Bilirubin AST ALT Alkaline Phosphatase Total Protein Albumin Globulin Albumin/Globulin Ratio Prealbumin Triglycerides Cholesterol 06/02/18 06/02/18 05:56 05:56 WBC 11.4 H RBC 3.65 L Hgb 10.9 L Hct 33 L MCV 89 MCH 30 MCHC 33 RDW 14 Plt Count 268 MPV 9.1 Neut % (Auto) 84.0 Lymph % (Auto) 8.2 [place] % (Auto) 6.1 Eos % (Auto) 1.0 Baso % (Auto) 0.7 Absolute Neuts (auto) 9.6 H Absolute Lymphs (auto) 0.9 L Absolute Monos (auto) 0.7 Absolute Eos (auto) 0.1 Absolute Basos (auto) 0.1 Absolute Nucleated RBC 0 Nucleated RBC % 0 Sodium 137 Potassium 3.8 Chloride 104 Carbon Dioxide 26 Anion Gap 7 BUN 12 Creatinine 0.59 L Est GFR ( Amer) 163.4 Est GFR (Non-Af Amer) 135.0 BUN/Creatinine Ratio 20.3 H Glucose 112 H POC Glucose (mg/dL) Calcium 7.9 L Phosphorus 2.5 Magnesium 1.9 Total Bilirubin 0.40 AST 57 H ALT 98 H Alkaline Phosphatase 160 H Total Protein 6.1 L Albumin 3.1 L Globulin 3.0 Albumin/Globulin Ratio 1.0 Prealbumin 17 L Triglycerides 131 Cholesterol 111 Assessment: s/p Rito. Plan: Advance diet. Cont TPN for now.
[2018-06-02] MEDS: Memantine TAB* 10 MG PO SCH ×2 (08:42→21:20)
[2018-06-02] MEDS: ROTIGOTINE 2 MG TOPICAL SCH (08:42)
[2018-06-02] MEDS ORDERED: SODIUM CHLORIDE CENT\\PICC SCH ×13 (17:00)
[2018-06-02] MEDS ORDERED: TPN CENT\\PICC SCH ×13 (17:00)
[2018-06-02] MEDS ORDERED: POTASSIUM CHLORIDE TPN CENT\\PICC SCH ×13 (17:00)
[2018-06-02] MEDS ORDERED: [UNRECOGNIZED DRUG - OTHER] CENT\\PICC SCH ×13 (17:00)
--- NOTE | 2018-06-02 17:38 | PN ---
Hospitalist Progress Note Date of Service: 06/02/18 Patient was not seen, but chart was reviewed. He is tolerating medications well and is back on all of his home medications with the exception of Sinemet, which we have replaced with Neupro patch for the time being. All medications were changed from NG to PO. Electrolytes are WNL today, so no changes to TPN.
[2018-06-02] MEDS ORDERED: LORazepam TAB(*) 0.5 MG PO PRN (20:47)
--- NOTE | 2018-06-02 20:48 | PN ---
Progress Note - Progress Note Date of Service: 06/02/18 Note: Patient pulled out PICC - was getting TPN. Will order D5 1/2 NS with 20 of KCl 75 cc/hr and will need new PICC in AM
[2018-06-02] MEDS ORDERED: D5W 1/2 NS KCl 20 Meq 1000 ML* 1,000 ML IV SCH (21:00)
[2018-06-02] MEDS: Donepezil TAB* 5 MG PO SCH (21:20)
[2018-06-02] MEDS: Tamsulosin CAP* 0.4 MG PO SCH (21:21)
[2018-06-03] MEDS: Levothyroxine TAB* 125 MCG TAB PO SCH (05:49)
[2018-06-03] MEDS: Heparin VIAL(*) 5000 UNITS/ML VIAL (FIVE THOUSAND) SUBCUT SCH ×3 (05:51→23:36)
[2018-06-03] MEDS: ROTIGOTINE 2 MG TOPICAL SCH (09:05)
[2018-06-03] MEDS: Selegiline TAB* 5 MG PO SCH ×2 (09:05→12:17)
[2018-06-03] MEDS: Amantadine CAP* 100 MG PO SCH ×2 (09:05→12:17)
[2018-06-03] MEDS: Memantine TAB* 10 MG PO SCH ×2 (09:05→20:19)
--- NOTE | 2018-06-03 09:14 | PN ---
Progress Note - Progress Note Date of Service: 06/03/18 Note: S: POD #13. PICC came out last night. He is tolerating diet reasonably well and his prealbumin is 17, so will see how he does over the next 24 -48 hrs on his own. Denies SOB. feels that he will be less confused at home; still needs to learn colostomy care. O: Vital Signs - 8 hr 06/03/18 03:23 Temperature 97.6 F Pulse Rate 70 Respiratory 16 Rate Blood Pressure 135/80 (mmHg) O2 Sat by Pulse 99 Oximetry Intake and Output Last 24 Hours 06/01/18 06/02/18 06/03/18 06/04/18 06:59 06:59 06:59 06:59 Intake Total 3649 2962 356 868 Output Total 880 1225 1570 220 Balance 2769 1737 -1214 648 Weight 226 lb 8 oz 226 lb 8 oz 224 lb 6.4 oz Intake: IV Fluids 20 868 D5 1/2NS 20KCL 868 NS (0.9%) 20 IVPB 105 ABX - ZOSYN 105 TPN/PPN 3524 2362 Oral 0 600 356 Output: NG Tube Drainage Amount 100 Urine 780 1175 1470 220 Colostomy 0 50 100 Other: Estimated Void Large Large Medium Small Estimated Stool Amount Small # Voids 1 1 1 Gen: appears comfortable Heart: reg Lungs: clear upper and anterior [place]; few crackles L base (encouraged IS use and increased ambulation) Abd: incisions ok; small amts of drainage from midline incision. BS+; ostomy active for loose stool and flatus; soft; no appreciable tenderness no labs today A: s/p Rito procedure for rupt'd diverticulitis, making progress P: colostomy teaching; ambulation; d/c planning; monitor intake
--- NOTE | 2018-06-03 18:02 | PN ---
Hospitalist Progress Note Date of Service: 06/03/18 Patient not seen but chart reviewed. Events of last night noted (re: accidental removal of PICC by patient). Per surgery notes today, patient is tolerating PO intake and is on unrestricted diet and back on PO meds. Remains on Neupro patch with good effect. Continue meds as ordered, no indication for continuation of TPN. Labs yesterday WNL. Medically stable. Will sign off, please re-consult as needed. Thank you.
[2018-06-03] MEDS: Tamsulosin CAP* 0.4 MG PO SCH (20:19)
[2018-06-03] MEDS: Donepezil TAB* 5 MG PO SCH (20:19)
[2018-06-04] MEDS: Levothyroxine TAB* 125 MCG TAB PO SCH (06:31)
[2018-06-04 07:38] VITALS: BP 126/73
--- NOTE | 2018-06-04 09:43 | PN ---
Progress Note - Progress Note Date of Service: 06/04/18 SOAP: Subjective:alert,tries to answer questions;pt states he is eating better especially foods brought from home;she feels ready to take him home;she is comfortable with ostomy care;he is walking and practiced stairs yesterday [] Objective: Vital Signs Temp 97.9 F 06/04/18 07:28 Pulse 78 06/04/18 07:28 Resp 17 06/04/18 07:28 BP 126/73 06/04/18 07:28 Pulse Ox 98 06/04/18 07:28 Intake & Output 06/03/18 06/04/18 06/04/18 18:59 06:59 18:59 Intake Total 918 450 Output Total 575 90 Balance 343 360 Intake: IV Fluids 868 D5 1/2NS 20KCL 868 Oral 50 450 Output: Urine 575 90 Other: Estimated Void Small Large # Voids 1 1 lungs:clear anterior;heart:rrr;abd:+bs,soft nondistended,ostomy with loose brown stool and flatus;midline incision C/D/I with intermittent lili;two small areas superficially open and granulating;no erythema;no drainage;ext: nontender calves [] Assessment:s/p Rito's for ruptured diverticulitis;Parkinson's;stable for discharge from surgical standpoint [] Plan:discharge home today;[facility] services arranged;office visit with Dr Padilla 03/19; will arrange followup with from neurology and for primary care;will resume all previous po meds;I spoke with our pharmacist Wilmer and he advised removing Neupro patch at bedtime tonight and resuming usual Parkinson meds.Dr Padilla updated []
[2018-06-04] MEDS: Amantadine CAP* 100 MG PO SCH ×2 (10:25→12:57)
[2018-06-04] MEDS: Memantine TAB* 10 MG PO SCH (10:25)
[2018-06-04] MEDS: Selegiline TAB* 5 MG PO SCH ×2 (10:26→12:57)
[2018-06-04] MEDS: ROTIGOTINE 2 MG TOPICAL SCH (10:26)
[2018-06-04] MEDS: Heparin VIAL(*) 5000 UNITS/ML VIAL (FIVE THOUSAND) SUBCUT SCH ×2 (10:27→14:23)
--- NOTE | 2018-06-04 19:18 | DS ---
CC: Dr. Yeager from Neurology; Dr. Rose * DISCHARGE SUMMARY: DATE OF ADMISSION: 05/21/18 DATE OF DISCHARGE: 06/04/18 ATTENDING SURGEON: Rory Padilla MD.* (DICTATED BY GERALD GRIGSBY NP) HOSPITAL COURSE: Please refer to admission history and physical for admission details. The patient is a 73-year-old male with advanced Parkinson's, who presented to the emergency room on 05/21/18 with severe generalized abdominal pain. CT of the abdomen and pelvis revealed free air; he was taken to the operating room by Dr. Padilla on 05/21/18 and underwent diagnostic laparoscopy, laparotomy, sigmoid colectomy, end colostomy, and Rito pouch for a perforated diverticulitis. His postoperative course was complicated by altered mental status, perseveration and tremors. On 05/26/18, a neuro consult was requested and Dr. Matson consulted. The patient had missed doses of his Parkinson's medications since 05/21/18 and she advised placing a nasogastric tube to administer his medications. He also had an ileus at that time and the nasogastric tube was beneficial for decompression. TPN was initiated. The hospitalist service was consulted for medical management. He gradually became more alert and his tremors decreased and he was more oriented; the nasogastric tube was removed on 06/01/18 by the patient and he was able to resume p.o. medications and advance his diet. The ostomy was functioning well and he was no longer distended. The TPN was discontinued, his electrolytes were within normal limits. He was out of bed to a chair as well as ambulating in the halls and practising stairs with physical therapy; his was bringing food from home and he was eating much better. His learned the ostomy care and was ready to take him home. The visiting nurse service will be involved; he has a followup appointment with Dr. Padilla on 06/10/18 and his will arrange followup visits with Dr. Yeager from Neurology and Dr. Rose from primary care. Dr. Padilla saw the patient this morning and was in agreement with the discharge plan and told the patient's that the ultimate plan is to reverse his colostomy in approximately 3 months. PHYSICAL EXAMINATION: General: Well developed, well nourished, in no acute distress. Vital signs are stable. Temperature 97.9, pulse 78 and regular, respiratory rate 18, O2 saturation on room air 98%, blood pressure 126/73. Lungs : Breath sounds clear anteriorly. Heart: Regular rate and rhythm. No murmurs or rubs appreciated. Abdomen: Ostomy with a pink stoma, loose brown stool and flatus in the bag; midline incision clean, dry, and intact with intermittent surgical lili. No erythema, no drainage. There are 2 small areas distally that are superficially open and granulating. The abdomen is soft , nontender and there are active bowel sounds. Extremities: No edema, nontender calves. Skin: Warm, dry, and intact. IMPRESSION: Status post Rito procedure for perforated diverticulitis; Parkinson's disease. PLAN: Discharge home today. Instructions were reviewed with the patient's . A followup visit was made for 06/10/18; he will resume all of his usual medications and may use [id number] Tylenol as needed for mild pain. TIME SPENT: 75 minutes with greater than 50% in [id number] counseling with the patient's . GERALD GRIGSBY NP [id number]/[facility] #: [id number] NEY
== END 2018-06-04 14:15 | disposition home health service (06) | DRG 329 ==
LOC: ED 08:52 → OR 15:25 → SSU 16:06
PROVIDERS: ADMIT Surgery; ATTEND Surgery
PROC: 0WJG4ZZ Inspection of Peritoneal Cavity, Percutaneous Endoscopic Approach (ICD-10-PCS; 2018-05-21)
PROC: 0DBN0ZZ Excision of Sigmoid Colon, Open Approach (ICD-10-PCS; 2018-05-21)
PROC: 05PYX3Z Removal of Infusion Device from Upper Vein, External Approach (ICD-10-PCS; 2018-05-21)
PROC: 0D1N0Z4 Bypass Sigmoid Colon to Cutaneous, Open Approach (ICD-10-PCS; principal; 2018-05-21 15:15)
PROC: 02HV33Z Insertion of Infusion Device into Superior Vena Cava, Percutaneous Approach (ICD-10-PCS; 2018-05-27)
PROC: 3E0336Z Introduction of Nutritional Substance into Peripheral Vein, Percutaneous Approach (ICD-10-PCS; 2018-05-28)
DX: K57.20 Diverticulitis of large intestine with perforation and abscess without bleeding (principal); G92 Toxic encephalopathy; K56.7 Ileus, unspecified; R18.8 Other ascites; F05 Delirium due to known physiological condition; N39.0 Urinary tract infection, site not specified; R63.0 Anorexia; G20 Parkinson's disease; K59.00 Constipation, unspecified; K57.90 Diverticulosis of intestine, part unspecified, without perforation or abscess without bleeding; N40.0 Benign prostatic hyperplasia without lower urinary tract symptoms; E03.9 Hypothyroidism, unspecified; M54.5 Low back pain; G89.29 Other chronic pain; K40.90 Unilateral inguinal hernia, without obstruction or gangrene, not specified as recurrent; F41.9 Anxiety disorder, unspecified; E07.9 Disorder of thyroid, unspecified; R41.82 Altered mental status, unspecified; F02.80 Dementia in other diseases classified elsewhere, unspecified severity, without behavioral disturbance, psychotic disturbance, mood disturbance, and anxiety; B96.20 Unspecified Escherichia coli [E. coli] as the cause of diseases classified elsewhere; B96.5 Pseudomonas (aeruginosa) (mallei) (pseudomallei) as the cause of diseases classified elsewhere; E87.6 Hypokalemia; Z72.89 Other problems related to lifestyle; Z87.440 Personal history of urinary (tract) infections; Z82.49 Family history of ischemic heart disease and other diseases of the circulatory system; Z80.1 Family history of malignant neoplasm of trachea, bronchus and lung; Z53.31 Laparoscopic surgical procedure converted to open procedure; Z68.33 Body mass index [BMI] 33.0-33.9, adult
CPT/HCPCS: 36415; 71045; 74018; 74176; 80048; 80053; 81003; 81015; 82140; 82465; 83605; 83690; 83735; 83880; 84100; 84134; 84478; 84484; 85025; 85610; 85730; 86140; 87070; 87073; 87076; 87077; 87086; 87186; 87205; 87640; 87641; 88307; 93005; 99283; A9270-GY; C1751; C1776; G8987-GO-CM; G8988-GO-CJ; J0690; J1100; J1644; J2060; J2250; J2270; J2405; J2543; J2704; J2710; J3010; J3480

== ENCOUNTER 2018-08-31 05:41 | Inpatient (IN) | payer OTHER, MEDICARE ==
--- NOTE | 2018-08-20 18:17 | HP ---
CC: Dr. Rose; Dr. Charly Yeager * PREOPERATIVE HISTORY AND PHYSICAL: DATE OF ADMISSION: 08/31/18 This patient is scheduled for AA admission by Dr. Padilla on 08/31/18. DATE OF PREOPERATIVE HISTORY AND PHYSICAL EXAMINATION: 08/20/18 ATTENDING SURGEON: Dr. Rory Padilla * (dictated by Wendy Grigsby NP). CHIEF COMPLAINT: Need for reversal of colostomy. HISTORY OF PRESENT ILLNESS: The patient is a 73-year-old male with advanced Parkinson disease, who is known to Dr. Padilla from May 2018 when the patient underwent laparotomy, sigmoid colectomy, end colostomy and Rito pouch for perforated diverticulitis. He has been doing very well at home, he has a good appetite, and his weight is stable. His assists him with colostomy care. He has been exercising 5 days a week for 30 minutes on a stationary recumbent bike. He is also followed by Dr. Yeager from Neurology and the patient's states that Dr. Yeager will arrange for Sinemet patches in the perioperative period to stabilize the Parkinson symptoms. Today, Dr. Padilla describes the nature of the surgical procedure, which will be laparoscopy and reversal of colostomy. He discussed the nature of the procedure, the relevant risks and benefits, the possibility of an open surgery and also reviewed the typical hospitalization. I instructed the patient on a preoperative bowel cleansing prep consisting of clear liquids, CoLyte laxative, neomycin, and Flagyl tablets to be taken on the day before surgery. The patient and his have had a chance to ask questions and stated that they understand the information and are satisfied with the answers given to their questions. The patient will sign surgical consent on the day of surgery. 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 PAST SURGICAL HISTORY: On 05/21/18, laparotomy, sigmoid colectomy, end colostomy with Rito pouch for perforated diverticulitis by Dr. Padilla; open right inguinal hernia repair in 2016; decompressive lumbar surgery in 2013 and right ankle surgery and appendectomy many years ago. CURRENT MEDICATIONS: 1. Donepezil 10 mg p.o. daily. 2. Namenda XR 28 mg p.o. daily. 3. Carbidopa/levodopa 25/100 mg 1/2 tablet 7 times a day. 4. Flomax 0.4 mg 1 tablet daily. 5. Selegiline 5 mg p.o. in the morning and at noon. 6. Amantadine 100 mg p.o. b.i.d. 7. Levothyroxine 125 mcg daily. 8. Myrbetriq 25 mg daily. 9. Acetaminophen 500 mg 2 tablets q.6 hours as needed. ALLERGIES: No known drug allergies. 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 He denies use of tobacco and on average drinks half a glass of wine daily. FAMILY HISTORY: No known anesthesia problems, bleeding tendencies, or clotting disorders. The patient's mother is alive and well at age 96. REVIEW OF SYSTEMS: Constitutional: No fevers, chills, excessive fatigue, or weight loss. Endocrine: No diabetes. He is on thyroid replacement for hypothyroidism. Hematologic: No easy bruising or bleeding. No history of blood transfusions. General: No previous anesthesia complications. No history of deep vein thrombosis or pulmonary embolism. Respiratory: No dyspnea on exertion. No chronic cough. Cardiovascular: No anginal chest pain. No palpitations. No history of myocardial infarction. Genitourinary: No dysuria. Musculoskeletal: He uses a cane for leg weakness related to Parkinson disease. Integumentary: No chronic rashes or skin changes. Neurologic: He does have focal leg weakness, decreased facial expression and a very soft voice related to Parkinson disease, but today was more talkative and is alert and oriented. PHYSICAL EXAMINATION GENERAL SURVEY: The patient is a 73-year-old male, well developed, well nourished, in no acute distress. VITAL SIGNS: Height 69 inches, weight 175 pounds, body mass index 25.8. Blood pressure 122/66, pulse 72 and regular, respiratory rate 16, temperature 96.6 tympanic. HEENT: Benign. NECK: Supple. No cervical lymphadenopathy. No thyromegaly. No carotid bruits. LUNGS: Breath sounds bilaterally clear and equal. HEART: Regular rate and rhythm. No murmurs or rubs appreciated. ABDOMEN: Active bowel sounds. Colostomy, left mid abdomen, with soft light brown stool and gas in the bag. Well-healed midline incision. Nondistended and nontender throughout. No obvious umbilical or incisional hernia. BACK: Well-healed surgical scar. No CVA tenderness. GENITALIA: Exam deferred. RECTAL: Exam deferred. EXTREMITIES: Warm without edema or skin ulceration. NEUROLOGIC: Alert, oriented x3; speech is clear, but voice is very soft. Decreased facial expression. He uses a cane for stability as he does have focal leg weakness. SKIN: Warm, dry, intact. IMPRESSION: 1. Need for reversal of colostomy; history of perforated diverticulitis. 2. Parkinson's disease. PLAN: AA admission to Dr. Padilla' service on 08/31/18, for laparoscopy; reversal of colostomy. The patient will take a bowel cleansing prep on the day before surgery consisting of clear liquids, CoLyte laxative, neomycin, and Flagyl. He will be seeing Dr. Yeager from neurology on Thursday, , and hopefully arrangements will be made for a Sinemet patch to be used in the perioperative period to help control Parkinson symptoms. TIME SPENT: 60 minutes with greater than 50% in [id number] history-taking, patient counseling and coordination of care. GERALD GRIGSBY NP [id number]/[facility] #: [id number] NEY
[~2018-08-31 05:41] MED LIST changes: -Acetaminophen TAB* 325 MG PO PRN; -Buffered Lidocaine 1% SYR 3ML* 3 ML/SYR SYRINGE INTRADERM ONE; -Buffered Lidocaine 1% SYR 3ML* 3 ML/SYR SYRINGE ONE; +Buffered Lidocaine 1% SYRIN* 1 ML/SYRINGE INTRADERM ONE; -Bupivacaine 0.5% W/EPI SDV* 30 ML VIAL ONE; +ERTApenem(*) 1 GM in NS 0.9% 50 ML* 50 ML IVPB SCH; -Lidocaine 1% INJ* 10 MG/ML 30 ML SDV ONE; -Lidocaine 2% MPF* 2 ML VIAL ONE; -Propofol* 10 MG/ML 20 ML BTL IV PUSH ONE; -ceFAZolin 2 GM PREMIX (*) 2 GM/50 ML BAG IVPB ONE; -fentaNYL* 50 MCG/ML 2 ML VIAL (100 MCG VIAL) ONE; -traMADol TAB* 50 MG PO PRN
--- OUTSIDE RECORDS SUMMARY | 2018-08-31 05:46 | XMS REPORT | Continuity of Care Document ---
:1945 External Reference #:[id number] Author Name MtFaiza abdi Care Team Providers Name Role Phone Leroy Rose MD Primary Care Physician Unavailable Payers Date Identification Numbers Payment Provider Subscriber Policy Number: [id number] [employer] Griselda Caryl [employer] Number: [id number] [address] PayID: [id number] [place] [address] Advance Directives Description No Information Available Problems Date Description Provider Status Onset: 11/14/2014 Parkinson's disease Jessi Deleon M.D. Active Onset: 11/14/2014 Memory impairment Jessi Deleon M.D. Active Onset: 11/13/2017 REM sleep behavior disorder Charly Yeager M.D. Active Onset: 11/13/2017 Dysphagia Charly Yeager M.D. Active Onset: 11/13/2017 Moderate dementia Charly Yeager M.D. Active Family History Description No Information Available Social History Type Date Description Comments Sex Unknown Hand Dominance Right-handed ETOH Use Occasionally consumes 1-2 glasses of wine wine per week Tobacco Use Start: Unknown Patient has never smoked Recreational Drug Use Denies Drug Use Smoking Status Reviewed: 08/20/18 Patient has never smoked Allergies, Adverse Reactions, Alerts Description No Known Drug Allergies Medications Medication Date Status Form Strength Qnty SIG Indications Ordering Provider Colyte With 08/21/19 Active Solution 240gm 4000m take as Wendy B. Flavor Packs 19 Rec l directed [place], on the [employer] day before surgery Neomycin 08/21/19 Active Tablets 500mg 6tabs 2 tabs at Wendy B. Sulfate 19 1pm and [place], 7pm on [employer] the day before surgery and 2 tabs at 6am on the day of surgery Flagyl 08/21/19 Active Tablets 500mg 3tabs 1 Tab AT Wendy B. 19 1PM And [place], 7PM On [employer] The Day Before Surgery And 1 Tab AT 6Am On The Day Of Surgery Donepezil HCL 07/23/19 Active Tablets 10mg 90tab 1 by R41.3 Charly 19 s em Yeager M.D. every day Namenda XR 04/28/20 Active Caps ER 28mg 90cap 1 by Charly 17 24HR s em Yeager M.D. every day Carbidopa-Levo 09/05/19 Active Tablets 25-100mg 315ta 1/2 tab Charly marsh 15 bs by em Yeager M.D. 7x dailly Amantadine HCL 11/04/19 Active Capsules 100mg 180ca 1 by Charly Yeager M.D. twice a day Selegiline HCL 11/04/19 Active Capsules 5mg 180ca 1 cap by Charly Yeager M.D. the in the morning and noon Flomax 11/04/19 Active Capsules 0.4mg 90cap 1 po qd Jessi Deleon M.D. Levothyroxine Active Tablets 125mcg 30tab 1 po qd Unknown Sodium 00 s Myrbetriq Active Tablets 25mg once Unknown 00 ER 24HR daily- started 11/12/17 Acetaminophen Active Tablets 500mg 2 every 6 Unknown 00 hours as needed Tramadol HCL 06/05/19 Hx Tablets 50mg 14tab 1 tab by Carrie Gaxiola 17 Jason s em Jimenez MD 11/13/19 every 6 18 hours as needed for moderate pain Sertraline HCL 05/21/20 Hx Tablets 25mg 60tab 1-2 tabs F41.9 Jessi Mccollum 16 - s by em Deleon, 03/07/20 every day Iván 18 Klonopin 05/21/20 Hx Tablets 0.5mg 60tab 1/2- 1 F41.9 Jessi Mccollum 16 - s andrew Deleon, 03/07/20 by mouth M.D. 18 as needed Donepezil HCL 04/12/20 Hx Tablets 5mg 180ta 2 by Erika.Hedy Mccollum 15 - bs mouth at [facility], 07/23/19 at M.D. 19 bedtime Namenda XR 03/08/20 Hx Caps ER 28mg 90cap 1 by Taisha Mccollum 14 - 24HR s mouth Pancho, Unknown every day M.D. Propranolol 03/03/20 Hx Tablets 10mg 30tab 1 tab by Jessi Mccollum HCL 13 - s mouth as Pancho, 03/01/20 needed M.D. 14 prn Celebrex 11/04/19 Hx Capsules 50mg 1 po qd Jessi Mccollum 13 - [place], 07/25/19 M.DHiral 14 Carbidopa/Levo 11/04/19 Hx Tablets 25-100mg 360ta 1/2 tab Jessi marsh 13 - bs by mouth [facility], 09/05/19 8 times M.D. 15 per day as directed Namenda 06/08/19 Hx Tablets 10mg 180ta 1 tab by Jorge Krueger 13 - bs mouth Riva, 06/29/19 twice a M.D. 15 day Tylenol Extra Hx Tablets 500mg 100ta 1 tab po Unknown Strength 00 - bs bid prn 06/29/19 15 Lyrica Hx Capsules 50mg 10cap 1 by Unknown 00 - s mouth 03/01/20 twice a 14 day Celebrex Hx Capsules 100mg 1 cap po Unknown 00 - bid 03/01/20 14 Penicillin V Hx Tablets 500mg 1 po qid Unknown Potassium 00 - endign 01/08/20 08/10/15 16 Namenda Hx Tablets 28mg 1 by Unknown 00 - mouth 04/28/20 Daily 17 Diclofenac Hx Tablets 75mg twice Unknown Sodium 00 - DR daily Unknown Tylenol Hx Tablets 325mg 2 tabs by Unknown 00 - mouth Unknown every 4 hours as needed Immunizations Description No Information Available Vital Signs Date Vital Result Comment 08/20/2018 9:33am Height 69 inches 5'9" Weight 175.00 lb Heart Rate 72 /min BP Systolic 122 mmHg BP Diastolic 66 mmHg Respiratory Rate 16 /min Body Temperature 96.6 F BMI (Body Mass Index) 25.8 kg/m2 06/21/2018 2:50pm Height 69 inches 5'9" Weight 175.00 lb Heart Rate 72 /min BP Systolic Sitting 128 mmHg BP Diastolic Sitting 80 mmHg Respiratory Rate 16 /min BMI (Body Mass Index) 25.8 kg/m2 06/10/2018 11:13am Heart Rate 72 /min BP Systolic Sitting 108 mmHg BP Diastolic Sitting 70 mmHg Respiratory Rate 16 /min Body Temperature 97.6 F 03/08/2018 1:43pm Height 69 inches 5'9" Weight 178.00 lb Heart Rate 68 /min BP Systolic 104 mmHg BP Diastolic 72 mmHg Respiratory Rate 16 /min BMI (Body Mass Index) 26.3 kg/m2 11/13/2017 1:00pm Height 69 inches 5'9" Weight 175.00 lb Heart Rate 72 /min BP Systolic Sitting 124 mmHg BP Diastolic Sitting 82 mmHg Respiratory Rate 16 /min BMI (Body Mass Index) 25.8 kg/m2 06/18/2017 8:47am Height 69 inches 5'9" Weight 175.00 lb Heart Rate 60 /min BP Systolic 122 mmHg BP Diastolic 70 mmHg Respiratory Rate 14 /min BMI (Body Mass Index) 25.8 kg/m2 01/08/2017 8:27am Height 69 inches 5'9" Weight 178.00 lb Heart Rate 68 /min BP Systolic Sitting 128 mmHg BP Diastolic Sitting 78 mmHg Respiratory Rate 12 /min BMI (Body Mass Index) 26.3 kg/m2 08/21/2016 2:48pm Height 69 inches 5'9" Weight 176.00 lb Heart Rate 64 /min BP Systolic Sitting 114 mmHg BP Diastolic Sitting 80 mmHg Respiratory Rate 14 /min BMI (Body Mass Index) 26.0 kg/m2 06/05/2016 1:07pm Height 69 inches 5'9" Weight 176.00 lb Heart Rate 66 /min BP Systolic 124 mmHg BP Diastolic 78 mmHg Respiratory Rate 18 /min Body Temperature 97.6 F BMI (Body Mass Index) 26.0 kg/m2 05/21/2016 11:31am Height 69 inches 5'9" Weight 176.00 lb Heart Rate 76 /min BP Systolic Sitting 116 mmHg BP Diastolic Sitting 78 mmHg Respiratory Rate 16 /min BMI (Body Mass Index) 26.0 kg/m2 05/20/2016 10:20am Height 69 inches 5'9" Weight 175.00 lb Heart Rate 72 /min BP Systolic 140 mmHg BP Diastolic 70 mmHg Respiratory Rate 18 /min Body Temperature 98.4 F BMI (Body Mass Index) 25.8 kg/m2 01/08/2016 12:02pm Height 69 inches 5'9" Weight 180.00 lb Heart Rate 56 /min BP Systolic Sitting 112 mmHg BP Diastolic Sitting 68 mmHg O2 % BldC Oximetry 97 % BMI (Body Mass Index) 26.6 kg/m2 08/09/2015 2:21pm Height 69 inches 5'9" Weight 183.00 lb Heart Rate 72 /min BP Systolic Sitting 102 mmHg BP Diastolic Sitting 64 mmHg Respiratory Rate 17 /min BMI (Body Mass Index) 27.0 kg/m2 04/12/2015 3:12pm Height 69 inches 5'9" Weight 183.00 lb Heart Rate 64 /min BP Systolic Sitting 112 mmHg BP Diastolic Sitting 70 mmHg Respiratory Rate 20 /min BMI (Body Mass Index) 27.0 kg/m2 11/14/2014 10:07am Height 69 inches 5'9" Heart Rate 60 /min BP Systolic Sitting 122 mmHg BP Diastolic Sitting 70 mmHg Respiratory Rate 16 /min 06/29/2014 3:14pm Height 69 inches 5'9" Weight 186.00 lb Heart Rate 68 /min BP Systolic Sitting 110 mmHg BP Diastolic Sitting 68 mmHg Respiratory Rate 16 /min BMI (Body Mass Index) 27.5 kg/m2 03/08/2014 10:26am Height 69 inches 5'9" Weight 184.00 lb Heart Rate 68 /min BP Systolic Sitting 92 mmHg BP Diastolic Sitting 60 mmHg Respiratory Rate 16 /min BMI (Body Mass Index) 27.2 kg/m2 10/13/2013 12:39pm Height 69 inches 5'9" Weight 185.00 lb Heart Rate 68 /min BP Systolic Sitting 126 mmHg BP Diastolic Sitting 78 mmHg Respiratory Rate 16 /min BMI (Body Mass Index) 27.3 kg/m2 07/25/2013 10:50am Heart Rate 64 /min BP Systolic Sitting 118 mmHg BP Diastolic Sitting 82 mmHg Respiratory Rate 16 /min 03/03/2013 12:52pm Heart Rate 72 /min BP Systolic Sitting 102 mmHg BP Diastolic Sitting 60 mmHg Respiratory Rate 12 /min 11/03/2012 11:18am Weight 185.00 lb Heart Rate 64 /min BP Systolic 100 mmHg BP Diastolic 60 mmHg Respiratory Rate 12 /min Results Test Date Facility Test Result H/L Range Note Laboratory test 05/21/2018 [facility] Surgical SEE RESULT [address] [place] [address] [phone] CBC Auto Diff 02/06/2018 [facility] White Blood 6.5 10^3/uL N 3.5-10.[address] [place] [address] [phone] Red Blood Count 4.45 10^6/uL N 4.00-5.40 Hemoglobin 13.7 g/dL Low 14.0-18.0 Hematocrit 40 % Low 42-52 Mean Corpuscular Volume 90 fL N 80-94 Mean Corpuscular Hemoglobin 31 pg N 27-31 Mean Corpuscular HGB Conc 34 g/dL N 31-36 Red Cell Distribution Width 14 % N 10.5-15 Platelet Count 174 10^3/uL N 150-450 Mean Platelet Volume 8.7 um3 N 7.4-10.4 Abs Neutrophils 4.6 10^3/uL N 1.5-7.7 Abs Lymphocytes 1.2 10^3/uL N 1.0-4.8 Abs Monocytes 0.6 10^3/uL N 0-0.8 Abs Eosinophils 0.1 10^3/uL N 0-0.6 Abs Basophils 0 10^3/uL N 0-0.2 Abs Nucleated RBC 0 10^3/uL Granulocyte % 71.0 % N 38-83 Lymphocyte % 18.7 % Low 25-47 Monocyte % 8.4 % High 0-7 Eosinophil % 1.2 % N 0-6 Basophil % 0.7 % N 0-2 Nucleated Red Blood Cells % 0.1 Comp Metabolic Panel 02/06/2018 [facility] Sodium 142 mmol/L N 135-[address] [place] [address] [phone] Potassium 4.3 mmol/L N 3.5-5.0 Chloride 108 mmol/L N 101-111 Co2 Carbon Dioxide 27 mmol/L N 22-32 Anion Gap 7 mmol/L N 2-11 Glucose 86 mg/dL N 70-100 Blood Urea Nitrogen 20 mg/dL N 6-24 Creatinine 0.83 mg/dL N 0.67-1.17 BUN/Creatinine Ratio 24.1 High 8-20 Calcium 9.0 mg/dL N 8.6-10.3 Total Protein 6.5 g/dL N 6.4-8.9 Albumin 4.4 g/dL N 3.2-5.2 Globulin 2.1 g/dL N 2-4 Albumin/Globulin Ratio 2.1 N 1-3 Total Bilirubin 0.60 mg/dL N 0.2-1.0 Alkaline Phosphatase 107 U/L High 34-104 Alt 15 U/L N 7-52 Ast 13 U/L N 13-39 Egfr Non- 91.1 >60 Egfr 110.2 >60 2 Laboratory test 02/06/2018 [facility] PSA Screening 6.339 High 0-4.000 [address] ng/[place] [address] [phone] [place]/Lambda 02/06/2018 [facility] [place] Free 1.65 mg/dL 4 Free Light [address] [place] [address] [phone] Lambda Free Light Chain 1.33 mg/dL 5 [place]/Lambda Free Light Chain 1.24 6 Protein 02/06/2018 [facility] Total 7.0 g/dL 6.3 - Electrophoresis [address] Protein(Pep) 7.9 [place] [address] [phone] Albumin 3.7 g/dL 3.4-4.7 Alpha-1 Globulin 0.3 g/dL 0.1-0.3 Alpha-2 Globulin 0.9 g/dL 0.6-1.0 Beta Globulin 1.1 g/dL 0.7-1.2 Gamma Globulin 1.0 g/dL 0.6-1.6 Albumin/Globulin Ratio 1.11 Impression See Comment 7 Laboratory test finding 08/22/2014 Free T4 1.23 ng/mL High 0.61-1.12 Vitamin B12 205 pg/mL N 180-914 8 Folate 10.31 ng/mL N >3.99 Methylmalonic Acid 0.24 nmol/mL N <=0.40 9 C Reactive Protein 3.94 mg/L N < 5.00 10 CBC With 04/04/2008 [facility] White Blood 8.0 CUMM 4.8-10.8 Electronic Diff [address] [place] [address] [phone] Red Cell Count 4.62 CUMM 4.6-6.2 Hemoglobin 14.6 g/dL 14.0-18.0 Hematocrit 41 % Low 42-52 Mean Corpuscular Volume 89 um3 80-94 Mean Corpuscular Hemoglob 32 pg High 27-31 Mean Corpuscular HGB Cone 36 g/dL 32-36 Redcell Distribution WDTH 13 % 10.5-15 Platelet Count 205 CUMM 150-450 Mean Platelet Volume 8.4 um3 7.4-10.4 Gran % 69.2 % 38-83 Lymph % 23.3 % 20-45 Mononuclear % 6.7 % 1-9 Eosinophil % 0.4 % 0-6 Basophil % 0.4 % 0-2 Abs Lymphs 1.9 1.0-4.8 Abs Mononuclear 0.5 0-0.8 Absolute Neutrophil Count 5.5 1.5-7.7 Abs Eosinophils 0 0-0.6 Abs Basophils 0 0-0.2 Protime 04/04/2008 [facility] Protime 11.8 10.9-13.3 [address] [place] [address] [phone] Inr 0.95 11 Laboratory test 04/04/2008 [facility] PTT (Aptt) 24.0 20.1- 28.2 12 finding [address] [place] [address] [phone] Basic Metabolic 04/04/2008 [facility] Sodium 139 mmol/L 135- 145 Panel [address] [place] [address] [phone] Potassium 4.0 mmol/L 3.5-5.0 Chloride 107 mmol/L 101-111 Co2 (Carbon Dioxide) 24.0 mmol/L 22-32 Anion Gap 8.0 mmol/L 2-11 13 Glucose 101 mg/dL High 70-100 14 BUN 19 mg/dL 6-24 Creatinine 0.91 mg/dL 0.50-1.40 One Over Creatinine 1.00 BUN/Creatinine Ratio 20.9 High 8-20 Calcium 9.1 mg/dL 8.1-9.9 15 Type And Screen 04/04/2008 [facility] Patient Blood Type O NEGATIVE [address] [place] [address] [phone] Antibody Screen NEGATIVE Specimen Discard Date 04/18/08 16 1 SEE RESULT BELOW Name: JOSE FONSECA : [address]: Rory Padilla MD Acct: [id number] Unit: [id number] AGE: 73 Location: [place] [address] Re05/21/18 SEX: M Status: ADM IN SPEC: [id number] NINA: 05/21/18- [facility] DR: Rory Padilla MD REQ: [id number] RECD: 05/21/18 STATUS: SOUT _ ORDERED: LEVEL 5 FINAL DIAGNOSIS Colon, sigmoid, resection: -- Diverticulitis. -- Margins of resection viable. -- Four benign lymph nodes. PRE-OPERATIVE DIAGNOSIS Abdominal pain; suture lucas distal GROSS DESCRIPTION Received in formalin labeled with the patient's name and sigmoid colon suture lucas distal, consists of a segment of bowel measuring 23.0 by up to 5.5 x 5 cm. The external surface demonstrates mild dusky discoloration with two areas of adherent exudate at 11.5 and 16.0 cm from the more distal margin. The specimen is opened in the usual fashion demonstrating abundant fecal material. The mucosa is mackay brown and demonstrates normal rugal folds. Innumerable diverticula are noted including underlying the areas of noted exudate at the specimen surface no masses or polyps are identified. A few small palpable lymph nodes are noted within the pericolic adipose tissue. Pneumatic Drum Sander sections are submitted in A through E with lymph nodes in E. Signed by and Reported on: Tonya Akbar MD 05/26/18 1454 END OF REPORT DEPARTMENT OF PATHOLOGY, [address] [place] [address] Torres Khan M.D. Director [facility] # [id number] 2 Because ethnic data is not always readily available, this report includes an eGFR for both -Americans and non- Americans. The National Kidney Disease Education Program (NKDEP) does not endorse the use of the MDRD equation for patients that are not between the ages of 18 and 70, are , have extremes of body size, muscle mass, or nutritional status, or are non- or non-. According to the National Kidney Foundation, irrespective of diagnosis, the stage of the disease is based on the level of kidney function: Stage Description GFR(mL/min/1.73 m(2)) 1 Kidney damage with normal or decreased GFR 90 2 Kidney damage with mild decrease in GFR 60-89 3 Moderate decrease in GFR 30-59 4 Severe decrease in GFR 15-29 5 Kidney failure <15 (or dialysis) 3 Serum levels of PSA measured using the [employer] DXI Hybritech immunoassay should not be interpreted as absolute evidence of the presence or absence of disease. The PSA value should be used in conjunction with other pertinent clinical diagnostic procedures. The values obtained with different assay methods or kits cannot be used interchangeably. 4 REFERENCE VALUE 0.3300-1.94 5 REFERENCE VALUE 0.5700-2.63 6 REFERENCE VALUE 0.2600-1.65 Test Performed by: [place] [address] 7 RESULT: No apparent monoclonal protein on serum electrophoresis. Test Performed by: [place] [address] 8 Normal Range 180 to 914 Indeterminate Range 145 to 180 Deficient Range <145 9 Test Performed by: [place] [address] [employer] Manager: Omar Jennings II, M.D., Ph.D. 10 Acute inflammation: >10.00 11 KING VALUE=2.01 ( OF 05/07/07 Recommended INR for Patients on Oral Anticoagulants Prophylaxis 2.0 - 3.0 Treatment of thrombosis 2.0 - 3.0 Prevention of embolism 2.0 - 3.0 Prevention of embolism from prosthetic heart valves 2.5 - 3.5 12 PLEASE NOTE NEW REFERENCE RANGE EFFECTIVE 07. 13 Anion gap measurement may be of limited value in the presence of any alkalosis, especially in a combined acid base disorder. . 14 Note change in reference range as of 01/20/08. The change was based on recommendations from the [place] [employer]. 15 Please note change in reference range effective 07 . 16 PREADMISSION TESTING SAMPLES FOR BLOOD BANK WILL BE HELD FOR 14 DAYS FROM THE DATE OF COLLECTION *IF* THE FOLLOWING CRITERIA ARE MET: 1) THE PATIENT HAS *NOT* BEEN IN THE LAST 3 MONTHS. 2) THE PATIENT HAS *NOT* BEEN TRANSFUSED IN THE LAST 3 MONTHS. PREADMISSION TESTING SAMPLES WILL *NOT* BE HELD FOR 14 DAYS FROM PATIENTS WHO IN THE LAST 3 MONTHS: 1) HAVE BEEN 2) HAVE BEEN TRANSFUSED THESE PATIENTS *MUST* BE COLLECTED WITHIN 3 DAYS OF THE SURGERY DATE. Procedures Date Code Description Status 05/21/2018 59612 Colectomy Partial W/End Colostomy & Close Distal Segment Completed 05/21/2018 68421 Colectomy Partial W/End Colostomy & Close Distal Segment Completed 06/19/2016 81881 Repair Hernia Inguinal > 5Yrs, Reducible Completed 06/19/2016 64270 Repair Hernia Inguinal > 5Yrs, Reducible Completed 04/10/2008 83443 Escobar/Facet/Foraminotomy;Vertebral Segment; Lumbar Completed 04/10/2008 12225 Escobar/Facet/Foraminotomy;Vertebral Segment; Lumbar Completed Encounters Type Date Location Provider Dx Diagnosis Office Visit 06/21/2018 [facility] Charly Yeager, G20 Parkinson' s 2:45p [facility] [employer] M.DHiral disease K57.20 Dvtrcli of lg int w perforation and abscess w/o bleeding Office Visit 06/01/2018 [facility] Bee Dalal, K91.89 Oth postprocedural 10:08a evans Mariano [employer] complications and Hospitalists disorders of dgstv sys E87.6 Hypokalemia G20 Parkinson's disease F02.81 Dementia in oth diseases classd elswhr w behavioral disturb R41.0 Disorientation, unspecified Z93.3 Colostomy status Office Visit 05/31/2018 [facility] Leticia Catherine K91.89 Oth postprocedural 10:08a evans Mariano N.P. complications and Hospitalists disorders of dgstv sys G20 Parkinson's disease F02.81 Dementia in oth diseases classd elswhr w behavioral disturb R41.0 Disorientation, unspecified Z93.3 Colostomy status Office 05/30/2018 [facility] Anahi K91.89 Oth postprocedural Visit 10:07a evans Mariano PA complications and Hospitalists disorders of dgstv sys G20 Parkinson's disease F02.81 Dementia in oth diseases classd elswhr w behavioral disturb R41.0 Disorientation, unspecified Z93.3 Colostomy status Office 05/29/2018 [facility] K91.89 Oth postprocedural Visit 10:06a evans Mariano PA complications and Hospitalists disorders of dgstv sys G20 Parkinson's disease R41.0 Disorientation, unspecified F02.81 Dementia in oth diseases classd elswhr w behavioral disturb Office Visit 05/28/2018 10:06a [facility] K57.80 Dvtrcli of Assoc,jaspreet Brenner, part Hospitalists [employer] unsp, w perf and abscess w/o bleed G20 Parkinson's disease F02.80 Dementia in oth diseases classd elswhr w/o behavrl disturb Z93.3 Colostomy status Office Visit 05/28/2018 [facility] Jovanny De La Torre Parkinson's 7:00a Dante Matson MD disease Office Visit 05/27/2018 [facility] K57.80 Dvtrcli of 6:05p Assoc, Hospitalists mily Persaud, [employer] unsp, w perf and abscess w/o bleed G20 Parkinson's disease F02.80 Dementia in oth diseases classd elswhr w/o behavrl disturb Z93.3 Colostomy status Office Visit 05/27/2018 [facility] Jovanny [facility] La [facility]re Parkinson's 7:00a Dante Matson MD disease F05 Delirium due to known physiological condition Office Visit 05/26/2018 10:05a [facility] K57.80 Dvtrcli of Asskrystal,jaspreet Brenner, part Hospitalists [employer] unsp, w perf and abscess w/o bleed G20 Parkinson's disease F02.80 Dementia in oth diseases classd elswhr w/o behavrl disturb Z93.3 Colostomy status Office Visit 05/26/2018 [facility] Jovanny De La Torre Parkinson's 7:00a Dante Matson MD disease F05 Delirium due to known physiological condition Office Visit 05/25/2018 10:05a [facility] Susanne K57.80 Dvtrcli of Assoc,pc Dalton Herrera, intest, part Hospitalists [employer] unsp, w perf and abscess w/o bleed G20 Parkinson's disease F02.80 Dementia in oth diseases classd elswhr w/o behavrl disturb Office Visit 05/24/2018 10:04a [facility] Bee Katlin, K57.80 Dvtrcli of Assoc,pc [employer] intest, part Hospitalists unsp, w perf and abscess w/o bleed G20 Parkinson's disease F02.80 Dementia in oth diseases classd elswhr w/o behavrl disturb N40.0 Benign prostatic hyperplasia without lower urinry tract symp Office Visit 05/22/2018 10:04a [facility] Bee Katlin, K57.80 Dvtrcli of Assoc,pc [employer] intest, part Hospitalists unsp, w perf and abscess w/o bleed G20 Parkinson's disease F02.80 Dementia in oth diseases classd elswhr w/o behavrl disturb Office Visit 05/21/2018 Surgical Rory Padilla, K63.1 Perforation of 7:00a [facility] intestine (nontraumatic) Office Visit 05/21/2018 [facility] Romy R10.9 Unspecified 10:04a Assoc,pc Sergio, [employer] abdominal pain Hospitalists G20 Parkinson's disease E03.9 Hypothyroidism, unspecified Office Visit 05/21/2018 Surgical Charly Montero K57.20 Dvtrcli of lg int 7:00a [facility] [place] w perforation and [employer] abscess w/o bleeding Office Visit 03/08/2018 [place] Wil Daugherty Parkinson's 1:45p Neurologic MHiralDHiral disease [facility] G47.52 REM sleep behavior disorder F03.90 Unspecified dementia without behavioral disturbance Office Visit 11/13/2017 1:00p [place] [facility] Wil Daugherty [facility]'s [facility] Iván disease F03.90 Unspecified dementia without behavioral disturbance G47.52 REM sleep behavior disorder R13.10 Dysphagia, unspecified Office Visit 06/18/2017 8:45a [place] [facility] Jessi M. G20 [facility] Deleon M.D. disease F03.90 Unspecified dementia without behavioral disturbance G47.62 Sleep related leg cramps Office Visit 01/08/2017 8:30a [place] [facility] Jessi M. G20 [facility] De[facility] M.D. disease R41.3 Other amnesia G47.52 REM sleep behavior disorder Office Visit 08/21/2016 2:30p [place] [facility] Jessi M. G20 [facility] M.D. disease R41.3 Other amnesia G47.52 REM sleep behavior disorder Office Visit 05/21/2016 11:30a [place] [facility] Jessi M. G20 [facility] M.D. disease M54.5 Low back pain R41.3 Other amnesia F41.9 Anxiety disorder, unspecified Office Visit 05/20/2016 10:30a Surgical Edgard Ramos K40.90 Unil inguinal [facility] M.D. hernia, w/o obst or gangr, not spcf as recur Office Visit 01/08/2016 11:45a [place] [facility] Jessi M. G20 [facility] M.D. disease R41.3 Other amnesia Office Visit 08/09/2015 2:15p [place] [facility] Jessi M. G20 [facility] M.D. disease R41.3 Other amnesia G47.52 REM sleep behavior disorder Office Visit 04/12/2015 3:00p [place] [facility] Jessi M. G20 [facility] M.D. disease R41.3 Other amnesia Office Visit 11/14/2014 10:00a [place] [facility] Jessi Mccollum 332.0 Paralysis [facility] M.D. Agshannons 780.93 Memory Loss 724.2 Lumbago Office Visit 06/29/2014 3:15p [facility] Jessi M. 332.0 Paralysis [facility] De[facility]on M.D. Agitans 780.93 Memory Loss 724.2 Lumbago 327.42 REM Sleep Behavior Disorder 780.59 Sleep Disturbances Other Office Visit 03/08/2014 10:15a [facility] Jessi M. 332.0 [facility] M.D. Agitans 724.02 Spinal Stenosis, Lumbar Region, W/O Neurogenic Claudication 780.93 Memory Loss Office Visit 10/13/2013 12:30p [facility] Jessi M. 332.0 [facility] M.D. Agitans 724.02 Spinal Stenosis, Lumbar Region, W/O Neurogenic Claudication 780.93 Memory Loss Office Visit 07/25/2013 10:45a [facility] Jessi M. 332.0 [facility] M.D. Agitans 724.02 Spinal Stenosis, Lumbar Region, W/O Neurogenic Claudication Office Visit 03/03/2013 12:45p [facility] M. 332.0 [facility] De[facility]on M.D. Agitans Office Visit 11/03/2012 11:15a [facility] M. 332.0 [facility] De[facility] M.D. Agitans 724.2 Lumbago Office Visit 07/07/2012 10:45a [facility] M. 332.0 [facility] Deleon M.D. Agitans 724.4 Neuritis Or Radiculitis Thoracic Or Lumbosacral Unspec Office Visit 04/01/2012 [facility] Jessi MHiral 332.0 Paralysis Agitans 9:30a [facility] Deleon M.D. Office Visit 11/09/2009 Neurosurgery Elvin Mccollum 724.2 Lumbago 2:15p [facility] Hernandez M.D. Office Visit 08/15/2008 Neurosurgery Elvin M. 11:00a [facility] Hernandez M.D. Office Visit 04/04/2008 Neurosurgery Elvin Mccollum 724.02 Spinal Stenosis, 1:00p [facility] Hernandez M.D. Lumbar Region, W/O Neurogenic Claudication Office Visit 02/29/2008 Neurosurgery Elvin Mccollum 724.02 Spinal Stenosis, 2:45p [facility] Hernandez M.D. Lumbar Region, W/O Neurogenic Claudication Office Visit 01/14/2008 Neurosurgery Elvin Mccollum 724.02 Spinal Stenosis, 2:30p [facility] M.D. Lumbar Region, W/O Neurogenic Claudication Plan of Treatment Future Appointment(s):08/31/2018 7:30 am - Charly Chowdhury PA at [facility]08/31/2018 7:30 am - Rory Padilla MD, FACS at [facility]08/20/2018 - Wendy Alcantar, NPK57.20 Diverticulitis of large intestine with perforation and absceFollow up:AFTER DISCHARGE FROM [place] [id number] Encounter for other preprocedural examination
[2018-08-31] MEDS ORDERED: Famotidine IV* 10 MG/ML 2 ML (20 mg) IV ONE (06:00)
[2018-08-31] MEDS ORDERED: Dexamethasone IV* 4 MG/ML 1 ML (4 MG) IV SLOW PU ONE (06:00)
[2018-08-31] MEDS ORDERED: Lactated Ringers 1000 ML Bag* 1,000 ML IV SCH (06:00)
[2018-08-31] MEDS ORDERED: Bupivacaine 0.25% W/EPI* 10 ML SDV ONE (06:34)
[2018-08-31] MEDS ORDERED: Buffered Lidocaine 1% SYRIN* 1 ML/SYRINGE INTRADERM ONE (06:39)
[2018-08-31] MEDS ORDERED: Dexamethasone IV* 4 MG/ML 1 ML (4 MG) ONE (06:39)
[2018-08-31] MEDS ORDERED: Famotidine IV* 10 MG/ML 2 ML (20 mg) ONE (06:39)
[2018-08-31] MEDS ORDERED: Heparin VIAL(*) 5000 UNITS/ML VIAL (FIVE THOUSAND) ONE (06:39)
[2018-08-31] MEDS ORDERED: Etomidate* 2 MG/ML 10 ML VIAL ONE (07:01)
[2018-08-31] MEDS ORDERED: Lidocaine 2% PF * 5 ML VIAL ONE (07:01)
[2018-08-31] MEDS ORDERED: Midazolam* 1 MG/ML 2 ML VIAL (2 MG) ONE (07:01)
[2018-08-31] MEDS ORDERED: fentaNYL* 50 MCG/ML 5 ML VIAL (250 MCG VIAL) ONE (07:01)
[2018-08-31] MEDS ORDERED: Rocuronium* 10 MG/ML VIAL ONE ×2 (07:02→10:20)
[2018-08-31] MEDS ORDERED: EPHEDrine (Pressors)* 50 MG/ML VIAL ONE (07:52)
[2018-08-31] MEDS ORDERED: Phenylephrine 40 MCG/ML SYRINGE ONE (07:59)
[2018-08-31] MEDS ORDERED: Morphine 4 MG/ML VIAL (1 ml) 4 MG/ML VIAL IV PRN (08:28)
[2018-08-31] MEDS ORDERED: Acetaminophen IV 1GM/100ML * 1,000 MG/100 ML VIAL IVPB ONE (08:28)
[2018-08-31] MEDS ORDERED: Naloxone* 0.4 MG/ML 1 ML VIAL IV PRN (08:28)
[2018-08-31] MEDS ORDERED: fentaNYL* 50 MCG/ML 2 ML VIAL (100 MCG VIAL) IV PRN (08:28)
[2018-08-31] MEDS ORDERED: fentaNYL* 50 MCG/ML 2 ML VIAL (100 MCG VIAL) ONE ×2 (09:54→13:15)
[2018-08-31] MEDS ORDERED: Ondansetron INJ* 2 MG/ML VIAL ONE (11:00)
[2018-08-31] MEDS ORDERED: Sugammadex * 500 MG/5 ML VIAL IV PUSH ONE (11:08)
--- NOTE | 2018-08-31 12:00 | OP ---
Operative Report - Blank - Operative Report Date of Operation: 08/31/18 Note: Brief Operative Note Preop Dx: Colostomy Postop Dx: same Procedure: Laparoscopic converted to open ostomy reversal, lysis of adhesions Anesthesia: GET Surgeon: Valerie Occupational Therapy Manager: Luciana RICE, Phil DE LEÓN, Juan Miguel RICE Fluids: 2100 mL LR EBL: <100 mL Specimen: colostomy Drains: JOSÉ MIGUEL; half inch packing to colostomy site Findings: dictated
[2018-08-31] MEDS ORDERED: Acetaminophen TAB* 325 MG PO PRN (12:26)
[2018-08-31] MEDS ORDERED: Ondansetron INJ* 2 MG/ML VIAL IV PRN (12:27)
[2018-08-31] MEDS ORDERED: Acetaminophen IV 1GM/100ML * 100 ML ONE (12:54)
--- NOTE | 2018-08-31 13:26 | OP ---
CC: Leroy Rose MD; Charly Yeager MD * DATE OF OPERATION: 08/31/18 - ROOM #334 DATE OF : 47 SURGEON: Rory Padilla MD HOME AGENT: DWAYNE Guardado ANESTHESIOLOGIST: Yury Ibarra MD ANESTHESIA: General endotracheal. PRE-OP DIAGNOSES: 1. Colostomy status. 2. Diverticular disease of colon. POST-OP DIAGNOSES: 1. Colostomy status. 2. Diverticular disease of colon. OPERATIVE PROCEDURE: Laparoscopic converted to open colostomy reversal. ESTIMATED BLOOD LOSS: 100 mL. IV FLUIDS: Crystalloid. SPECIMEN: Colostomy. DRAINS: 10-mm Gene-Ashraf. COMPLICATIONS: None. COUNTS: The instrument, needle, and sponge counts were correct. DESCRIPTION OF PROCEDURE: The patient was brought to the operating room and placed on the table supine. Sequential compression devices were placed on both lower extremities. General anesthesia was administered and Whitfield catheter was placed. He was positioned split-leg on the table and rectal irrigation was performed. The colostomy was oversewn with a 0 silk. The abdomen was then prepped and draped in the usual sterile fashion and a time-out was performed. Local anesthetic was infiltrated into the skin and soft tissue prior to making the laparoscopic incisions and entry into the abdomen was through a transumbilical vertical incision using an open technique. After accessing the peritoneal cavity, carbon dioxide was insufflated to a pressure of 15 mmHg. Inspection with the laparoscope revealed adhesions in the right lower quadrant, in the pelvis and in the left lower quadrant as well. These were not extensive , however. Under direct visualization, 5-mm trocars were placed in the right lower quadrant and right upper quadrant and then adhesiolysis was performed with LigaSure. The small bowel was mobilized from the pelvis to the upper abdomen with lysis of adhesions performed as well. The rectum was identified and the stapled end had been adherent to a portion of the ileum, which was sharply dissected free without enterotomy. Next, the mobilization of the descending colon along the white line of Toldt was performed with LigaSure. At this point , the colostomy was taken down. A division of the mucocutaneous junction was performed with cautery and then the subcutaneous dissection was performed using combination of sharp and blunt dissection and cautery dissection to free the colostomy. It was drawn up through the wound and the colostomy was divided and then proximally the bowel was sized for a 31-mm EEA. The anvil was placed into the bowel lumen and it was purse-stringed and placed with a 2-0 Prolene. Then, this was returned to the abdominal cavity and the ostomy site was closed with a series of 3 figure-of -eight sutures with #1 Vicryl. After reestablishing pneumoperitoneum, the rectal stump was instrumented first with the EEA sizers and then the 33-mm EEA was attempted to be advanced; however, there was difficulty advancing this, and ultimately it was decided to perform a midline laparotomy after doing a series of maneuvers to milk the bowel over the stapler. I had also opened the peritoneum in the anterior pelvis in order to try and facilitate passage of the stapler, but this did not ease its passage. A midline lower laparotomy was undertaken to the previous scar. Retractors were placed. The sizers and then the EEA stapler were then able to be passed with guidance from hand within the pelvis. An end-to-end anastomosis was performed with the 31-mm EEA stapler and then the anastomosis was tested with bubble test and no leak was identified. A series of 3-0 silks were placed across areas in the pelvis where the peritoneum had been opened to reapproximate this across the anterior rectum. A JOSÉ MIGUEL drain was placed through a 5-mm stab wound incision in the right lower quadrant from the laparoscopic site and this was positioned in the pelvis and sutured to the skin with 3-0 Prolene. The small bowel was run from the ileocecal valve proximally to the ligament of Treitz. No enterotomies were noted. There was a small serosal tear that was oversewn in the terminal ileum and a 3-0 silk was used to oversew this. After copious lavage of the abdomen and ensuring hemostasis, the omentum was positioned down to the pelvis and the midline laparotomy was closed with #1 PDS running. The ostomy site was partially closed with a pursestring of 3-0 Vicryl. The remaining skin incisions were closed with lili and dressings were applied. The patient tolerated this procedure well, was extubated and transferred to Recovery in stable condition. [id number]/[facility] #: [id number] [facility]OSPITALKari
[2018-08-31] MEDS: Heparin VIAL(*) 5000 UNITS/ML VIAL (FIVE THOUSAND) SUBCUT SCH ×2 (16:13→23:27)
[2018-08-31] MEDS: ROTIGOTINE 2 MG/24 HR TOPICAL SCH (16:13)
[2018-08-31] MEDS: Ketorolac INJ* 15 MG/ML 1 ML VIAL IV PUSH PRN (16:14)
--- NOTE | 2018-08-31 18:00 | CONS ---
NEUROLOGY CONSULTATION NOTE: DATE OF CONSULT: 08/31/18 CONSULTING PROVIDER: Dr. Rory Padilla. REASON FOR CONSULT: The patient with history of Parkinson's disease and is currently status post surgery and is unable to take any p.o. medications at this time. CHIEF COMPLAINT: Drowsy and slightly confused. HISTORY OF PRESENT ILLNESS: Mr. Jose Zepeda is a 73-year-old right- handed man with a diagnosis of Parkinson's disease [address] Deleon , who presented for elective surgery with a preop diagnosis of colostomy and the procedure he underwent is laparoscopic converted to open ostomy reversal, lysis of adhesions. The patient tolerated the procedure well. The patient took his full- dose Sinemet, amantadine, and selegiline this morning at 4 a.m. Currently, the patient has postop drowsiness and mild confusion. He was able to recognize his . He has mild resting tremors of the upper extremities, but are not disabling. He received ertapenem this morning and is receiving Dilaudid for pain control as needed. The patient is on lactated Ringer's right now. Neurology was consulted to assist with the patient's Parkinson's medications. According to Mrs. Zepeda, the patient had an emergent colostomy on . Following the procedure, he did not receive his Sinemet for 5 days. However , he did have an active infection and abscess at that time, which almost likely is the cause of his worsening Parkinson's disease. He had symptoms of delusions , confusion, he did not know family members, visual hallucinations, and agitation. She mentioned to me today that the patient becomes very anxious very quickly, especially when he is exposed to multiple stimuli. For instance, the patient does not like to be poked every 4 hours. He did use the Neupro patch during the previous hospitalization for a few days and that seemed to have helped with his behavior. It took him weeks to almost 2 months before he can recover back to his normal self. At baseline, the patient is able to ambulate without any assistance. He is able to read professional journals and attend lectures. However, for the past 1 week, the patient has been having a lot of increase in back pain for which he is required to take acetaminophen. Currently, the patient is drowsy, but is awake and is alert to self and his spouse. He knew that he was outside his home and in [place], [place]; however, did not know which hospital it was. He has no headaches or visual disturbance. He has no focal weakness or paresthesias. PAST MEDICAL HISTORY: Parkinson's disease with memory impairment, hypothyroidism, benign prostatic hypertrophy, and chronic low back pain due to degenerative disk disease. PAST SURGICAL HISTORY: Laparotomy in May 2018, end-colostomy with Rito pouch for perforated diverticulitis with an open right inguinal hernia repair in 2016, decompressive lumbar surgery in 2013, right ankle surgery, and appendectomy in the past. MEDICATIONS: 1. AM medication at 4 a.m., levothyroxine 125 mcg p.o. in the morning. 2. Sinemet 25/100 one tablet in the morning. 3. Amantadine 100 mg. 4. Selegiline 5 mg daily. 5. Namenda 28 mg. 6. Tylenol 650 mg p.o. daily. At 10 a.m., he takes half a Sinemet; at noon, he takes another dose of amantadine 100 mg, selegiline 5 mg, and Sinemet half a tablet. At 1:30 p.m., Sinemet half a tablet; at 3 p.m., Sinemet half a tablet; at 5 p.m., Sinemet half a tablet. In the evening, he takes donepezil 10 mg at bedtime, tamsulosin , and Myrbetriq 25 mg p.o. at bedtime. ALLERGIES: No known drug allergies. FAMILY HISTORY: No known history of stroke or seizures. 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 He is . He denied any tobacco or alcohol use. REVIEW OF SYSTEMS: A 14-point review of systems was obtained and otherwise negative except for what was mentioned in the HPI. PHYSICAL EXAM: Vitals: Temperature of 97.2, pulse of 86, respiratory rate of 15, oxygen saturation of 97%, blood pressure 155/82. General: Ill-appearing, elderly man, in no acute distress. Head: Normocephalic, atraumatic. Eyes: Conjunctivae/corneas are clear. Neck: No nuchal rigidity. Supple and no carotid bruits. Lungs: Clear to auscultation bilaterally. Cardiovascular: Regular rate and rhythm with normal S1, S2. Extremities: Normal range of motion with no cyanosis. Skin: No skin lesions or lacerations. Psych: Affect is flat and slightly depressed mood. Neurological Examination: Mental Status: Awake, alert to self and city, but not specifically the place or month. He has hypophonia. He has bradykinesia. Masked facies. Cranial Nerves : Normal confrontation testing bilaterally. Pupils are mid range and reactive to light. Normal consensual response. No ptosis. Sensation is intact on the forehead, cheeks, and jaw region bilaterally. There is no facial droop. He is able to hear throughout the history process. Symmetrical palatal elevation. Normal strength against resistance. Tongue is symmetrical and midline with no atrophy or fasciculation. Motor Examination: He has got resting tremors, right greater than left. There is mild cogwheel rigidity, but not significant. He is able to elevate all 4 limbs against gravity. Reflexes: Right/left, brachioradialis 1/1, biceps 1/1, triceps 1/1, patella 1/1, ankle 0/0, plantar flexor/flexor. Sensation is intact to light touch throughout. Coordination: Normal [id number] and rapid alternating movements. Gait was not assessed. ASSESSMENT AND RECOMMENDATIONS: Mr. Jose Zepeda is a 73-year-old male, status post laparoscopic converted to open colostomy reversal, who is currently n.p.o. at this time. The patient did take his Parkinson's medications, specifically a full dose of Sinemet, amantadine, and selegiline early this morning. Upon review of his medications, it turns out the patient is on 350 mg of levodopa a day. Certainly, dopamine withdrawal can occur with such a low dose, but it is unlikely. However, given the patient and family's concern, we have agreed to start a very low dose of Neupro patch 2 mg every 24 hours. The side effects of Neupro were discussed with the patient and his spouse, which include and are not limited to hallucinations and impulse control behavior. The earlier we can restart his anti-Parkinson's medications, the lower the risk of dopamine withdrawal. Therefore, if approved by Surgery, I recommend PT/OT for tomorrow to do some range of motion exercises and if possible get the patient out of bed. I reassured Mrs. Zepeda that this hospitalization was for an an elective procedure with no known ongoing infections, unlike the prior procedure in May, the patient hopefully should do well overall. I will continue to follow with you. If the patient's oral intake advances tomorrow, we will slowly restart some of his medications, preferably the Sinemet. TIME SPENT: Sixty minutes of which more than 50% was spent obtaining history, examining the patient, education and counseling, and discussing the treatment plan with the patient, his spouse, and the bedside nurse. I also discussed the plan with chyna Ross. [id number]/[facility] #: [id number] NEY
[2018-08-31] MEDS: Lactated Ringers 1000 ML Bag* 1,000 ML IV SCH (20:31)
[2018-09-01] MEDS: Lactated Ringers 1000 ML Bag* 1,000 ML IV SCH ×4 (03:07→23:45)
[2018-09-01] MEDS: Ketorolac INJ* 15 MG/ML 1 ML VIAL IV PUSH PRN (04:21)
[2018-09-01] MEDS: Levothyroxine TAB* 125 MCG TAB PO SCH (06:03)
[2018-09-01] MEDS: Heparin VIAL(*) 5000 UNITS/ML VIAL (FIVE THOUSAND) SUBCUT SCH (06:05)
[2018-09-01 06:33] LABS: ABS Basophils 0 10^3/ul (0-0.2); ABS Eosinophils 0 10^3/ul (0-0.6); ABS Monocytes 0.7 10^3/ul (0-0.8); ABS Neutrophils 10.7 10^3/ul (1.5-7.7); ABS Nucleated RBC 0 10^3/ul; Eosinophil % 0 %; Hematocrit 34 % (36-46); Hemoglobin 11.4 g/dL (14.0-18.0); Lymphocyte % 8.1 %; Mean Corpuscular HGB Conc 34 g/dL (31-36); Mean Corpuscular Hemoglobin 30 pg (27-31); Mean Corpuscular Volume 88 fL (80-94); Mean Platelet Volume 8.5 fL (7.4-10.4); Nucleated Red Blood Cells % 0; Platelet Count 181 10^3/uL (150-450); Red Blood Count 3.82 10^6 /uL (4.18-5.48); Red Cell Distribution Width 14 % (10.5-15); White Blood Count 12.4 10^3/uL (3.5-10.8)
[2018-09-01 06:47] LABS: BUN/Creatinine Ratio 14.3 (8-20); Calcium 8.4 mg/dL (8.6-10.3); EGFR African American 120.2 (>60); EGFR Non-African American 99.3 (>60); Potassium 4.2 mmol/L (3.5-5.0)
[2018-09-01 10:40] LABS: Hematocrit 34 % (36-46); Hemoglobin 11.4 g/dL (14.0-18.0)
--- NOTE | 2018-09-01 10:52 | PN ---
Progress Note - Progress Note Date of Service: 09/01/18 SOAP: Subjective:POD#1 S/P LAP CONVERTED TO OPEN COLOSTOMY REVERSAL alert and oriented,answers questions appropriately;reports mild lower abd pain;pt nurse reported rectal bleeding on sheet and in toilet this morning [] Objective: Vital Signs Temp 97.8 F 09/01/18 10:11 Pulse 71 09/01/18 10:11 Resp 16 09/01/18 10:11 BP 125/74 09/01/18 10:11 Pulse Ox 98 09/01/18 10:11 Intake & Output 08/31/18 09/01/18 09/01/18 18:59 06:59 18:59 Intake Total 3650 1970 980 Output Total 360 1135 Balance 3290 835 980 Intake: IV Fluids 3650 1970 980 IV tylenol 100 LR 3500 1970 980 NS 50ML, Ertopenin 1G 50 Oral 0 Output: JOSÉ MIGUEL #1 60 35 Whitfield 200 1100 Estimated Blood Loss 100 Other: # Bowel Movements 0 Laboratory Results - last 24 hr 09/01/18 09/01/18 09/01/18 06:02 06:02 06:02 WBC 12.4 H RBC 3.82 L Hgb 11.4 L Hct 34 L MCV 88 MCH 30 MCHC 34 RDW 14 Plt Count 181 MPV 8.5 Neut % (Auto) 85.9 Lymph % (Auto) 8.1 Logan % (Auto) 5.9 Eos % (Auto) 0 Baso % (Auto) 0.1 Absolute Neuts (auto) 10.7 H Absolute Lymphs (auto) 1.0 Absolute Monos (auto) 0.7 Absolute Eos (auto) 0 Absolute Basos (auto) 0 Absolute Nucleated RBC 0 Nucleated RBC % 0 Sodium 136 Potassium 4.2 Chloride 103 Carbon Dioxide 27 Anion Gap 6 BUN 11 Creatinine 0.77 Est GFR ( Amer) 120.2 Est GFR (Non-Af Amer) 99.3 BUN/Creatinine Ratio 14.3 Glucose 111 H Calcium 8.4 L Blood Type O Negative Crossmatch See Detail 09/01/18 10:29 WBC RBC Hgb 11.4 L Hct 34 L MCV MCH MCHC RDW Plt Count MPV Neut % (Auto) Lymph % (Auto) Logan % (Auto) Eos % (Auto) Baso % (Auto) Absolute Neuts (auto) Absolute Lymphs (auto) Absolute Monos (auto) Absolute Eos (auto) Absolute Basos (auto) Absolute Nucleated RBC Nucleated RBC % Sodium Potassium Chloride Carbon Dioxide Anion Gap BUN Creatinine Est GFR ( Amer) Est GFR (Non-Af Amer) BUN/Creatinine Ratio Glucose Calcium Blood Type Crossmatch lungs:clear anterior;heart:RRR;abd:+bs,nondistended;incisions intact with lili;JOSÉ MIGUEL sanguinous;large amt of bright red blood on sheets and gown per rectum,clots at anus,no current oozing;ext:SCDs on [] Assessment:postop rectal bleeding,VSS [] Plan:discussed with Dr Padilla,stat H&H drawn,Heparin and Toradol discontinued, large bore IV x2 in place;Type/screen/cross for 2u prbcs;VS q1h and frequent turning to assess rectal bleeding discussed with his nurse;pt at bedside, updated with current plan []
[2018-09-01] MEDS: HYDROmorphone INJ1* 1 MG/ML SYRINGE IV SLOW PU PRN ×2 (13:08→15:42)
[2018-09-01 14:27] LABS: Hematocrit 32 % (36-46); Hemoglobin 11.1 g/dL (14.0-18.0)
--- NOTE | 2018-09-01 16:06 | PN ---
Progress Note - Progress Note Date of Service: 09/01/18 Note: S: POD #1. Patient presents s/p colostomy reversal yesterday. Bright red bleeding from the rectum was noted by the patient this morning. Patient's noted a decrease in bleeding this afternoon and appeared to have clot formations. Patient is otherwise doing well, denies any pain at this time. 2 O: Temp Pulse Resp BP Pulse Ox 99.4 F 66 14 128/71 96 09/01/18 16:06 09/01/18 16:06 09/01/18 16:06 09/01/18 16:06 09/01/18 16:06 Intake & Output 08/30/18 08/31/18 09/01/18 09/02/18 06:59 06:59 06:59 06:59 Intake Total 5620 980 Output Total 1495 2444 Balance 4125 -1464 Weight 180 lb Intake: IV Fluids 5620 980 IV tylenol 100 LR 5470 980 NS 50ML, Ertopenin 1G 50 Oral 0 0 Output: JOSÉ MIGUEL #1 95 30 [place] 1300 750 Estimated Blood Loss 100 1664 Other: # Bowel Movements 0 Laboratory Tests 09/01/18 09/01/18 09/01/18 06:02 10:29 14:08 Hgb 11.4 L 11.4 L 11.1 L Hct 34 L 34 L 32 L PE: General: Alert and oriented in NAD. Patient has difficulty finding words. Abdomen: Soft, non-tender. Incisions are without active bleeding, erythema , swelling, or heat. JOSÉ MIGUEL tube noted. A: S/p colostomy reversal Rectal bleeding Parkinson's disease P: Patient is stable and doing well aside from rectal bleeding. Heparin and ketorolac were discontinued this morning and bleeding seems to have improved. There was slight decrease in hbg/hct, but there is no indication for transfusion at this time and will continue to monitor. Incision dressings changed, and should be continued daily. No other changes at this time, continue current medications, monitoring, and maintenance of JOSÉ MIGUEL tube. Neurology follows patient for management of Parkinson's.
--- NOTE | 2018-09-01 16:25 | PN ---
Subjective Date of Service: 09/01/18 Length of Stay: 1 Days Neurology is following for the patient's Parkinson's disease. Interval History: According to Mrs. Zepeda, the patient was awake and joking this morning. He is mild distress due to abdominal pain, but was recently given small dose of Dilaudid. He is drowsy now but opens his eyes and partially appropriate. He talked about Brexit and how frustrating this makes him. He has mild tremors but not disabling. He was able to walk to the end of the hallway yesterday. He denied any hallucinations. He is tolerating the Neupro patch without any side effects. Review of Systems: Denied CP, SOB, or palpitations. Objective Active Medications: Acetaminophen (Tylenol Tab*) 650 mg PO Q4H PRN PRN Reason: PAIN Hydromorphone HCl (Dilaudid Inj1s*) 0.5 mg IV SLOW PU Q2H PRN PRN Reason: PAIN Last Admin: 09/01/18 15:42 Dose: 0.5 mg Lactated Ringer's (Lactated Ringers 1000 Ml Bag*) 1,000 mls @ 150 mls/hr IV PER RATE [facility] Last Admin: 09/01/18 10:07 Dose: 150 mls/hr Levothyroxine Sodium (Synthroid Tab*) 125 mcg PO DAILY@0600 [facility] Last Admin: 09/01/18 06:03 Dose: 125 mcg Ondansetron HCl (Zofran Inj*) 4 mg IV Q6H PRN PRN Reason: NAUSEA Rotigotine (Neupro) 1 each TOPICAL Q24H [facility] Last Admin: 08/31/18 16:13 Dose: 1 each Vital Signs 09/01/18 09/01/18 09/01/18 15:00 15:42 15:54 Temperature 98.6 F Pulse Rate 65 Respiratory 18 18 Rate Blood Pressure 122/67 (mmHg) O2 Sat by Pulse 93 93 Oximetry 09/01/18 16:06 Temperature 99.4 F Pulse Rate 66 Respiratory 14 Rate Blood Pressure 128/71 (mmHg) O2 Sat by Pulse 96 Oximetry Intake and Output Last 24 Hours 08/30/18 08/31/18 09/01/18 09/02/18 06:59 06:59 06:59 06:59 Intake Total 5620 821 Output Total 2227 7274 Balance 4125 -1464 Weight 180 lb Intake: IV Fluids 5620 980 IV tylenol 100 LR 5470 980 NS 50ML, Ertopenin 1G 50 Oral 0 0 Output: JOSÉ MIGUEL #1 95 30 [place] 1300 750 Estimated Blood Loss 100 1664 Other: # Bowel Movements 0 Oxygen Devices in Use Now: None Neurology Exam: General: Well nourished, well developed, and in no acute distress HEENT: Normocephelic/atraumatic, sclera anicteric, mucous membranes moist Extremities: No clubbing, cyanosis, or edema Neurological Findings: Awake, alert, and oriented to person, but not place or time. He did recognize me and his spouse. Speech: moderate hypophonia. Cranial Nerve: PERRL, EOM intact, VFF, no nystagmus Motor: able to elevate all 4 extremities to command. Sensation: intact to LT/PP bilaterally upper and lower extremities Deep Tendon Reflex: 1+ symmetric in the upper/lower extremities, Babinski - down going Coordination: normal finger to nose but bradykinetic. Gait: n/a Result Diagrams: 09/01/18 14:08 09/01/18 06:02 Assessment/Plan 1. Parkinson's disease with mild dementia Tolerating Neupro patch. We decided not to increase the dose since the patient' s tone is almost normal. The patch does come with complications of hallucinations with higher dose. Defer OOB orders to the primary team when he is deemed ready 2. S/p surgery with rectal bleeding- defer to the surgery team. I will continue to follow.
[2018-09-01] MEDS: ROTIGOTINE 2 MG/24 HR TOPICAL SCH (16:31)
[2018-09-02] MEDS: HYDROmorphone INJ1* 1 MG/ML SYRINGE IV SLOW PU PRN ×2 (02:39→05:39)
[2018-09-02] MEDS: Levothyroxine TAB* 125 MCG TAB PO SCH (05:38)
[2018-09-02] MEDS: Lactated Ringers 1000 ML Bag* 1,000 ML IV SCH ×2 (06:23→13:15)
[2018-09-02 06:58] LABS: Hematocrit 31 % (36-46); Hemoglobin 10.5 g/dL (14.0-18.0); Mean Corpuscular HGB Conc 34 g/dL (31-36); Mean Corpuscular Hemoglobin 30 pg (27-31); Mean Corpuscular Volume 88 fL (80-94); Mean Platelet Volume 8.6 fL (7.4-10.4); Platelet Count 147 10^3/uL (150-450); Red Blood Count 3.48 10^6 /uL (4.18-5.48); Red Cell Distribution Width 14 % (10.5-15); White Blood Count 9.8 10^3/uL (3.5-10.8)
[2018-09-02 07:14] LABS: Calcium 8.4 mg/dL (8.6-10.3); EGFR African American 120.2 (>60); EGFR Non-African American 99.3 (>60); Potassium 4.1 mmol/L (3.5-5.0)
--- NOTE | 2018-09-02 12:56 | PN ---
Progress Note - Progress Note Date of Service: 09/02/18 Note: S: POD #2. Seen earlier this a.m. by Dr. Padilla. No sig rectal bleeding overnight. Tolerating clears thus far. Passing flatus? Ambulating some. O: Vital Signs - 8 hr 09/02/18 09/02/18 09/02/18 05:39 05:40 07:11 Temperature Pulse Rate Respiratory 20 20 18 Rate Blood Pressure (mmHg) O2 Sat by Pulse Oximetry 09/02/18 09/02/18 09/02/18 07:35 07:40 11:15 Temperature 98.6 F 98.5 F Pulse Rate 67 76 Respiratory 16 16 16 Rate Blood Pressure 122/64 105/54 (mmHg) O2 Sat by Pulse 95 95 95 Oximetry Intake and Output Last 24 Hours 08/31/18 09/01/18 09/02/18 09/03/18 06:59 06:59 06:59 06:59 Intake Total 5620 4944 Output Total 1495 3924 650 Balance 4125 1020 -650 Weight 180 lb Intake: IV Fluids 5620 4944 IV tylenol 100 LR 5470 4944 NS 50ML, Ertopenin 1G 50 Oral 0 0 Output: JOSÉ MIGUEL #1 95 60 Urine 650 [place]field 1300 1550 650 Estimated Blood Loss 100 1664 Other: # Bowel Movements 0 Gen: NAD Heart: reg Lungs: clear ant Abd: +BS (normoactive); JOSÉ MIGUEL: sanguinous; midline incision clean; small amt of sang drainage; ostomy site: clean; packing changed; skyla'd well. Soft; incisional tenderness only. Lab: Laboratory Tests 09/01/18 09/02/18 14:08 06:38 Hgb 11.1 L 10.5 L BMP ok A: s/p laparoscopy, laparotomy w/ reversal of colostomy, improving. Bleeding appears to have stopped. P: clear liqs; pain control; wound care; Parkinson's meds per neurology (may be able to begin resuming usual po meds). Ambulation. Await further bowel fct.
--- NOTE | 2018-09-02 14:39 | PN ---
Subjective Date of Service: 09/02/18 Length of Stay: 2 Days Neurology is following for the management of Parkinson's disease. Interval History: He is doing well from the Parkinson's standpoint. He has not had any debilitating tremors. He feels that his tone is still normal. However, he is having intermittent rectal bleeding, last bout was this afternoon. He is being evaluated by the bedside nurse. He was able to eat some orange ice cream and drink water intermittently. He has tolerated the Neupro patch with out any reported hallucinations. He appears hemodynamically stable. Review of Systems: Denied CP, SOB, or palpitations. Objective Active Medications: Acetaminophen (Tylenol Tab*) 650 mg PO Q4H PRN PRN Reason: PAIN Carbidopa/Levodopa (Sinemet 25/100 Tab(*)) 0.5 tab PO QID [facility] Carbidopa/Levodopa (Sinemet 25/100 Tab(*)) 1 tab PO DAILY [facility] Hydromorphone HCl (Dilaudid Inj1s*) 0.5 mg IV SLOW PU Q2H PRN PRN Reason: PAIN Last Admin: 09/02/18 05:39 Dose: 0.5 mg Lactated Ringer's (Lactated Ringers 1000 Ml Bag*) 1,000 mls @ 50 mls/hr IV PER RATE [facility] Last Admin: 09/02/18 13:15 Dose: 50 mls/hr Levothyroxine Sodium (Synthroid Tab*) 125 mcg PO DAILY@0600 [facility] Last Admin: 09/02/18 05:38 Dose: 125 mcg Ondansetron HCl (Zofran Inj*) 4 mg IV Q6H PRN PRN Reason: NAUSEA Rotigotine (Neupro) 1 each TOPICAL Q24H [facility] Last Admin: 09/01/18 16:31 Dose: 1 each Vital Signs 09/02/18 09/02/18 09/02/18 05:40 07:11 07:35 Temperature 98.6 F Pulse Rate 67 Respiratory 20 18 16 Rate Blood Pressure 122/64 (mmHg) O2 Sat by Pulse 95 Oximetry 09/02/18 09/02/18 07:40 11:15 Temperature 98.5 F Pulse Rate 76 Respiratory 16 16 Rate Blood Pressure 105/54 (mmHg) O2 Sat by Pulse 95 95 Oximetry Intake and Output Last 24 Hours 08/31/18 09/01/18 09/02/18 09/03/18 06:59 06:59 06:59 06:59 Intake Total 5620 4944 1030 Output Total 1495 3924 1095 Balance 4125 1020 -65 Weight 180 lb Intake: IV Fluids 5620 4944 980 IV tylenol 100 LR 5470 4944 980 NS 50ML, Ertopenin 1G 50 Oral 0 0 50 Output: JOSÉ MIGUEL #1 95 60 20 Urine 650 425 [place] 1300 1550 650 Estimated Blood Loss 100 1664 Other: # Bowel Movements 0 0 Oxygen Devices in Use Now: None Neurology Exam: General: Well nourished, well developed, and in no acute distress HEENT: Normocephelic/atraumatic, sclera anicteric, mucous membranes moist Extremities: No clubbing, cyanosis, or edema Neurological Findings: Awake, alert, and oriented to person, but not place or time. He did recognize me and his spouse. Speech: moderate hypophonia. Cranial Nerve: PERRL, EOM intact, VFF, no nystagmus Motor: able to elevate all 4 extremities to command. Mild resting tremor on the right. No cogwheel rigidity. Sensation: intact to LT/PP bilaterally upper and lower extremities Deep Tendon Reflex: 1+ symmetric in the upper/lower extremities, Babinski - down going Coordination: normal finger to nose with some mild bradykinesia. He was trouble focusing on the examiner's finger. Gait: n/a Result Diagrams: 09/02/18 06:38 09/02/18 06:38 Assessment/Plan 1. Parkinson's disease with mild dementia Tolerating Neupro patch. Restart Sinemet 25/100 mg - half a tablet four times a day and one table in the morning. Continue Neupro patch until tomorrow, then we will restart Seligeline and Amantadine. Continue OOB to chair and working with PT 2. S/p surgery with rectal bleeding- defer to the surgery team. I will continue to follow.
[2018-09-02] MEDS: ROTIGOTINE 2 MG/24 HR TOPICAL SCH (15:38)
[2018-09-02] MEDS: Carbidopa/Levodop 25/100 MG TAB(*) PO SCH ×2 (15:39→17:01)
[2018-09-03] MEDS: Levothyroxine TAB* 125 MCG TAB PO SCH (05:46)
[2018-09-03 06:58] LABS: Hematocrit 31 % (36-46); Hemoglobin 10.7 g/dL (14.0-18.0)
[2018-09-03] MEDS: Carbidopa/Levodop 25/100 MG TAB(*) PO SCH ×6 (09:34→18:15)
[2018-09-03] MEDS: HYDROmorphone INJ1* 1 MG/ML SYRINGE IV SLOW PU PRN (11:06)
--- NOTE | 2018-09-03 15:28 | PN ---
Progress Note - Progress Note Date of Service: 09/03/18 Note: S: POD #3: Patient is s/p colostomy reversal. Patient states that his mental status is not well, but has difficulty elaborating. Admits to lightheadedness. Denies headache. He denies abdominal pain, or pain at incisions. It was noted by patient's that the patient experienced increased disorganized speech and flat affect since this afternoon. She notes this is similar to how he appeared when he received dilaudid on POD 1, and expressed concern the medication may be related to his current state as he received another dose of the medication for pain this morning. She also states he continues to have rectal bleeding, which appeared to be "fresh" bright, red, blood today as opposed to clotted blood. O: Vital Signs: Temp Pulse Resp BP Pulse Ox 97.8 F 74 16 126/68 97 09/03/18 07:24 09/03/18 07:24 09/03/18 12:35 09/03/18 07:24 09/03/18 07:24 Intake and Output Last 24 Hours 09/01/18 09/02/18 09/03/18 09/04/18 06:59 06:59 06:59 06:59 Intake Total 5620 4944 1660 1190 Output Total 1495 3924 2222 505 Balance 4125 1020 -562 685 Intake: IV Fluids 5620 4944 980 990 IV tylenol 100 LR 5470 4944 980 990 NS 50ML, Ertopenin 1G 50 Oral 0 0 680 200 Output: JOSÉ MIGUEL #1 95 60 30 Urine 650 1252 505 [place] 1300 1550 650 Estimated Blood Loss 100 1664 290 Other: Estimated Void Medium # Bowel Movements 0 0 1 Estimated Stool Amount Medium # Voids 1 Laboratory Tests 09/01/18 09/02/18 09/03/18 14:08 06:38 06:14 WBC 9.8 RBC 3.48 L Hgb 11.1 L 10.5 L 10.7 L Hct 32 L 31 L 31 L Plt Count 147 L PE: General: Alert and oriented to self. Flat affect, speech incomprehensible at times. Lungs: CTA. Heart: RRR. No murmurs noted. Abdomen: Soft. Mild tenderness noted at incisions. Vertical midline incision , laproscopic incision, and ostomy site healing well, without active bleeding or erythema. Green and yellow ecchymosis noted distal to vertical incision. Blood noted in JOSÉ MIGUEL tube. A: s/p laproscoptic converted to open colostomy reversal Rectal bleeding Altered mental status Parkinson's disease P: Surgical incisions appear to be healing well without signs of infection, dressings and packing changed. Will continue to monitor rectal bleeding, hgb and hct continue to be stable. Patient's change in mental status appears to be related to pain medication and will discontinue dilaudid and continue pain management with tylenol. Neurology managing parkinson's disease.
--- NOTE | 2018-09-03 16:05 | PN ---
Progress Note - Progress Note Date of Service: 09/03/18 SOAP: Subjective: He has no pain, N/V. Is passing flatus per and RN. Scant BPR that is dark. noted he would not communicate after Dilaudid and thinks he will do well with just Tylenol. He asked for a steak this morning. Objective: Vital Signs Temp 97.8 F 09/03/18 07:24 Pulse 74 09/03/18 07:24 Resp 16 09/03/18 12:35 BP 126/68 09/03/18 07:24 Pulse Ox 97 09/03/18 07:24 Gen: flat affect; sitting in chair; NAD Abd: incision is c/d/i no erythema; JOSÉ MIGUEL has dark blood; ostomy site clean with packing changed. Mild tenderness. Intake & Output 09/02/18 09/03/18 09/03/18 18:59 06:59 18:59 Intake Total 1420 962 5649 Output Total 1860 362 505 Balance -830 268 685 Intake: IV Fluids 980 990 LR 980 990 Oral 50 630 200 Output: JOSÉ MIGUEL #1 20 10 Urine 900 352 505 [place] 650 Estimated Blood Loss 290 Other: Estimated Void Medium # Bowel Movements 0 1 Estimated Stool Amount Medium # Voids 1 Laboratory Results - last 24 hr 09/01/18 09/03/18 06:02 06:14 Hgb 10.7 L Hct 31 L Crossmatch See Detail Active Medications Generic Name Dose Route Start Last Admin Trade Name Freq PRN Reason Stop Dose Admin Acetaminophen 650 mg 08/31/18 12:26 Tylenol Tab* PO Q4H PRN PAIN Carbidopa/Levodopa 0.5 tab 09/02/18 15:00 09/03/18 14:56 Sinemet 25/100 Tab(*) PO 0.5 tab 1000,1200,1330,1500 [facility] Administration Carbidopa/Levodopa 1 tab 09/03/18 08:00 09/03/18 09:34 Sinemet 25/100 Tab(*) PO 1 tab 0800 [facility] Administration Carbidopa/Levodopa 0.5 tab 09/02/18 17:00 09/02/18 17:01 Sinemet 25/100 Tab(*) PO 0.5 tab 1700 [facility] Administration Lactated Ringer's 1,000 mls @ 50 mls/hr 09/02/18 13:00 09/02/18 13:15 Lactated Ringers 1000 Ml Bag* IV 50 mls/hr PER RATE [facility] Administration Levothyroxine Sodium 125 mcg 09/01/18 06:00 09/03/18 05:46 Synthroid Tab* PO 125 mcg DAILY@0600 [facility] Administration Ondansetron HCl 4 mg 08/31/18 12:27 Zofran Inj* IV Q6H PRN NAUSEA Rotigotine 1 each 08/31/18 16:00 09/02/18 15:38 Neupro TOPICAL 1 each Q24H [facility] Administration Assessment: POD#3 s/p colostomy rvsl. Doing well. No ongoing bleed. Plan: Adv diet. Tylenol for pain, Prob can go home 1-2 days. D/w who feels she can do packing changes.
--- NOTE | 2018-09-03 16:34 | PN ---
Subjective Date of Service: 09/03/18 Length of Stay: 3 Days Neurology is following for Parkinson's disease. Interval History: I evaluated the patient twice today. He was seen in the morning sitting in bed, frustrated. According to Mrs. Zepeda, the frustration is a good sign as this is how he gets when he is more awake and himself again. He is asking to advance his diet and wants to eat his "mother's'' food. He is hallucination and [place]. Again, Mrs. Zepeda is not concerned as he is known to have hallucinations in the hospital. She wants to get him home as soon as possible. We got him up from bed to the bathroom. He has been urinating frequently lately. He seems more awake after starting the Sinemet. I was then called by the bedside nurse at 1430 as the patient was more confused and not his usual self. He had received Dilauded around 1130 a.m. He was not complaining of any pain now but is less cooperative. His eyes are wide open and he tracks the examiner. He denied any focal weakness or paresthesia. Review of Systems: Denied CP, SOB, or palpitations. Objective Active Medications: Acetaminophen (Tylenol Tab*) 650 mg PO Q4H PRN PRN Reason: PAIN Carbidopa/Levodopa (Sinemet 25/100 Tab(*)) 0.5 tab PO 1000,1200,1330,1500 [facility] Last Admin: 09/03/18 14:56 Dose: 0.5 tab Carbidopa/Levodopa (Sinemet 25/100 Tab(*)) 1 tab PO 0800 [facility] Last Admin: 09/03/18 09:34 Dose: 1 tab Carbidopa/Levodopa (Sinemet 25/100 Tab(*)) 0.5 tab PO 1700 [facility] Last Admin: 09/02/18 17:01 Dose: 0.5 tab Lactated Ringer's (Lactated Ringers 1000 Ml Bag*) 1,000 mls @ 50 mls/hr IV PER RATE [facility] Last Admin: 09/02/18 13:15 Dose: 50 mls/hr Levothyroxine Sodium (Synthroid Tab*) 125 mcg PO DAILY@0600 [facility] Last Admin: 09/03/18 05:46 Dose: 125 mcg Ondansetron HCl (Zofran Inj*) 4 mg IV Q6H PRN PRN Reason: NAUSEA Rotigotine (Neupro) 1 each TOPICAL Q24H [facility] Last Admin: 09/02/18 15:38 Dose: 1 each Vital Signs 09/02/18 09/02/18 09/03/18 19:15 20:00 00:13 Temperature 99.3 F 98.8 F Pulse Rate 86 84 Respiratory 14 16 16 Rate Blood Pressure 145/64 156/70 (mmHg) O2 Sat by Pulse 95 97 Oximetry 09/03/18 09/03/18 09/03/18 07:24 11:06 12:35 Temperature 97.8 F Pulse Rate 74 Respiratory 16 16 16 Rate Blood Pressure 126/68 (mmHg) O2 Sat by Pulse 97 Oximetry Intake and Output Last 24 Hours 09/01/18 09/02/18 09/03/18 09/04/18 06:59 06:59 06:59 06:59 Intake Total 5620 4944 1660 1190 Output Total 1495 3924 2222 505 Balance 4125 1020 -562 685 Intake: IV Fluids 5620 4944 980 990 IV tylenol 100 LR 5470 4944 980 990 NS 50ML, Ertopenin 1G 50 Oral 0 0 680 200 Output: JOSÉ MIGUEL #1 95 60 30 Urine 650 1252 505 [place] 1300 1550 650 Estimated Blood Loss 100 1664 290 Other: Estimated Void Medium # Bowel Movements 0 0 1 Estimated Stool Amount Medium # Voids 1 Oxygen Devices in Use Now: None Neurology Exam: General: Well nourished, well developed, and in no acute distress HEENT: Normocephelic/atraumatic, sclera anicteric, mucous membranes moist Extremities: No clubbing, cyanosis, or edema Neurological Findings: Awake, alert, and oriented to person, but not place or time. He did recognize me and his spouse. Speech: moderate hypophonia. Cranial Nerve: PERRL, EOM intact, VFF, no nystagmus Motor: able to elevate all 4 extremities to command. Mild resting tremor on the right. No cogwheel rigidity. Sensation: intact to LT/PP bilaterally upper and lower extremities Deep Tendon Reflex: 1+ symmetric in the upper/lower extremities, Babinski - down going Coordination: normal finger to nose with some mild bradykinesia. He was trouble focusing on the examiner's finger. Gait: shuffling gait, fast and impulsive movements when ambulating. Result Diagrams: 09/03/18 06:14 09/02/18 06:38 Assessment/Plan 1. Hypoactive delirium following Dilaudid. Please switch the Dilaudid to PO acetaminophen or low dose percocet. Rule out UTI since the patient had a urinary catheter placed recently (has been removed). 2. Parkinson's disease with psychosis and dementia Tolerating Neupro patch and Sinemet. To reduce the hallucination, I discontinued the Neupro patch, and did not start seligeline or amantadine since his tone is well and he isn't symptomatic from the motor symptoms of Parkinson' s. We can restart amantadine in the morning, at a lower dose to prevent amantadine withdrawal. However, continue the Sinemet 25/100 mg - half a tablet four times a day and one tablet in the morning. Continue OOB to chair and working with PT 3. S/p surgery with rectal bleeding- bleeding seems to be improving. Defer to surgery. Dr. Champion will be covering the neurology service this weekend. We will continue to follow.
[2018-09-03] MEDS: ROTIGOTINE 2 MG/24 HR TOPICAL SCH (16:38)
[2018-09-04] MEDS: Lactated Ringers 1000 ML Bag* 1,000 ML IV SCH (05:55)
[2018-09-04] MEDS: Levothyroxine TAB* 125 MCG TAB PO SCH (06:05)
[2018-09-04] MEDS: Carbidopa/Levodop 25/100 MG TAB(*) PO SCH ×2 (08:34→10:32)
[2018-09-04] MEDS ORDERED: Amantadine CAP* 100 MG PO SCH (09:00)
--- NOTE | 2018-09-04 10:52 | PN ---
NEUROLOGICAL FOLLOWUP: DATE OF SERVICE: 09/04/18 PATIENT OF: Dr. Padilla and Dr. Patel. HISTORY: This is a neurological followup for his Parkinson disease. He had hallucinations and confusion, but this seems to have followed Dilaudid administration. His said he began to get less confused yesterday afternoon and has done fine since without any further problems. He was in the hospital for his abdominal surgery. He remains alert and awake and able to do complicated math problems and discuss them. MEDICATIONS: Include: 1. Amantadine 100 mg daily. 2. Sinemet half a tab 5 times a day with 1 full tab in the morning of . 3. Synthroid 125 mcg daily. 4. Zofran p.r.n. PHYSICAL EXAMINATION: On exam, temperature 97.7, pulse 76, respiratory rate 16 , blood pressure 135/75. He was alert and oriented. He was hard to understand because of soft voice and some mumbling, but he was listening with normal comprehension. Cranial nerves II through XII were intact, other than a paucity of facial expression, although he did smile at one point. He had diffuse bradykinesias and cogwheeling with some mild tremor. Chest: Clear. Cardiovascular: Regular rate and rhythm. Abdomen: Soft, positive bowel sounds. ASSESSMENT AND PLAN: I discussed with his and him and then his surgeon that as soon as he can go home from a surgical point of view, it would be good for his neurological condition for him to be in a familial home environment. I recommend that if he does not got home until later today or tomorrow for him to get up and out of bed so he does not have a worsening orthostatic hypotension. Followup should be with Dr. Yeager and his medicines should continue as is. Thank you for sharing his case. [id number]/[facility] #: [id number] NEY
[2018-09-04 10:53] LABS: Urine Appearance Clear; Urine Bacteria Absent (Absent); Urine Bilirubin Negative (Negative); Urine Blood 1+ (Negative); Urine Color Yellow; Urine Glucose Negative (Negative); Urine Ketones 1+ (Negative); Urine Nitrite Negative (Negative); Urine Protein Negative (Negative); Urine Red Blood Cell Trace(0-2/hpf) (Absent); Urine Specific Gravity 1.009 (1.010-1.030); Urine Squamous Epithelial Cell Present (Absent); Urine Urobilinogen Negative (Negative); Urine White Blood Cell Trace(0-5/hpf) (Absent)
[2018-09-04 11:31] VITALS: BP 109/55
== END 2018-09-04 11:56 | disposition home or self-care (01) | DRG 345 ==
LOC: AA 05:41 → SSU 12:00
PROVIDERS: ADMIT Surgery; ATTEND Surgery
PROC: 0WJG4ZZ Inspection of Peritoneal Cavity, Percutaneous Endoscopic Approach (ICD-10-PCS; 2018-08-31)
PROC: 0DSM0ZZ Reposition Descending Colon, Open Approach (ICD-10-PCS; principal; 2018-08-31 07:30)
DX: Z43.3 Encounter for attention to colostomy (principal); N40.0 Benign prostatic hyperplasia without lower urinary tract symptoms; E03.9 Hypothyroidism, unspecified; G31.83 Neurocognitive disorder with Lewy bodies; F02.80 Dementia in other diseases classified elsewhere, unspecified severity, without behavioral disturbance, psychotic disturbance, mood disturbance, and anxiety; G89.29 Other chronic pain; M54.5 Low back pain; Z90.89 Acquired absence of other organs; Z79.890 Hormone replacement therapy; Z53.31 Laparoscopic surgical procedure converted to open procedure; K62.5 Hemorrhage of anus and rectum; R41.82 Altered mental status, unspecified; R40.0 Somnolence; R41.0 Disorientation, unspecified
CPT/HCPCS: 36415; 80048; 81003; 81015; 85014; 85018; 85025; 85027; 86850; 86900; 86901; 86922; 87077; 87086; 87186; 88304; A9270-GY; J1100; J1170; J1335; J1644; J1885; J2250; J2405; J3010

== ENCOUNTER → 2018-12-16 06:41 | Day surgery (SDC) | payer OTHER ==
[~2018-12-16 06:41] MED LIST changes: +Bupivacaine 0.25% SDV PF* 10 ML VIAL INJ ONE; -ERTApenem(*) 1 GM in NS 0.9% 50 ML* 50 ML IVPB SCH; +Lactated Ringers 1000 ML Bag* 1,000 ML IV SCH; +Lidocaine 1% INJ* 10 MG/ML 30 ML SDV ONE; +Lidocaine 2% PF * 5 ML VIAL ONE; +Naloxone* 0.4 MG/ML 1 ML VIAL IV PRN; +Propofol* 10 MG/ML 20 ML BTL ONE; +ceFAZolin 2 GM in NS PREMIX(*) 2 GM/100 ML BAG IVPB ONE; +fentaNYL* 50 MCG/ML 2 ML VIAL (100 MCG VIAL) ONE
[2018-12-16 11:19] VITALS: BP 144/79
--- NOTE | 2018-12-16 21:03 | OP ---
CC: Dr. Rose * DATE OF OPERATION: 12/16/18 - [facility] DATE OF : 47 SURGEON: Terrence Coles MD. ANESTHESIOLOGIST: Dr. Hawk. ANESTHESIA: Local MAC. PRE-OP DIAGNOSIS: Post laminectomy syndrome. POST-OP DIAGNOSIS: Post laminectomy syndrome. OPERATIVE PROCEDURE: Percutaneous dorsal column stimulator trial lead placement. FLUIDS: Per Anesthesia. ESTIMATED BLOOD LOSS: Less than 5 cc. BRIEF PREOPERATIVE NOTE: The patient is a 73-year-old male who suffers from post laminectomy syndrome. The patient has failed conservative measures and was offered a percutaneous dorsal column stimulator trial to see if we could help manage his pain, so that he could ambulate without significant pain. He also suffers from Parkinson's disease and between the pain he is experiencing from his post laminectomy syndrome and the Parkinson's disease, ambulation has been limited because of his pain. I had a chance to discuss with him and his the risks, benefits, and alternatives of therapy including the possibility of postdural puncture headache, bleeding, infection, failure of the device to work, nerve injury and after going over with the risks, benefits and alternatives, informed consent was obtained. DESCRIPTION OF PROCEDURE: The patient was brought to the operating suite, placed prone on the operating room table. His back was prepped and draped in the usual sterile fashion. Using fluoroscopy, I identified the L1-2 translaminar space. I anesthetized the skin and subcutaneous tissues over the inferior aspect of the right L2 pedicle using 1% lidocaine mixed with 0.25% bupivacaine. Using a 11 blade, I made a skin slava and using a 14-gauge coude epidural needle, I directed under fluoroscopic guidance to the L1-2 translaminar space. I identified the epidural space using loss of resistance to air technique. There was no CSF, blood, or paresthesias noted. There was negative aspiration. I proceeded to pass a 16-contact Infinion lead into the epidural space and guided it to the bottom of the T8 to the right of midline. I then anesthetized the skin and subcutaneous tissues on the left side of the pedicle at L2 using 1% lidocaine and 0.25% bupivacaine. Using a #11 blade, I made a skin slava and a 14-gauge coude Tuohy needle was advanced under fluoroscopic guidance to the L1-2 interspace, where I identified the epidural space using loss of resistance to air technique. There was no CSF, no blood, no paresthesias noted. There was negative aspiration. I proceeded to pass another 16- contact Infinion lead into the epidural space and guided it to the left of midline lying parallel with the other lead. Lateral fluoroscopic view was obtained, which showed good posterior placement in the epidural space. Testing was then commenced to see if we could cover the patient's pain areas and with some manipulation of the leads we were able to cover the patient's pain areas. The superior aspect of leads were at the midpoint of the T7 vertebral body. The stylettes and needles were withdrawn. The leads were then anchored to the skin using the silicone anchoring boot and 2-0 Prolene sutures and a 0 silk suture was used to cinch the lead to the anchor. Steri-Strips were placed to secure and anchor the leads to the skin. Sterile 4x4s and Tegaderm were placed over the leads and extensions. The patient was then brought to the recovery room where his stimulator will be programmed by the [employer] sales representative. He will follow up with my office in 7 days. He is instructed not to bathe, shower, or get the leads wet. If any questions or concerns, they can contact our office. [id number]/[facility] #: [id number] NEY
== END | disposition home or self-care (01) ==
LOC: OR 06:41
PROVIDERS: ATTEND Anesthesiology Pain Medicine
DX: M54.16 Radiculopathy, lumbar region (principal); Z98.890 Other specified postprocedural states; G20 Parkinson's disease; E03.9 Hypothyroidism, unspecified; N40.0 Benign prostatic hyperplasia without lower urinary tract symptoms
CPT/HCPCS: 77003; C1897; J0690; J2704; J3010; J3490

== ENCOUNTER 2019-02-18 11:54 | Day surgery (SDC) | payer OTHER ==
[~2019-02-18 11:54] MED LIST changes: -Bupivacaine 0.25% SDV PF* 10 ML VIAL INJ ONE; +Dexamethasone IV* 4 MG/ML 1 ML (4 MG) IV SLOW PU ONE; +Famotidine IV* 10 MG/ML 2 ML (20 mg) IV ONE; -Lidocaine 1% INJ* 10 MG/ML 30 ML SDV ONE; -Lidocaine 2% PF * 5 ML VIAL ONE; -Naloxone* 0.4 MG/ML 1 ML VIAL IV PRN; -Propofol* 10 MG/ML 20 ML BTL ONE; -ceFAZolin 2 GM in NS PREMIX(*) 2 GM/100 ML BAG IVPB ONE; -fentaNYL* 50 MCG/ML 2 ML VIAL (100 MCG VIAL) ONE
[2019-02-18] MEDS ORDERED: Dexamethasone IV* 4 MG/ML 1 ML (4 MG) ONE (13:05)
[2019-02-18] MEDS ORDERED: ceFAZolin 2 GM in NS PREMIX(*) 2 GM/100 ML BAG IVPB ONE (13:05)
[2019-02-18] MEDS ORDERED: Famotidine IV* 10 MG/ML 2 ML (20 mg) ONE (13:05)
[2019-02-18] MEDS ORDERED: fentaNYL* 50 MCG/ML 2 ML VIAL (100 MCG VIAL) ONE ×2 (14:27→15:59)
[2019-02-18] MEDS ORDERED: Gentamicin ADULT (*) 40 MG/ML VIAL (2 ML VIAL = 80 MG) ONE (14:33)
[2019-02-18] MEDS ORDERED: Propofol* 10 MG/ML 20 ML BTL ONE ×2 (14:33→17:31)
[2019-02-18] MEDS ORDERED: Lidocaine 1% INJ* 10 MG/ML 30 ML SDV ONE (14:33)
[2019-02-18] MEDS ORDERED: Vancomycin(*) 1,000 MG VIAL ONE (14:33)
[2019-02-18] MEDS ORDERED: Bupivacaine 0.25% SDV PF* 10 ML VIAL INJ ONE (14:34)
[2019-02-18] MEDS ORDERED: Bacitracin INJECTION* 50,000 UNITS ONE (14:34)
[2019-02-18] MEDS ORDERED: ceFAZolin VIAL(*) VIAL ONE (14:34)
[2019-02-18] MEDS ORDERED: fentaNYL* 50 MCG/ML 2 ML VIAL (100 MCG VIAL) IV PRN (15:29)
[2019-02-18] MEDS ORDERED: Naloxone* 0.4 MG/ML 1 ML VIAL IV PRN (15:29)
[2019-02-18] MEDS ORDERED: ROPIVACAINE 5 MG/ML 30 ML BTL (0.5%) ONE (16:24)
[2019-02-18 18:54] VITALS: BP 141/82
--- NOTE | 2019-02-18 23:48 | OP ---
DATE OF OPERATION: 02/18/19 - [facility] DATE OF : 47 SURGEON: Terrence Coles MD. ANESTHESIOLOGIST: Dr. Burns. ANESTHESIA: Local, MAC. PRE-OP DIAGNOSIS: Post-laminectomy syndrome. POST-OP DIAGNOSIS: Post-laminectomy syndrome. OPERATIVE PROCEDURE: Permanent dorsal column stimulator, generator, and lead placement using [employer] ClassDojo System. FLUIDS: Per Anesthesia. BLOOD LOSS: Less than 50 cc. INDICATIONS: The patient is a 74-year-old male who suffers from post- laminectomy syndrome and had a successful dorsal column stimulator trial. The patient is here today for permanent implantation for treatment of postlaminectomy syndrome. The patient and I discussed the risks, benefits, alternatives of therapy including the risks of postdural puncture headache, infection, bleeding, hematoma formation, and failure of the device to work. After going over the risks of the procedure, an informed consent was obtained. DESCRIPTION OF PROCEDURE: The patient was brought to the operative suite, placed prone on the operative table. His back was prepped and draped in the usual sterile fashion. Using fluoroscopy, I identified the T12-L1 interspace. I anesthetized the skin and subcutaneous tissues over the midline of L1-2 with 0.25% bupivacaine and 1% lidocaine and using a #10 scalpel blade, I made a midline incision over the L1-2 vertebral bodies. I dissected down using electro -cautery to the spinous processes. Hemostasis was obtained with electrocautery. Then, using a 14 gauge Coude epidural needle, I directed under fluoroscopic guidance to T12-L1 interspace and identified the epidural space using loss-of- [id number] technique. There was no CSF, blood or paresthesia noted. There was negative aspiration. An 8- Contact linear lead was passed into the epidural space and guided to cover the T7 vertebral body to the right of midline. I then used another 14-gauge Coude epidural needle and identified the epidural space at T12-L1. After negative aspiration, there was no blood or paresthesia noted, I proceeded to pass an 8- Contact linear lead into the epidural space and guided it to lie parallel to the other lead, to the left of midline. I then checked the lateral fluoroscopic view and showed good posterior placement in the epidural space. The leads were then tested and showed good coverage of the patient's back and leg pain. The needles and stylettes were withdrawn and the leads were anchored to the interspinous ligaments using the Fixate Anchoring System. I then used the silk suture to secure the right lead anchor additionally and the screws were tightened until audible clicks were heard. I then used a template to rishi an area on the right flank for the IPG placement. I then anesthetized the skin and subcutaneous tissues with 0.25% bupivacaine mixed with 1% lidocaine. Using a #10 scalpel blade I made a transverse incision and dissected down using electrocautery to create a pocket. I then used Metzenbaum scissors to dissect additional tissue to create the pocket that would fit the IPG. Hemostasis was obtained with electrocautery and the wound was packed with antibiotic irrigant soaked sponges. The attention was turned to the midline incision where the hemostasis was confirmed using electrocautery. I then irrigated the wound copiously with antibiotic irrigation. I then created a retention loop and tied that using a 0- silk suture. Approximately 250 mg of vancomycin powder was placed in the midline incision. Deep tissues were closed with interrupted 2-0 Polysorb sutures. I then closed the more superficial layers with interrupted 3-0 Polysorb sutures, a running 4-0 Polysorb subcuticular closure, and then a 3-0 Prolene suture was used to close the skin using a running closure. I then focussed on the pocket. Hemostasis was confirmed with electrocautery. The wound was irrigated copiously with antibiotic irrigation. The leads have been passed to the pocket using the tunneling device and the leads were then connected to the generator and continuity confirmed. The generator was placed in the pocket. Approximately 250 mg of vancomycin powder was placed into the pocket and the wound was then closed with deep interrupted 2-0 Polysorb sutures , followed by more superficial interrupted 3-0 Polysorb sutures, followed by a skin closure using a running 3-0 Prolene locking suture. The wounds were infiltrated with 0.5% ropivacaine and the then DermaFlex was placed over the incisions, as well as Steri- Strips. Sterile dressings were applied to the wounds and the patient was brought to the recovery room in stable condition with instructions to follow up with me as scheduled. They were given my cell phone number to call me if there are any questions or concerns. We will see him back in the office in approximately 10 to 14 days. [id number]/[facility] #: [id number] NEY
== END 2019-02-18 19:00 | disposition home or self-care (01) ==
LOC: OR 11:54
PROVIDERS: ATTEND Anesthesiology Pain Medicine
DX: M96.1 Postlaminectomy syndrome, not elsewhere classified (principal); E03.9 Hypothyroidism, unspecified; G20 Parkinson's disease; N40.0 Benign prostatic hyperplasia without lower urinary tract symptoms
CPT/HCPCS: 76000; A9270-GY; C1713; C1778; C1787; C1820; J0690; J1100; J1580; J2704; J2795; J3010; J3370; J3490